=== PATIENT | male | born 1950 ===

== ENCOUNTER 2020-07-23 11:15 | Inpatient (IN) | payer OTHER ==
--- NOTE | 2020-07-23 12:11 | R.PREADM ---
PRE-ADMISSION SCREENING FORM SCREENING DATE AND TIME 07/22/2020 14:25 (CDT) ANTICIPATED REHAB ADMISSION DATE 07/24/2020 REFERRING FACILITY [facility] REFERRAL DATE AND TIME 07/22/2020 14:25 (CDT) ACUTE ADMIT DATE 07/02/2020 Previous Rehabilitation(s): No. REFERRING PHYSICIAN Akhil Collier REHAB FACILITY [facility] CLINICAL LIAISON Hui Mota PHYSICIAN REVIEWER Dr. Chaitanya Roldan M.D. MR# [id number] NAME NIKOLAY SOTELO ADDRESS [address] [facility] PHONE ( [place]IP [phone] DATE OF 1950 AGE 69 SSN# [id number] GENDER male MARITAL STATUS ADMIT FROM 02 - [facility] PRE-HOSPITAL LIVING SETTING 01 - Home (private home/apt. board/care, assisted living, half-way, transitional living) HOME TYPE AND DETAILS Type of home: apartment # of steps within the residence: 0 # of steps to enter the residence: 0 PRE-HOSPITAL LIVING WITH Alone FAMILY SUPPORT Yes PRIMARY FAMILY CONTACT NAME Ashia Vieira PRIMARY FAMILY CONTACT PHONE [phone] PHONE PRIMARY FAMILY CONTACT ON ADM.? no IS PRIMARY FAMILY CONTACT AUTH. REP.? no 1ST EMERGENCY CONTACT Ashia Vieira 1ST CONTACT PHONE [phone] PHONE 1ST CONTACT ON ADM. no IS 1ST CONTACT AUTH. REP.? no PHONE 2ND CONTACT ON ADM.? no PATIENT EMPLOYMENT STATUS Retired (for age) PATIENT EMPLOYER No Employer PAYOR INFORMATION: 1ST PAYOR NAME MEDICARE 1ST PAYOR PHONE [phone] 1ST PAYOR INJURY/ILLNESS DUE TO ACCIDENT? No ANOTHER [employer] RESPONSIBLE? No PRIMARY REHAB/ACUTE DIAGNOSIS: CAD/NSTEMI ONSET DATE 07/02/2020 REHAB IMPAIRMENT CATEGORY ([place]): 14 Cardiac does NOT meet 60% rule PRIMARY DIAGNOSIS-RELATED SURGERIES: CABG Cardiac Disorders (09) - performed by Akhil Collier on 07/15/2020 COMORBID REHAB/ACUTE DIAGNOSES: - Tier 1 Dependence on renal dialysis (Z99.2) - Non-Tiered Type 2 diabetes mellitus with diabetic neuropathy, unspecified (E11.40) - N/A NSTEMI Proteus UTI Acute on chronic encephalopathy HTN Anemia Secondary hyperPTH CAD BPH Dementia INTERVENTIONS: - CAD 02 sats Activity management Medications VS RISK FOR COMPLICATIONS: - CAD CHF Cardiac Arrest CO Pain SUMMARY OF ACUTE HOSPITALIZATION: Pt. is a 69 yo Right-handed male. On 07/02/2020 he was admitted to [facility] with diagnosis CAD. His impairment category is Cardiac 09 - Cardiac Disorders (09). Pre-morbidly, Pt. was independent/mod-I in Locomotion, Safety Awareness, Balance, Social Cognition, T ransfers Control, Sphincter Control, Self-Care, Communication, and Endurance; and he had good Locomot ion, Safety Awareness, Balance, Social Cognition, Transfers Control, Sphincter Control, Self-Care, an d Communication. Currently, he has deficits of Locomotion, Safety Awareness, Balance, Social Cognition, Transfers Cont rol, Self-Care, Communication, Endurance, and Sphincter Control. Pt. is now referred to [facility] for acute in-patient rehabilitation in order to maximize patient's functional independence in activities of daily living, strength, ROM, and mobi lity. Patient has realistic goal of being discharged at assistance level 7-Ind to reside at Home with Fami ly/Relatives. PAST MEDICAL HISTORY Acute on chronic encephalopathy Anemia BPH CAD Dementia Dependence on renal dialysis (Z99.2) HTN NSTEMI Proteus UTI Secondary hyperPTH Type 2 diabetes mellitus with diabetic neuropathy, unspecified (E11.40) MEDICATION ALLERGIES: No Known Drug Allergies (NKDA) ENVIRONMENTAL ALLERGIES: - Substance Allergies None Known - Other Allergies None Known CODE STATUS: Full code WEIGHT/HEIGHT/BMI: WEIGHT 154 lbs HEIGHT 5' 6" BMI 24.9 DIET: - Diet Type Regular - Diet - Solid Texture Regular - Diet - Liquid Texture Regular - Tube Feed N/A SKIN DIAGRAM: Incision on Chest; extent - small; stage - NS(Not Stageable). Treatment - Per Physician's Orders. REVIEW OF SYSTEMS: - Gen Alert and awake Lying in bed No apparent distress Oriented to: person, time, and place - Vital Signs Temperature: 36.7 F SBP/DBP: 122/66 Pulse: 74 Resp: 17 Vital signs stable, afebrile - CVS RRR VITAL SIGNS Temperature: 36.7. F SBP/DBP: 122/66 Pulse: 74 Resp: 17 Vital signs stable, afebrile CURRENT SPHINCTER CONTROL: Pre-hospital bladder status: continent # of bladder accidents in the last 7 days prior to screenin Pre-hospital bowel status: continent # of bowel accidents in the last 7 days prior to screenin Last Bowel Movement Date: 07/22/2020 CURRENT LOCOMOTION STATUS: distance walked 220 feet DETAILED CURRENT FUNCTIONAL STATUS: - Bladder accident frequency: 7-Ind - No accidents in the past 7 days - Bowel accident frequency: 7-Ind - No accidents in the past 7 days - Walking score based on distance walked: 0(N/A) score based on distance walked: 3(>=150ft) - Wheelchair score based on distance traveled: 0(N/A) QI SCORES: - Self-Care A. Eating 04-Supervision or touching assistance B. Oral hygiene 04-Supervision or touching assistance C. Toileting hygiene 02-Substantial/maximal assistance E. Shower/bathe self 02-Substantial/maximal assistance F. Upper body dressing 04-Supervision or touching assistance G. Lower body dressing 02-Substantial/maximal assistance H. Putting on/taking off footwear 88-Not attempted due to medical condition or safety concerns - Mobility A. Roll left and right 03-Partial/moderate assistance B. Sit to lying 03-Partial/moderate assistance C. Lying to sitting on side of bed 03-Partial/moderate assistance D. Sit to stand 03-Partial/moderate assistance E. Chair/dvf-yr-wikut transfer 03-Partial/moderate assistance F. Toilet transfer 03-Partial/moderate assistance G. Car transfer 88-Not attempted due to medical condition or safety concerns I. Walk 10 feet 03-Partial/moderate assistance J. Walk 50 feet with two turns 88-Not attempted due to medical condition or safety concerns K. Walk 150 feet 04-Supervision or touching assistance L. Walking 10 feet on uneven surfaces 88-Not attempted due to medical condition or safety concerns M. 1 step (curb) 88-Not attempted due to medical condition or safety concerns N. 4 steps 88-Not attempted due to medical condition or safety concerns O. 12 steps 88-Not attempted due to medical condition or safety concerns P. Picking up object 88-Not attempted due to medical condition or safety concerns R. Wheel 50 feet with two turns 88-Not attempted due to medical condition or safety concerns S. Wheel 150 feet 88-Not attempted due to medical condition or safety concerns - Bladder and Bowel Bladder continence 0-Always continent Bowel continence 0-Always continent - Endurance Fair - Balance Fair - Safety Awareness Fair CURRENT FUNC. DEFICITS: Self-Care, Mobility, Endurance, Balance, and Safety Awareness CURRENT / PREVIOUS ASSISTIVE DEVICES: BSC HISTORY OF FALLS. HAS THE PATIENT HAD TWO OR MORE FALLS IN THE PAST YEAR OR ANY FALL WITH INJURY IN T HE PAST YEAR?: No PRIOR SURGERY. DID THE PATIENT HAVE MAJOR SURGERY DURING THE 100 DAYS PRIOR TO ADMISSION?: Yes THERAPY NOTES FROM ACUTE CARE: Attached. SPECIAL NEEDS: - Safety Concerns Skin breakdown precautions needed due to skin breakdown risk PATIENT NEEDS ACTIVE AND ONGOING THERAPEUTIC INTERVENTION OF MULTIPLE THERAPY DISCIPLINES, INCLUDING: - Dietary and Nutrition Adequate Nutrition. Nutritional Education. Nutritional Supplements. PATIENT NEEDS CLOSE MEDICAL SUPERVISION BY A REHABILITATION PHYSICIAN FOR: Coordination of Treatment Team Diabetes Management Medical and Co-Morbidity Management Wound Care Pain Management Post-Op Complications PATIENT REQUIRES 24X7 REHAB NURSING FOR MEDICAL AND FUNCTIONAL MGT. OF THE FOLLOWING DEFICITS: Disease Management Medication Management Patient/Family Education Providing Safe Environment Skin Integrity Ambulation Transfers Pain Management Bowel and Bladder Management ADL's PATIENT REQUIRES INTENSIVE, COORDINATED INTERDISCIPLINARY APPROACH TO REHAB: Arranging Home Equipment/Services Discharge Planning Family Intervention/Training Casserole Preparer/Case Management PATIENT REHAB POTENTIAL: Kassi SOTELO is able and expected to receive 3 hours of individualized therapy daily on at least 5 of e very 7 days Kassi SOTELO's prognosis for significant practical improvement within a reasonable period of time appea rs Good Expected level of measurable improvement will be of a practical value to Kassi SOTELO's functional capa city or adaptations to impairments Has a viable Discharge Plan Medically appropriate; condition is sufficiently stable to participate in intensive rehab program DISCHARGE PLAN: - Estimated Length of Stay (days) 10. - Consensus on plan Discharge plan has been discussed with primary caregiver. Patient/Family is in agreement with the elsi n. Primary caregiver is in agreement with the plan. - Patient/Family Goals Return home independently. - Planned Living Setting Upon Discharge Home, to live with Family/Relatives. Transitional Living. Primary caregiver: Pt self. RECOMMENDED CARE LEVEL: IRF RECOMMENDATION DETAILS: Recommended Admission to Comprehensive Rehabilitation Program to Increase Functional [place] SCREENER'S COMPLETENESS CONFIRMATION: - Screening Confirmation The patient data collection on this preadmission screening form is finished PHYSICIANS REVIEW AND ADMISSION DETERMINATION Admit - Based on my review of the Pre-Admission Screening results, in my medical judgment and experie nce, I concur with the findings and recommend admission to [facility], as this patient requires an IRF level of care. SIGNATURE PANEL: Odd Bundle Worker - [electronically] signed by Hui Mota on 07/23/2020 at 10:54 (CDT) Odd Bundle Worker - [electronically] signed by Karin Belcher RN on 07/23/2020 at 11:00 (CDT) Physician Reviewer - [electronically] signed by Dr. Chaitanya Roldan M.D. on 07/23/2020 at 12:09 (CDT )
--- OUTSIDE RECORDS SUMMARY | 2020-07-23 23:24 | XMS REPORT | Continuity of Care Document ---
:1950 Author Organization [facility] t Address [address] [place] [address] Care Team Providers Name Role Phone Leilani Webber MD Primary Care Physician Rajni Collier Attending Clinician Unavailable DR RON Attending Clinician Unavailable DR MARCOS Attending Clinician Unavailable Rajni Collier Admitting Clinician Unavailable DR RON Admitting Clinician Unavailable DR MARCOS Admitting Clinician Unavailable Payers Payer Name Policy Type Policy Number Effective Date Expiration Date S ource Problems Condition Condition Condition Status Onset Resolution Last Treating Co mments Source Name Details Category Date Date Treatment Clinician Date Osteomyeli Osteomyeli Disease Active [place] [facility] 07-15 [facility] 00:[facility]: st 00 Allergies, Adverse Reactions, Alerts Allergy Allergy Status Severity Reaction(s) Onset Inactive Treating Comm ents Source Name Type Date Date Clinician No Known DA Active [facility] 07-18 s 00:00: [address] No Known DA Active [facility] 07-17 [place] s 00:00: [address] No Known DA Active U [facility] 07-03 [facility] 00:00: [address] Social History Social Habit Start Date Stop Date Quantity Comments Source Tobacco use and 2018-07-18 2018-07-18 Never used [place] [facility] exposure 00:00:00 00:00:00 Alcohol intake 2018-07-18 2018-07-18 Current drinker [place] [facility] 00:00:00 00:00:00 of alcohol (finding) Sex Assigned At [birth year] [facility]ist 00:00:00 00:00:00 Smoking Status Start Date Stop Date Source Never smoker [place] [facility] Medications Ordered Filled Start Stop Current Ordering Indication Dosage Frequency Signature Comments Components Source Medication Medication Date Date Medication? Clinician (SIG) Name Name pantoprazol Yes 40mg QD Take 1 [place] tablet (40 [facility] (PROTONIX) 00:00: mg total) st 40 MG EC 00 by mouth tablet daily. Procedures This patient has no known procedures. Plan of Care Planned Activity Planned Date Details Comments Source Future Scheduled 2020-09-08 INFLUENZA VACCINE [facility] 00:00:00 [code = INFLUENZA VACCINE] Future Scheduled 1998 COLONOSCOPY SCREENING [facility] Test 00:00:00 [code = COLONOSCOPY SCREENING] Future Scheduled 1998 SHINGLES VACCINES (#1) [facility] Test 00:00:00 [code = SHINGLES VACCINES (#1)] Future Scheduled 1966 Hepatitis C screening [facility] Test 00:00:00 (procedure) [code = 565463845] Future Scheduled 1960 COVID-19 VACCINE (1) Benjamin [facility] 00:00:00 [code = COVID-19 VACCINE (1)] Future Scheduled 1954 65+ PNEUMOCOCCAL [place] [facility] Test 00:00:00 VACCINE (1 of 2 - PPSV23) [code = 65+ PNEUMOCOCCAL VACCINE (1 of 2 - PPSV23)] Encounters Start End Encounter Admission Attending Care Care Encounter Source Date/Time Date/Time Type Type Clinicians Facility Department ID 2020-07-02 2020-07-23 Inpatient UR GALLITO Collier INTE [id number] [facility] 13:10:00 21:01:00 Akhil [id number] [facility] 2020-06-28 2020-07-03 Inpatient [place] [facility]AS [facility] [place] [id number] [place] 10:16:00 18:26:00 [facility] 2018-08-22 2018-08-25 Inpatient Claudia RODRÍGUEZ [facility] [id number] [place] 18:08:00 19:47:00 [facility] Results Test Description Test Time Test Comments Results Result Comments Source GLUCOSE BEDSIDE TESTING 2020-07-23 20:43:00 Test Item Value Reference Range Interpretation Comme nts GLUCOSE BEDSIDE TESTING (test code = GLUBED) 263 MG/DL 60-99 H GLUCOSE BEDSIDE [id number] 16:53:00 Test Item Value Reference Range Interpretation Comments GLUCOSE BEDSIDE TESTING (test code 229 MG/DL 60-99 H = GLUBED) GLUCOSE BEDSIDE [id number] 11:27:00 Test Item Value Reference Range Interpretation Comments GLUCOSE BEDSIDE TESTING (test code 294 MG/DL 60-99 H = GLUBED) GLUCOSE BEDSIDE [id number] 07:43:00 Test Item Value Reference Range Interpretation Comments GLUCOSE BEDSIDE TESTING (test code 228 MG/DL 60-99 H = GLUBED) GLUCOSE BEDSIDE [id number] 04:01:00 Test Item Value Reference Range Interpretation Comments GLUCOSE BEDSIDE TESTING (test code 218 MG/DL 60-99 H = GLUBED) COMPREHENSIVE METABOLIC [id number] 03:56:00 Test Item Value Reference Range Interpretation Comments SODIUM (test code 136 MMOL/L 137-145 L = NA) POTASSIUM (test 4.8 MMOL/L 3.5-5.1 N code = K) CHLORIDE (test 103 MMOL/L 98-107 N code = CL) CARBON DIOXIDE 23 MMOL/L 22-30 N (test code = CO2) ANION GAP (test 15 MMOL/L 14-24 N code = GAP) GLUCOSE (test 220 MG/DL 74-106 H code = GLU) BLOOD UREA 43 MG/DL 9-20 H NITROGEN (test code = BUN) GLOMERULAR 15 Reporting units : FILTRATION RATE ml/min/1.73 m2 (Modified (test code = GFR) MDRD Formu la)Reference Range: > or = 6 0 ml/min/1.73 m2 CREATININE (test 3.90 MG/DL 0.66-1.25 H code = CREAT) TOTAL PROTEIN 6.7 G/DL 6.2-7.6 N [facility] Clinical Diagnostic (test code = has made us zayra re of PROT) newinformation regarding the potential i nterference ofEltrombopag (a bone marrow stimulan t used to treatthrombocyt onmenia and aplastic anemia ) with specific assays on the Vitros 5600 of which Total Protein is one of thoseassays per formed in our lab.Interfe rence testing perform ed at Ortho determined that Eltrombopag does interfere with Vitros Total Protein asfollowsEltrom bopag Interference fo r Vitros Product Total Protein:======= Eltrombopag Max Observed A vg. BiasConcentrati on Concentration Concentration== ==== 2.5 mg/dl 6.0 g/dl +0.41 +0.34 3.5 mg/dl 6.0 g/dl +0.50 +0.45 5 mg/dl 6.0 g/dl +0.73 +0.65 2.5 mg/dl 8.0 g/dl +0.44 +0.41 3.5 mg/dl 8.0 g/dl +0.55 +0.52 5 mg/dl 8.0 g/dl +0.86 +0.77 ALBUMIN (test 3.5 G/DL 3.5-5.0 N code = ALB) CALCIUM (test 9.0 MG/DL 8.4-10.2 N code = CA) BILIRUBIN TOTAL 0.5 MG/DL 0.2-1.3 N Eltrombopag Interference (test code = for Vitros Prod uct TBil, BILT) BuBc: Assa y Eltrombopag Analyte/ Max Observed Avg. Bias Concentrati on Concentration Concentration== ====TBil 7mg/dl T Raj/ 1.2mg/dl +0.23 mg.dl +0.20mg/dlBuBc 3.5mg/dl Bu/0.8mg/dl +0.25mg/dl +0 .24mg/dlBuBc 7 mg/dl Bu/14.2mg/dl +0.38mg/dl +0.25mg/dlBuBc 5mg/dl Bc/0mg/dl +0.25mg/dl +0 .15mg/dlBuBc 3.5mg/dl Bc/2.8mg/dl +0.25mg/dl +0.23mg/dl SGOT/AST (test 27 UNITS/L 17-59 N code = AST) SGPT/ALT (test 21 UNITS/L <50 code = ALT) ALKALINE 102 UNITS/L 38-126 N PHOSPHATASE (test code = ALKP) [id number] 03:56:00 Test Item Value Reference Range Interpretation Comments PHOSPHOROUS (test code = PHOS) 4.1 MG/DL 2.5-4.5 N [id number] 03:56:00 Test Item Value Reference Range Interpretation Comments MAGNESIUM (test code = MAG) 1.8 MG/DL 1.6-2.3 N CBC W/AUTO [id number] 03:45:00 Test Item Value Reference Range Interpretation Comments WHITE BLOOD CELL (test code = 5.0 K/MM3 3.8-9.8 N WBC) RED BLOOD CELL (test code = 3.02 M/MM3 3.95-5.67 L RBC) HEMOGLOBIN (test code = HGB) 8.9 G/DL 12.4-16.7 L HEMATOCRIT (test code = HCT) 28.6 % 35.9-49.5 L MEAN CELL VOLUME (test code = 95 fL 81.7-96.1 N MCV) MEAN CELL HGB (test code = MCH) 29.5 pg 27.6-33.2 N MEAN CELL HGB CONCETRATION 31.1 % 32.9-35.5 L (test code = MCHC) RED CELL DISTRIBUTION WIDTH 15.1 % 12.1-15.2 N (test code = RDW) PLATELET COUNT (test code = 213 K/MM3 129-368 N PLT) MEAN PLATELET VOLUME (test code 10.2 fl 7.4-10.4 N = MPV) NEUTROPHIL % (test code = NT%) 67.1 % 43-75 N IMMATURE GRANULOCYTE % (test 1.4 % 0.0-2.0 N code = IG%) LYMPHOCYTE % (test code = LY%) 16.9 % 14-44 N MONOCYTE % (test code = MO%) 10.8 % 4-13 N EOSINOPHIL % (test code = EO%) 3.0 % 0-6 N BASOPHIL % (test code = BA%) 0.8 % 0-2 N NUCLEATED RBC % (test code = 0.0 % 0-1.0 N NRBC%) NEUTROPHIL # (test code = NT#) 3.34 K/mm3 2.0-7.6 N IMMATURE GRANULOCYTE # (test 0.07 x10 3/uL 0-0.03 H code = IG#) LYMPHOCYTE # (test code = LY#) 0.84 K/mm3 1.0-3.8 L MONOCYTE # (test code = MO#) 0.54 K/mm3 0.1-0.8 N EOSINOPHIL # (test code = EO#) 0.15 K/mm3 0.0-0.2 N BASOPHIL # (test code = BA#) 0.04 K/mm3 0.0-0.2 N NUCLEATED RBC # (test code = 0.00 K/mm3 0.0-0.1 N NRBC#) GLUCOSE BEDSIDE [id number] 19:28:00 Test Item Value Reference Range Interpretation Comments GLUCOSE BEDSIDE TESTING (test code 238 MG/DL 60-99 H = GLUBED) GLUCOSE BEDSIDE [id number] 16:17:00 Test Item Value Reference Range Interpretation Comments GLUCOSE BEDSIDE TESTING (test code 175 MG/DL 60-99 H = GLUBED) GLUCOSE BEDSIDE [id number] 11:56:00 Test Item Value Reference Range Interpretation Comments GLUCOSE BEDSIDE TESTING (test code 191 MG/DL 60-99 H = GLUBED) GLUCOSE BEDSIDE [id number] 05:47:00 Test Item Value Reference Range Interpretation Comments GLUCOSE BEDSIDE TESTING (test code 280 MG/DL 60-99 H = GLUBED) GLUCOSE BEDSIDE [id number] 17:35:00 Test Item Value Reference Range Interpretation Comments GLUCOSE BEDSIDE TESTING 222 MG/DL 60-99 H Noti fied Nurse~ (test code = GLUBED) GLUCOSE BEDSIDE [id number] 12:02:00 Test Item Value Reference Range Interpretation Comments GLUCOSE BEDSIDE TESTING 212 MG/DL 60-99 H Noti fied Nurse~ (test code = GLUBED) GLUCOSE BEDSIDE [id number] 07:17:00 Test Item Value Reference Range Interpretation Comments GLUCOSE BEDSIDE TESTING 196 MG/DL 60-99 H Noti fied Nurse~ (test code = GLUBED) GLUCOSE BEDSIDE [id number] 19:55:00 Test Item Value Reference Range Interpretation Comments GLUCOSE BEDSIDE TESTING (test code 261 MG/DL 60-99 H = GLUBED) GLUCOSE BEDSIDE [id number] 16:48:00 Test Item Value Reference Range Interpretation Comments GLUCOSE BEDSIDE TESTING 215 MG/DL 60-99 H Noti fied Nurse~ (test code = GLUBED) GLUCOSE BEDSIDE [id number] 12:59:00 Test Item Value Reference Range Interpretation Comments GLUCOSE BEDSIDE TESTING 184 MG/DL 60-99 H Noti fied Nurse~ (test code = GLUBED) GLUCOSE BEDSIDE [id number] 09:10:00 Test Item Value Reference Range Interpretation Comments GLUCOSE BEDSIDE TESTING (test code 173 MG/DL 60-99 H = GLUBED) GLUCOSE BEDSIDE [id number] 20:53:00 Test Item Value Reference Range Interpretation Comments GLUCOSE BEDSIDE TESTING (test code 157 MG/DL 60-99 H = GLUBED) GLUCOSE BEDSIDE [id number] 16:09:00 Test Item Value Reference Range Interpretation Comments GLUCOSE BEDSIDE TESTING (test code 159 MG/DL 60-99 H = GLUBED) GLUCOSE BEDSIDE [id number] 11:56:00 Test Item Value Reference Range Interpretation Comments GLUCOSE BEDSIDE TESTING (test code 211 MG/DL 60-99 H = GLUBED) - XR CHEST [id number] 08:08:00 [facility] 1950 Sex: M Patient Name: NIKOLAY SOTELO Unit No: [id number] EXAMS: CPT CODE: [id number] XR CHEST [id number] EXAM: - XR CHEST 1V HISTORY: S/P CABG COMPARISON: 07/18/2020 FINDINGS: Right internal jugular dialysis catheterand left subclavian central line in unchanged position. Median sternotomy wires again noted. Patchy retrocardiac airspace opacities are similar to the prior exam. No pleural effusionor pneumothorax. Mild enlargement of the cardiac silhouette. No acute osseous abnormalities. IMPRESSION: Mild retrocardiac atelectasis and/or pulmonary edema. at 0808 Reported and signed by: Ambrocio Kline MD CC: Jalyn Najera MD; Magaly MARTINEZ Technologist: Rylie Colin Transcrpt Date/Tm/Trnsp: 07/19/2020 (0808) t.[email or web address] Orig Print D/T: S: 07/19/2020 (0847) [facility] NAME: NIKOLAY SOTELO [id number] PHYS: [place] [address] : 1950 AGE : 69 SEX: M LOC: Z.SI07 A PHONE#: [phone] EXAM DATE: 07/19/2020 STATUS: ADM IN FAX #: [phone] RADIOLOGY NO: PAGE 1 Signed ReportCOMPREHENSIVE METABOLIC [id number] 06:56:00 Test Item Value Reference Range Interpretation Comments SODIUM (test code 135 MMOL/L 137-145 L = NA) POTASSIUM (test 3.7 MMOL/L 3.5-5.1 N code = K) CHLORIDE (test 100 MMOL/L 98-107 N code = CL) CARBON DIOXIDE 28 MMOL/L 22-30 N (test code = CO2) ANION GAP (test 11 MMOL/L 14-24 L code = GAP) GLUCOSE (test 228 MG/DL 74-106 H code = GLU) BLOOD UREA 24 MG/DL 9-20 H NITROGEN (test code = BUN) GLOMERULAR 24 Reporting units : FILTRATION RATE ml/min/1.73 m2 (Modified (test code = GFR) MDRD Formu la)Reference Range: > or = 6 0 ml/min/1.73 m2 CREATININE (test 2.60 MG/DL 0.66-1.25 H code = CREAT) TOTAL PROTEIN 6.2 G/DL 6.2-7.6 N [facility] Clinical Diagnostic (test code = has made us zayra re of PROT) newinformation regarding the potential i nterference ofEltrombopag (a bone marrow stimulan t used to treatthrombocyt onmenia and aplastic anemia ) with specific assays on the Vitros 5600 of which Total Protein is one of thoseassays per formed in our lab.Interfe rence testing perform ed at Ortho determined that Eltrombopag does interfere with Vitros Total Protein asfollowsEltrom bopag Interference fo r Vitros Product Total Protein:======= Eltrombopag Max Observed A vg. BiasConcentrati on Concentration Concentration== ==== 2.5 mg/dl 6.0 g/dl +0.41 +0.34 3.5 mg/dl 6.0 g/dl +0.50 +0.45 5 mg/dl 6.0 g/dl +0.73 +0.65 2.5 mg/dl 8.0 g/dl +0.44 +0.41 3.5 mg/dl 8.0 g/dl +0.55 +0.52 5 mg/dl 8.0 g/dl +0.86 +0.77 ALBUMIN (test 3.2 G/DL 3.5-5.0 L code = ALB) CALCIUM (test 8.0 MG/DL 8.4-10.2 L code = CA) BILIRUBIN TOTAL 0.4 MG/DL 0.2-1.3 N Eltrombopag Interference (test code = for Vitros Prod uct TBil, BILT) BuBc: Assa y Eltrombopag Analyte/ Max Observed Avg. Bias Concentrati on Concentration Concentration== ====TBil 7mg/dl T Raj/ 1.2mg/dl +0.23 mg.dl +0.20mg/dlBuBc 3.5mg/dl Bu/0.8mg/dl +0.25mg/dl +0 .24mg/dlBuBc 7 mg/dl Bu/14.2mg/dl +0.38mg/dl +0.25mg/dlBuBc 5mg/dl Bc/0mg/dl +0.25mg/dl +0 .15mg/dlBuBc 3.5mg/dl Bc/2.8mg/dl +0.25mg/dl +0.23mg/dl SGOT/AST (test 33 UNITS/L 17-59 N code = AST) SGPT/ALT (test 17 UNITS/L <50 code = ALT) ALKALINE 83 UNITS/L 38-126 N PHOSPHATASE (test code = ALKP) [id number] 06:56:00 Test Item Value Reference Range Interpretation Comments MAGNESIUM (test code = MAG) 1.9 MG/DL 1.6-2.3 N CBC W/AUTO [id number] 06:38:00 Test Item Value Reference Range Interpretation Comments WHITE BLOOD CELL (test code = 4.7 K/MM3 3.8-9.8 N WBC) RED BLOOD CELL (test code = 2.74 M/MM3 3.95-5.67 L RBC) HEMOGLOBIN (test code = HGB) 8.1 G/DL 12.4-16.7 L HEMATOCRIT (test code = HCT) 25.7 % 35.9-49.5 L MEAN CELL VOLUME (test code = 94 fL 81.7-96.1 N MCV) MEAN CELL HGB (test code = MCH) 29.6 pg 27.6-33.2 N MEAN CELL HGB CONCETRATION 31.5 % 32.9-35.5 L (test code = MCHC) RED CELL DISTRIBUTION WIDTH 15.0 % 12.1-15.2 N (test code = RDW) PLATELET COUNT (test code = 121 K/MM3 129-368 L PLT) MEAN PLATELET VOLUME (test code 11.3 fl 7.4-10.4 H = MPV) NEUTROPHIL % (test code = NT%) 73.5 % 43-75 N IMMATURE GRANULOCYTE % (test 0.4 % 0.0-2.0 N code = IG%) LYMPHOCYTE % (test code = LY%) 12.6 % 14-44 L MONOCYTE % (test code = MO%) 10.0 % 4-13 N EOSINOPHIL % (test code = EO%) 2.6 % 0-6 N BASOPHIL % (test code = BA%) 0.9 % 0-2 N NUCLEATED RBC % (test code = 0.0 % 0-1.0 N NRBC%) NEUTROPHIL # (test code = NT#) 3.46 K/mm3 2.0-7.6 N IMMATURE GRANULOCYTE # (test 0.02 x10 3/uL 0-0.03 N code = IG#) LYMPHOCYTE # (test code = LY#) 0.59 K/mm3 1.0-3.8 L MONOCYTE # (test code = MO#) 0.47 K/mm3 0.1-0.8 N EOSINOPHIL # (test code = EO#) 0.12 K/mm3 0.0-0.2 N BASOPHIL # (test code = BA#) 0.04 K/mm3 0.0-0.2 N NUCLEATED RBC # (test code = 0.00 K/mm3 0.0-0.1 N NRBC#) GLUCOSE BEDSIDE [id number] 19:40:00 Test Item Value Reference Range Interpretation Comments GLUCOSE BEDSIDE TESTING (test code 203 MG/DL 60-99 H = GLUBED) - XR CHEST [id number] 17:25:00 [facility] : 1950 Sex: M Patient Name: NIKOLAY SOTELO Unit No: [id number] EXAMS: CPT CODE: [id number] XR CHEST [id number] HISTORY: Chest tube Comparison to July 18, 2020 at 516 Location code: B2 FINDINGS: Frontal view of the chest demonstrates a moderatelyenlarged cardiomediastinal silhouette. The trachea is midline. Central venous congestion. There is a trace left effusion. No pneumothorax. The bones are intact. RightIJ dual-lumen catheter and left subclavian catheter are intact. Mediastinal wires. IMPRESSION: 1. Moderate cardiomegaly and central venous congestion with a trace left effusion at 1725 Reported and signed by: Angus Mathias M.D. CC: Jalyn Najera MD Technologist: Yesenia Morse, BSRS, RT(R) Transcrpt Date/Tm/Trnsp: 07/18/2020 (8665) [email or web address] Orig Print D/T: S: 07/18/2020 (4547) [facility] NAME: NIKOLAY SOTELO [id number] PHYS: [place] [address] : 1950 AGE: 69 SEX: M ACCT NO: [id number] LOC: Z.SI05 A PHONE #: [phone] EXAM DATE: 07/18/2020 STATUS: ADM IN FAX #: [phone] RADIOLOGY NO: PAGE 1 SignedReportGLUCOSE BEDSIDE TESTING 2020-07-18 16:33:00 Test Item Value Reference Range Interpretation Comments GLUCOSE BEDSIDE TESTING (test code 206 MG/DL 60-99 H = GLUBED) GLUCOSE BEDSIDE [id number] 11:44:00 Test Item Value Reference Range Interpretation Comments GLUCOSE BEDSIDE TESTING (test code 169 MG/DL 60-99 H = GLUBED) GLUCOSE BEDSIDE [id number] 10:16:00 Test Item Value Reference Range Interpretation Comments GLUCOSE BEDSIDE TESTING (test code 216 MG/DL 60-99 H = GLUBED) - XR CHEST [id number] 08:11:00 [facility] : 1950 Sex: M Patient Name: NIKOLAY SOTELO Unit No: [id number] EXAMS: CPT CODE: [id number] XR CHEST [id number] EXAM: - XR CHEST 1V HISTORY: S/P CABG COMPARISON: 07/17/2020 FINDINGS: Right internal jugular dialysis catheter and left subclavian central line in unchanged position. Median sternotomy wires again noted. Patchy bilateral airspace opacities are similar to the prior exam. No pleural effusion or pneumothorax. Mild enlargement of the cardiac silhouette. No acute osseous abnormalities. IMPRESSION: Congestive heart failure with mild pulmonary edema. at 0811 Reported and signed by: Ambrocio Kline MD CC: Jalyn Najera MD; Magaly MARTINEZ Technologist: Rylie Colin Transcrpt Date/Tm/Trnsp: 07/18/2020 (0811)t.[id number].VB7 Orig Print D/T: S: 07/18/2020 (0814) [facility] NAME: NIKOLAY SOTELO [id number] PHYS: [place] [address] : 1950 AGE: 69 SEX: M LOC: Z.SI05 A PHONE #: [phone] EXAM DATE: 07/18/2020 STATUS: ADM IN FAX #: [phone] RADIOLOGY NO: PAGE 1 Signed ReportGLUCOSE BEDSIDE [id number] 07:24:00 Test Item Value Reference Range Interpretation Comments GLUCOSE BEDSIDE TESTING (test code 183 MG/DL 60-99 H = GLUBED) BASIC METABOLIC [id number] 07:06:00 Test Item Value Reference Range Interpretation Comments SODIUM (test code = 134 MMOL/L 137-145 L NA) POTASSIUM (test code = 4.4 MMOL/L 3.5-5.1 N K) CHLORIDE (test code = 99 MMOL/L 98-107 N CL) CARBON DIOXIDE (test 24 MMOL/L 22-30 N code = CO2) ANION GAP (test code = 15 MMOL/L 14-24 N GAP) GLUCOSE (test code = 182 MG/DL 74-106 H GLU) BLOOD UREA NITROGEN 42 MG/DL 9-20 H (test code = BUN) GLOMERULAR FILTRATION 15 Report ing units: RATE (test code = GFR) ml/mi n/1.73 m2 (Modified MDRD Formula)Referen ce Range: > or = 6 0 ml/min/1.73 m2 CREATININE (test code 4.00 MG/DL 0.66-1.25 H = CREAT) CALCIUM (test code = 8.0 MG/DL 8.4-10.2 L CA) [id number] 07:06:00 Test Item Value Reference Range Interpretation Comments ALBUMIN (test code = ALB) 3.2 G/DL 3.5-5.0 L [id number] 07:06:00 Test Item Value Reference Range Interpretation Comments PHOSPHOROUS (test code = PHOS) 4.6 MG/DL 2.5-4.5 H [id number] 07:06:00 Test Item Value Reference Range Interpretation Comments MAGNESIUM (test code = MAG) 2.2 MG/DL 1.6-2.3 N CBC W/AUTO [id number] 06:54:00 Test Item Value Reference Range Interpretation Comments WHITE BLOOD CELL (test code = 7.0 K/MM3 3.8-9.8 N WBC) RED BLOOD CELL (test code = 2.82 M/MM3 3.95-5.67 L RBC) HEMOGLOBIN (test code = HGB) 8.4 G/DL 12.4-16.7 L HEMATOCRIT (test code = HCT) 26.3 % 35.9-49.5 L MEAN CELL VOLUME (test code = 93 fL 81.7-96.1 N MCV) MEAN CELL HGB (test code = MCH) 29.8 pg 27.6-33.2 N MEAN CELL HGB CONCETRATION 31.9 % 32.9-35.5 L (test code = MCHC) RED CELL DISTRIBUTION WIDTH 15.2 % 12.1-15.2 N (test code = RDW) PLATELET COUNT (test code = 111 K/MM3 129-368 L PLT) MEAN PLATELET VOLUME (test code 11.4 fl 7.4-10.4 H = MPV) NEUTROPHIL % (test code = NT%) 73.4 % 43-75 N IMMATURE GRANULOCYTE % (test 0.4 % 0.0-2.0 N code = IG%) LYMPHOCYTE % (test code = LY%) 14.7 % 14-44 N MONOCYTE % (test code = MO%) 9.8 % 4-13 N EOSINOPHIL % (test code = EO%) 1.0 % 0-6 N BASOPHIL % (test code = BA%) 0.7 % 0-2 N NUCLEATED RBC % (test code = 0.0 % 0-1.0 N NRBC%) NEUTROPHIL # (test code = NT#) 5.11 K/mm3 2.0-7.6 N IMMATURE GRANULOCYTE # (test 0.03 x10 3/uL 0-0.03 N code = IG#) LYMPHOCYTE # (test code = LY#) 1.02 K/mm3 1.0-3.8 N MONOCYTE # (test code = MO#) 0.68 K/mm3 0.1-0.8 N EOSINOPHIL # (test code = EO#) 0.07 K/mm3 0.0-0.2 N BASOPHIL # (test code = BA#) 0.05 K/mm3 0.0-0.2 N NUCLEATED RBC # (test code = 0.00 K/mm3 0.0-0.1 N NRBC#) GLUCOSE BEDSIDE [id number] 20:28:00 Test Item Value Reference Range Interpretation Comments GLUCOSE BEDSIDE TESTING (test code 209 MG/DL 60-99 H = GLUBED) GLUCOSE BEDSIDE [id number] 17:08:00 Test Item Value Reference Range Interpretation Comments GLUCOSE BEDSIDE TESTING (test code 235 MG/DL 60-99 H = GLUBED) ARTERY,[id number] 14:56:00 Test Item Value Reference Range Interpretation Comments ARTERY,PLAQUE (test code = ART) --------RUN DATE: 07/17/20 [place] - LAB PAGE 1 RUN TIME: 1456 Specimen Inquiry RUN USER: INTERFACE --------PATIENT: NIKOLAY SOTELO LOC: AMA U #: [id number] AGE/SX: 69/M ROOM: [facility] RE07/02/20[facility] DR: Akhil Collier MD : 46 BED: A DIS: STATUS: ADM IN TLOC: -------- SPEC #: [id number] RECD: 07/16/20 STATUS: CEZAR REQ #: [id number] KAL: 07/15/[address]: Akhil Collier MD ENTERED: 07/16/20 SP TYPE: ARTERY, PL OTHR DR: Self Referred Margarita Espinal MD, Salman Siraj MD Amante, Brigani G MD Garcia, Alfredo T MDORDERED: DECAL, SURG PATH LVL 3 CODES: [id number] - ARTERY, NOS [id number] - ARTERY, NOS PLAQUE, NOS [id number] - ARTERY, NOS NO EVIDENCE OF [id number] - ARTERY, NOS ATHEROSCLEROSIS [id number] - CORONARY ARTERY COPIES TO: [place] [id number] [place] [address] Jalyn Najera MD [address] [facility] [place] [address] Christoph Becerra MD [address] [place], [place] [id number] [place] [address] [place] [address] [place] [address] [facility] [address] [place] [address] ICD CODES: 440 - PROCEDURES: DECAL (07/16/20-1656) CONTINUED ON NEXT PAGE --------RUN DATE: 07/17/20 [facility] - LAB PAGE 2 RUN TIME: 1455 Specimen Inquiry RUN USER: INTERFACE --------SPEC #: [id number] PATIENT: NIKOLAY SOTELO #[id number] (Continued) SURG PATH LVL 3 (07/16/20-1026) TISSUES: A. ARTERY, NOS - PLAQUE FROM DIAGNAL CORONARY ARTERY CPT CODES CPT CODE(S): 82835 , 89537 , , , , , FINAL DIAGNOSIS Diagonal coronary artery, endarterectomy: ATHEROSCLEROTIC PLAQUE NEGATIVE FOR MALIGNANCY GROSS DESCRIPTION Plaque from diagonal coronary artery. Received is yellow-kohler calcified plaque, 2.3 x 0.3 x 0.2 cm, sectioned and submitted for brief decalcification as A1. /tc/nick MICROSCOPIC DESCRIPTION Plaque from diagonal coronary artery. Sections show fragments of atherosclerotic plaque. No malignancy is seen. /nick Signed SIGNATURE ON FILE Pamela Brown 07/17/20 1456 -------- END OF REPORT GLUCOSE BEDSIDE [id number] 11:41:00 Test Item Value Reference Range Interpretation Comments GLUCOSE BEDSIDE TESTING (test code 208 MG/DL 60-99 H = GLUBED) - XR CHEST [id number] 08:00:00 [facility] : 1950 Sex: M Patient Name: NIKOLAY SOTELO Unit No: [id number] EXAMS: CPT CODE: [id number] XR CHEST [id number] EXAMINATION: Frontal chest radiograph INDICATION: Status postCABG COMPARISON: Previous day LOCATION: C1 FINDINGS:Tunneled right chest dialysis catheter terminates over right atrium. Left central catheter terminates over SVC. Interval removal of PA catheter. Enlarged cardiac silhouette poststernotomy. Tiny pleural effusions. No pneumothorax. Patchy bilateral atelectasis and bilateral interstitial opacities likely representing interstitial edema similar to prior. IMPRESSION: No significant change. at 0800 Reported and signed by: Niall Mann MD CC: Jalyn Najera MD; Magaly MARTINEZ Technologist: RT Hien(R) Transcrpt Date/Tm/Trnsp: 07/17/2020 (0800) [email or web address] Orig Print D/T: S: 07/17/2020 (0803) [facility] NAME: NIKOLAY SOTELO [id number] PHYS: [place] [address] : 1950 AGE: 69 SEX: M LOC: Z.SI05 A PHONE #: [phone] EXAM DATE: 07/17/2020 STATUS: ADM IN FAX #: [phone] RADIOLOGY NO: PAGE 1 Signed ReportGLUCOSE BEDSIDE [id number] 20:49:00 Test Item Value Reference Range Interpretation Comments GLUCOSE BEDSIDE TESTING (test code 245 MG/DL 60-99 H = GLUBED) GLUCOSE BEDSIDE [id number] 15:18:00 Test Item Value Reference Range Interpretation Comments GLUCOSE BEDSIDE TESTING (test code 102 MG/DL 60-99 H = GLUBED) GLUCOSE BEDSIDE [id number] 14:36:00 Test Item Value Reference Range Interpretation Comments GLUCOSE BEDSIDE TESTING (test code 133 MG/DL 60-99 H = GLUBED) GLUCOSE BEDSIDE [id number] 13:35:00 Test Item Value Reference Range Interpretation Comments GLUCOSE BEDSIDE TESTING (test code 158 MG/DL 60-99 H = GLUBED) GLUCOSE BEDSIDE [id number] 12:31:00 Test Item Value Reference Range Interpretation Comments GLUCOSE BEDSIDE TESTING (test code 198 MG/DL 60-99 H = GLUBED) GLUCOSE BEDSIDE [id number] 11:19:00 Test Item Value Reference Range Interpretation Comments GLUCOSE BEDSIDE TESTING (test code 196 MG/DL 60-99 H = GLUBED) GLUCOSE BEDSIDE [id number] 10:37:00 Test Item Value Reference Range Interpretation Comments GLUCOSE BEDSIDE TESTING (test code 196 MG/DL 60-99 H = GLUBED) GLUCOSE BEDSIDE [id number] 09:10:00 Test Item Value Reference Range Interpretation Comments GLUCOSE BEDSIDE TESTING (test code 148 MG/DL 60-99 H = GLUBED) - XR CHEST [id number] 08:08:00 [facility] 1950 Sex: M Patient Name: NIKOLAY SOTELO Unit No: [id number] EXAMS: CPT CODE: [id number] XR CHEST [id number] EXAMINATION: Frontal chest radiograph INDICATION: Status postCABG COMPARISON: Previous day LOCATION: C1 FINDINGS:Tunneled dialysis catheter terminates over high right atrium. Left central catheter terminates over SVC. PA catheter terminates over right pulmonary artery. Interval extubation. Enlarged cardiac silhouette poststernotomy. Possible tiny left pleural effusion.No pneumothorax. Patchy atelectasis and basilar interstitial opacities which mayrepresent edema, slightly increased from prior. IMPRESSION: Slight worsening following extubation. at 0808 Reported and signed by: Niall Monroy MD CC: Jalyn Najera MD; aMgaly MARTINEZ Technologist: Delmi Benitez, RT(R) Transcrpt Date/Tm/Trnsp: 07/16/2020 (08) [email or web address].[email or web address] Orig Print D/T: S: 07/16/2020 (810) [facility] NAME: NIKOLAY SOTELO [id number] PHYS: [place] [address] : 1950 AGE: 69 SEX: M LOC: Z.SI05 A PHONE #: [phone] EXAM DATE: 07/16/2020 STATUS: ADM IN FAX #: [phone] RADIOLOGY NO: PAGE 1 Signed ReportGLUCOSE BEDSIDE [id number] 07:14:00 Test Item Value Reference Range Interpretation Comments GLUCOSE BEDSIDE TESTING (test code 158 MG/DL 60-99 H = GLUBED) GLUCOSE BEDSIDE [id number] 06:47:00 Test Item Value Reference Range Interpretation Comments GLUCOSE BEDSIDE TESTING (test code 173 MG/DL 60-99 H = GLUBED) GLUCOSE BEDSIDE [id number] 05:29:00 Test Item Value Reference Range Interpretation Comments GLUCOSE BEDSIDE TESTING (test code 114 MG/DL 60-99 H = GLUBED) GLUCOSE BEDSIDE [id number] 05:18:00 Test Item Value Reference Range Interpretation Comments GLUCOSE BEDSIDE TESTING (test code 141 MG/DL 60-99 H = GLUBED) GLUCOSE BEDSIDE [id number] 05:18:00 Test Item Value Reference Range Interpretation Comments GLUCOSE BEDSIDE TESTING (test code 139 MG/DL 60-99 H = GLUBED) GLUCOSE BEDSIDE [id number] 05:18:00 Test Item Value Reference Range Interpretation Comments GLUCOSE BEDSIDE TESTING (test code 160 MG/DL 60-99 H = GLUBED) BASIC METABOLIC [id number] 04:32:00 Test Item Value Reference Range Interpretation Comments SODIUM (test code = 140 MMOL/L 137-145 N NA) POTASSIUM (test code = 5.4 MMOL/L 3.5-5.1 H K) CHLORIDE (test code = 107 MMOL/L 98-107 N CL) CARBON DIOXIDE (test 23 MMOL/L 22-30 N code = CO2) ANION GAP (test code = 15 MMOL/L 14-24 N GAP) GLUCOSE (test code = 133 MG/DL 74-106 H GLU) BLOOD UREA NITROGEN 31 MG/DL 9-20 H (test code = BUN) GLOMERULAR FILTRATION 20 Report ing units: RATE (test code = GFR) ml/mi n/1.73 m2 (Modified MDRD Formula)Referen ce Range: > or = 6 0 ml/min/1.73 m2 CREATININE (test code 3.10 MG/DL 0.66-1.25 H = CREAT) CALCIUM (test code = 8.2 MG/DL 8.4-10.2 L CA) [id number] 04:32:00 Test Item Value Reference Range Interpretation Comments MAGNESIUM (test code = MAG) 3.0 MG/DL 1.6-2.3 H CBC W/AUTO [id number] 04:13:00 Test Item Value Reference Range Interpretation Comments WHITE BLOOD CELL (test code = 11.3 K/MM3 3.8-9.8 H WBC) RED BLOOD CELL (test code = 2.85 M/MM3 3.95-5.67 L RBC) HEMOGLOBIN (test code = HGB) 8.4 G/DL 12.4-16.7 L HEMATOCRIT (test code = HCT) 26.1 % 35.9-49.5 L MEAN CELL VOLUME (test code = 92 fL 81.7-96.1 N MCV) MEAN CELL HGB (test code = MCH) 29.5 pg 27.6-33.2 N MEAN CELL HGB CONCETRATION 32.2 % 32.9-35.5 L (test code = MCHC) RED CELL DISTRIBUTION WIDTH 15.8 % 12.1-15.2 H (test code = RDW) PLATELET COUNT (test code = 195 K/MM3 129-368 N PLT) MEAN PLATELET VOLUME (test code 10.5 fl 7.4-10.4 H = MPV) NEUTROPHIL % (test code = NT%) 88.9 % 43-75 H IMMATURE GRANULOCYTE % (test 0.5 % 0.0-2.0 N code = IG%) LYMPHOCYTE % (test code = LY%) 2.4 % 14-44 L MONOCYTE % (test code = MO%) 8.1 % 4-13 N EOSINOPHIL % (test code = EO%) 0.0 % 0-6 N BASOPHIL % (test code = BA%) 0.1 % 0-2 N NUCLEATED RBC % (test code = 0.0 % 0-1.0 N NRBC%) NEUTROPHIL # (test code = NT#) 10.05 K/mm3 2.0-7.6 H IMMATURE GRANULOCYTE # (test 0.06 x10 3/uL 0-0.03 H code = IG#) LYMPHOCYTE # (test code = LY#) 0.27 K/mm3 1.0-3.8 L MONOCYTE # (test code = MO#) 0.91 K/mm3 0.1-0.8 H EOSINOPHIL # (test code = EO#) 0.00 K/mm3 0.0-0.2 N BASOPHIL # (test code = BA#) 0.01 K/mm3 0.0-0.2 N NUCLEATED RBC # (test code = 0.00 K/mm3 0.0-0.1 N NRBC#) GLUCOSE BEDSIDE [id number] 03:57:00 Test Item Value Reference Range Interpretation Comments GLUCOSE BEDSIDE TESTING (test code 143 MG/DL 60-99 H = GLUBED) GLUCOSE BEDSIDE [id number] 01:02:00 Test Item Value Reference Range Interpretation Comments GLUCOSE BEDSIDE TESTING (test code 130 MG/DL 60-99 H = GLUBED) GLUCOSE BEDSIDE [id number] 23:53:00 Test Item Value Reference Range Interpretation Comments GLUCOSE BEDSIDE TESTING (test code 151 MG/DL 60-99 H = GLUBED) GLUCOSE BEDSIDE [id number] 23:06:00 Test Item Value Reference Range Interpretation Comments GLUCOSE BEDSIDE TESTING (test code 143 MG/DL 60-99 H = GLUBED) GLUCOSE BEDSIDE [id number] 22:08:00 Test Item Value Reference Range Interpretation Comments GLUCOSE BEDSIDE TESTING (test code 145 MG/DL 60-99 H = GLUBED) GLUCOSE BEDSIDE [id number] 21:05:00 Test Item Value Reference Range Interpretation Comments GLUCOSE BEDSIDE TESTING (test code 137 MG/DL 60-99 H = GLUBED) GLUCOSE BEDSIDE [id number] 20:10:00 Test Item Value Reference Range Interpretation Comments GLUCOSE BEDSIDE TESTING (test code 146 MG/DL 60-99 H = GLUBED) BASIC METABOLIC [id number] 19:22:00 Test Item Value Reference Range Interpretation Comments SODIUM (test code = 142 MMOL/L 137-145 N NA) POTASSIUM (test code = 4.8 MMOL/L 3.5-5.1 N K) CHLORIDE (test code = 110 MMOL/L 98-107 H CL) CARBON DIOXIDE (test 20 MMOL/L 22-30 L code = CO2) ANION GAP (test code = 17 MMOL/L 14-24 N GAP) GLUCOSE (test code = 144 MG/DL 74-106 H GLU) BLOOD UREA NITROGEN 26 MG/DL 9-20 H (test code = BUN) GLOMERULAR FILTRATION 23 Report ing units: RATE (test code = GFR) ml/mi n/1.73 m2 (Modified MDRD Formula)Referen ce Range: > or = 6 0 ml/min/1.73 m2 CREATININE (test code 2.70 MG/DL 0.66-1.25 H = CREAT) CALCIUM (test code = 8.7 MG/DL 8.4-10.2 N CA) UNABLE TO DRAW BLOOD, REASON: CBNNOTIFIED PATIENT CARE STAFF: [facility] 07/15/20 AT 1712 BY Seema Vieira [id number] 19:22:00 Test Item Value Reference Range Interpretation Comments MAGNESIUM (test code = MAG) 3.2 MG/DL 1.6-2.3 H UNABLE TO DRAW BLOOD, REASON: CBNNOTIFIED PATIENT CARE STAFF: [facility] 07/15/20 AT 1712 BY Seema Vieira AnPROTHROMBIN [id number] 19:17:00 Test Item Value Reference Range Interpretation Comments PROTHROMBIN TIME PATIENT 13.4 9.5-12.7 H (test code = PTP) INTERNATIONAL NORMAL RATIO 1.2 0.86-1.14 H T he INR is to be used (test code = INR) only for m onitoring oral anticoagulantth erapy. INDICATION INR VALUE ------- ------- -----1. Prophylaxis, d eep venous thrombos is, including high risk surgery. 2.0 - 3.0 2. Prophylaxis, de ep venous thrombos is, hip surgery, tr eatment for deep venous thrombosis or pulmonary preve ntion of systemic embolism in pat ients with valvula r heart disease, atrial fibrillation, tissue heart va lve, or acute myocardia l infarction. 2.0 - 3.0 3. Mechanical pros thesis heart valves, recurrent syste bonny embolism. 3.0 - 4.5 UNABLE TO DRAW BLOOD, REASON: CBNNOTIFIED PATIENT CARE STAFF: [facility] 07/15/20 AT 1712 BY Seema Vieira AnPTT [id number] 19:17:00 Test Item Value Reference Range Interpretation Comments PTT ACTIVATED (test code = APTT) 33.0 SECONDS 25.1-36.5 N UNABLE TO DRAW BLOOD, REASON: CBNNOTIFIED PATIENT CARE STAFF: [facility] 07/15/20 AT 1712 BY Seema Vieira AnGLUCOSE BEDSIDE [id number] 19:12:00 Test Item Value Reference Range Interpretation Comments GLUCOSE BEDSIDE TESTING (test code 164 MG/DL 60-99 H = GLUBED) CBC W/AUTO [id number] 19:11:00 Test Item Value Reference Range Interpretation Comments WHITE BLOOD CELL (test code = 8.8 K/MM3 3.8-9.8 N WBC) RED BLOOD CELL (test code = 3.15 M/MM3 3.95-5.67 L RBC) HEMOGLOBIN (test code = HGB) 9.3 G/DL 12.4-16.7 L HEMATOCRIT (test code = HCT) 27.4 % 35.9-49.5 L MEAN CELL VOLUME (test code = 87 fL 81.7-96.1 N MCV) MEAN CELL HGB (test code = MCH) 29.5 pg 27.6-33.2 N MEAN CELL HGB CONCETRATION 33.9 % 32.9-35.5 N (test code = MCHC) RED CELL DISTRIBUTION WIDTH 14.9 % 12.1-15.2 N (test code = RDW) PLATELET COUNT (test code = 171 K/MM3 129-368 PLT) MEAN PLATELET VOLUME (test code 10.7 fl 7.4-10.4 H = MPV) NEUTROPHIL % (test code = NT%) 88.5 % 43-75 H IMMATURE GRANULOCYTE % (test 0.7 % 0.0-2.0 N code = IG%) LYMPHOCYTE % (test code = LY%) 4.8 % 14-44 L MONOCYTE % (test code = MO%) 5.7 % 4-13 N EOSINOPHIL % (test code = EO%) 0.1 % 0-6 N BASOPHIL % (test code = BA%) 0.2 % 0-2 N NUCLEATED RBC % (test code = 0.0 % 0-1.0 N NRBC%) NEUTROPHIL # (test code = NT#) 7.81 K/mm3 2.0-7.6 H IMMATURE GRANULOCYTE # (test 0.06 x10 3/uL 0-0.03 H code = IG#) LYMPHOCYTE # (test code = LY#) 0.42 K/mm3 1.0-3.8 L MONOCYTE # (test code = MO#) 0.50 K/mm3 0.1-0.8 N EOSINOPHIL # (test code = EO#) 0.01 K/mm3 0.0-0.2 N BASOPHIL # (test code = BA#) 0.02 K/mm3 0.0-0.2 N NUCLEATED RBC # (test code = 0.00 K/mm3 0.0-0.1 N NRBC#) UNABLE TO DRAW BLOOD, REASON: CBNNOTIFIED PATIENT CARE STAFF: [facility] 07/15/20 AT 1712 BY Seema Vieira AnGLUCOSE BEDSIDE [id number] 18:15:00 Test Item Value Reference Range Interpretation Comments GLUCOSE BEDSIDE TESTING (test code 172 MG/DL 60-99 H = GLUBED) GLUCOSE BEDSIDE [id number] 17:31:00 Test Item Value Reference Range Interpretation Comments GLUCOSE BEDSIDE TESTING (test code 168 MG/DL 60-99 H = GLUBED) [id number] 16:23:00 Test Item Value Reference Range Interpretation Comments PHOSPHOROUS (test code = PHOS) 3.2 MG/DL 2.5-4.5 N Comments to [employer]: ADD TO BLOOD DRAW DONE AT 1505.Is this a LINE draw? NComments to Marine Insulator: ADD TO BLOOD DRAW DONE AT [id number] 16:23:00 Test Item Value Reference Range Interpretation Comments MAGNESIUM (test code = MAG) 3.7 MG/DL 1.6-2.3 H Comments to [employer] Insulator: ADD TO BLOOD DRAW DONE AT 1505.Is this a LINE draw? NComments to Marine Insulator: ADD TO BLOOD DRAW DONE AT 1505- XR CHEST [id number] 16:16:00[facility] : 1950 Sex: M Patient Name: NIKOLAY SOTELO Unit No: [id number] EXAMS: CPT CODE: [id number] XR CHEST [id number] HISTORY: Status post CABG Location code: B2 FIND INGS: Frontal view of the chest demonstrates normal cardiomediastinal silhouette. The trachea is midline. Central venous congestion with mild interstitial coarsening/edema. There is no effusion or pneumothorax. The bones are intact. Median sternotomy wires noted. ET tube, NG tube to and several right IJ and left catheters are stable. IMPRES DANIELLE: 1. Central venous congestion with mild perihilar interstitial edema. 2. Support lines and tubes are in position at 1616 Reported and signed by: Angus Mathias M.D. CC: Jalyn Najera MD; Magaly MARTINEZ Technologist: Elio Vásquez (RT) (R) Transcrpt Date/Tm/Trnsp: 07/15/2020 (1616) [id number].[email or web address] Orig Print D/T: S: 07/15/2020 (1619) [facility] NAME: NIKOLAY SOTELO [id number] [address] PHYS: [place] [address] : 1950 AGE: 69 SEX: M LOC: Z.SI05 A PHONE #: [phone] EXAM DATE: 07/15/2020 STATUS: ADM IN FAX #: [phone] RADIOLOGY NO: PAGE 1 Signed ReportARTERIAL BLOOD [id number] 16:01:00 Test Item Value Reference Range Interpretation Comments ARTERIAL BLOOD GAS PH 7.41 mmHg 7.35-7.45 N (test code = PHA) ARTERIAL BLOOD GAS 36.0 mmHg 35.0-45.0 N PCO2 (test code = PCO2A) ARTERIAL BLOOD GAS 378.8 mmol/L 80.0-100.0 H PO2 (test code = PO2A) BICARBONATE TOTAL 22.2 mmol/L 20.0-26.0 N HCO3 (test code = HCO3) BASE EXCESS (test -1.9 mmol/L -3.0-3.0 N code = DAMEON) ABG O2 SATURATION 99.8 % 95.0-100.0 N (test code = SATA) ABG DELIVERY (test VENT code = NAYAN) ABG VENT MODE (test A/C code = MODEA) ABG VENT RESP RATE 12.0 /MIN (test code = RRA) ABG TIDAL VOLUME 500.0 ml (test code = TVA) ABG PEEP (test code = 5.0 cmH2O PEEPA) ABG TEMPERATURE (test 37.0 C See_Comment [Auto mated message] code = TEMPA) The system [employer] generated this result transmit pal reference range : 37. The reference r radha was not used to interpret this result as normal/abnormal . ABG SITE (test code = AL SITEA) ALLENS TEST (test NA CHECK code = ALLENS) FIO2 (test code = 100 % COHBGFFIO2) PaO2/[id number] 16:01:00 Test Item Value Reference Range Interpretation Comments PaO2/FiO2 (test code = [id number]) mm/Hg ARTERIAL BLOOD [id number] 16:01:00 Test Item Value Reference Range Interpretation Comments ARTERIAL BLOOD GAS PH 7.41 mmHg 7.35-7.45 N (test code = PHA) ARTERIAL BLOOD GAS 36.0 mmHg 35.0-45.0 N PCO2 (test code = PCO2A) ARTERIAL BLOOD GAS 378.8 mmol/L 80.0-100.0 H PO2 (test code = PO2A) BICARBONATE TOTAL 22.2 mmol/L 20.0-26.0 N HCO3 (test code = HCO3) BASE EXCESS (test -1.9 mmol/L -3.0-3.0 N code = DAMEON) ABG O2 SATURATION 99.8 % 95.0-100.0 N (test code = SATA) ABG DELIVERY (test VENT code = NAYAN) ABG VENT MODE (test A/C code = MODEA) ABG VENT RESP RATE 12.0 /MIN (test code = RRA) ABG TIDAL VOLUME 500.0 ml (test code = TVA) ABG PEEP (test code = 5.0 cmH2O PEEPA) ABG TEMPERATURE (test 37.0 C See_Comment [Auto mated message] code = TEMPA) The system [employer] generated this result transmit pal reference range : 37. The reference r radha was not used to interpret this result as normal/abnormal . ABG SITE (test code = AL SITEA) ALLENS TEST (test NA CHECK code = ALLENS) FIO2 (test code = 100 % COHBGFFIO2) PaO2/[id number] 16:01:00 Test Item Value Reference Range Interpretation Comments PaO2/FiO2 (test code = [id number]) 378.80 mm/Hg GLUCOSE BEDSIDE [id number] 15:53:00 Test Item Value Reference Range Interpretation Comments GLUCOSE BEDSIDE TESTING (test code 180 MG/DL 60-99 H = GLUBED) POC ARTERIAL BLOOD [id number] 15:35:00 Test Item Value Reference Range Interpretation Comments POC ARTERIAL BLOOD GAS PH 7.430 7.35-7.45 N (test code = POCPHA) POC ARTERIAL BLOOD GAS PCO2 36.5 mmHg 35.0-45.0 N (test code = [id number]) POC ARTERIAL BLOOD GAS PO2 342.6 75.0-100.0 HH (test code = TLSMP0B) POC HCO3 ARTERIAL (test 24.2 MMOL/L 20.0-26.0 N code = [id number]) POC BASE EXCESS (test code 0.1 MMOL/L -3.0-3.0 N = POCBEA) POC O2 SATURATION (test 99.9 % 92.0-98.5 H code = POCO2S) FIO2 (test code = FIO2A) 80 % 21-100 N PaO2/FiO2 (test code = 428.25 mm/Hg [id number]) SODIUM (test code = NA/ABG) 145 MMOL/L 135-141 H POTASSIUM (test code = 5.0 MMOL/L 3.7-4.7 H K/ABG) CHLORIDE (test code = 111 MEQ/L CL/ABG) POC IONIZED CALCIUM (test 1.12 MMOL/L 1.13-1.32 L code = POCCA) POC GLUCOSE (test code = 180 MG/DL 60-99 H POCGLU) POC SAMPLE SOURCE (test Arterial Descript Specimen code = POCSAMPLE) LACTIC ACID POC (test code 3.30 mmol/L 0.7-2.0 HH = LACTP) PROTHROMBIN [id number] 15:33:00 Test Item Value Reference Range Interpretation Comments PROTHROMBIN TIME PATIENT 18.5 9.5-12.7 H (test code = PTP) INTERNATIONAL NORMAL RATIO 1.7 0.86-1.14 H T he INR is to be used (test code = INR) only for m onitoring oral anticoagulantth erapy. INDICATION INR VALUE ------- ------- -----1. Prophylaxis, d eep venous thrombos is, including high risk surgery. 2.0 - 3.0 2. Prophylaxis, de ep venous thrombos is, hip surgery, tr eatment for deep venous thrombosis or pulmonary preve ntion of systemic embolism in pat ients with valvula r heart disease, atrial fibrillation, tissue heart va lve, or acute myocardia l infarction. 2.0 - 3.0 3. Mechanical pros thesis heart valves, recurrent syste bonny embolism. 3.0 - 4.5 PTT [id number] 15:33:00 Test Item Value Reference Range Interpretation Comments PTT ACTIVATED (test code = APTT) 33.4 SECONDS 25.1-36.5 N BASIC METABOLIC [id number] 15:32:00 Test Item Value Reference Range Interpretation Comments SODIUM (test code = 139 MMOL/L 137-145 N NA) POTASSIUM (test code = 5.1 MMOL/L 3.5-5.1 N K) CHLORIDE (test code = 112 MMOL/L 98-107 H CL) CARBON DIOXIDE (test 20 MMOL/L 22-30 L code = CO2) ANION GAP (test code = 12 MMOL/L 14-24 L GAP) GLUCOSE (test code = 187 MG/DL 74-106 H GLU) BLOOD UREA NITROGEN 25 MG/DL 9-20 H (test code = BUN) GLOMERULAR FILTRATION 26 Report ing units: RATE (test code = GFR) ml/mi n/1.73 m2 (Modified MDRD Formula)Referen ce Range: > or = 6 0 ml/min/1.73 m2 CREATININE (test code 2.50 MG/DL 0.66-1.25 H = CREAT) CALCIUM (test code = 7.6 MG/DL 8.4-10.2 L CA) CBC W/AUTO [id number] 15:22:00 Test Item Value Reference Range Interpretation Comments WHITE BLOOD CELL (test code = 9.1 K/MM3 3.8-9.8 N WBC) RED BLOOD CELL (test code = 3.56 M/MM3 3.95-5.67 L RBC) HEMOGLOBIN (test code = HGB) 10.5 G/DL 12.4-16.7 L HEMATOCRIT (test code = HCT) 32.2 % 35.9-49.5 L MEAN CELL VOLUME (test code = 90 fL 81.7-96.1 N MCV) MEAN CELL HGB (test code = MCH) 29.5 pg 27.6-33.2 N MEAN CELL HGB CONCETRATION 32.6 % 32.9-35.5 L (test code = MCHC) RED CELL DISTRIBUTION WIDTH 14.7 % 12.1-15.2 N (test code = RDW) PLATELET COUNT (test code = 124 K/MM3 129-368 L PLT) MEAN PLATELET VOLUME (test code 10.6 fl 7.4-10.4 H = MPV) NEUTROPHIL % (test code = NT%) 72.0 % 43-75 N IMMATURE GRANULOCYTE % (test 0.5 % 0.0-2.0 N code = IG%) LYMPHOCYTE % (test code = LY%) 21.6 % 14-44 N MONOCYTE % (test code = MO%) 4.7 % 4-13 N EOSINOPHIL % (test code = EO%) 0.5 % 0-6 N BASOPHIL % (test code = BA%) 0.7 % 0-2 N NUCLEATED RBC % (test code = 0.0 % 0-1.0 N NRBC%) NEUTROPHIL # (test code = NT#) 6.56 K/mm3 2.0-7.6 N IMMATURE GRANULOCYTE # (test 0.05 x10 3/uL 0-0.03 H code = IG#) LYMPHOCYTE # (test code = LY#) 1.97 K/mm3 1.0-3.8 N MONOCYTE # (test code = MO#) 0.43 K/mm3 0.1-0.8 N EOSINOPHIL # (test code = EO#) 0.05 K/mm3 0.0-0.2 N BASOPHIL # (test code = BA#) 0.06 K/mm3 0.0-0.2 N NUCLEATED RBC # (test code = 0.00 K/mm3 0.0-0.1 N NRBC#) POC ARTERIAL BLOOD [id number] 15:06:00 Test Item Value Reference Range Interpretation Comments POC ARTERIAL BLOOD GAS PH 7.353 7.35-7.45 N (test code = POCPHA) POC ARTERIAL BLOOD GAS PCO2 40.6 mmHg 35.0-45.0 N (test code = [id number]) POC ARTERIAL BLOOD GAS PO2 265.2 75.0-100.0 HH (test code = BJDDC2J) POC HCO3 ARTERIAL (test 22.6 MMOL/L 20.0-26.0 N code = JUXUSR2S) POC BASE EXCESS (test code -2.8 MMOL/L -3.0-3.0 N = POCBEA) POC O2 SATURATION (test 99.9 % 92.0-98.5 H code = POCO2S) FIO2 (test code = FIO2A) 80 % 21-100 PaO2/FiO2 (test code = 331.50 mm/Hg [id number]) SODIUM (test code = NA/ABG) 141 MMOL/L 135-141 N POTASSIUM (test code = 5.3 MMOL/L 3.7-4.7 H K/ABG) CHLORIDE (test code = 111 MEQ/L CL/ABG) POC IONIZED CALCIUM (test 1.21 MMOL/L 1.13-1.32 N code = POCCA) POC GLUCOSE (test code = 198 MG/DL 60-99 H POCGLU) POC SAMPLE SOURCE (test Arterial Descript Specimen code = POCSAMPLE) LACTIC ACID POC (test code 2.14 mmol/L 0.7-2.0 HH = LACTP) POC ARTERIAL BLOOD [id number] 14:28:00 Test Item Value Reference Range Interpretation Comments POC ARTERIAL BLOOD GAS PH 7.353 7.35-7.45 N (test code = POCPHA) POC ARTERIAL BLOOD GAS PCO2 45.3 mmHg 35.0-45.0 H (test code = [id number]) POC ARTERIAL BLOOD GAS PO2 375.8 75.0-100.0 HH (test code = TORLN7P) POC HCO3 ARTERIAL (test 25.2 MMOL/L 20.0-26.0 N code = [id number]) POC BASE EXCESS (test code -0.5 MMOL/L -3.0-3.0 N = POCBEA) POC O2 SATURATION (test 99.9 % 92.0-98.5 H code = POCO2S) FIO2 (test code = FIO2A) 85 % 21-100 N PaO2/FiO2 (test code = 442.11 mm/Hg [id number]) SODIUM (test code = NA/ABG) 140 MMOL/L 135-141 N POTASSIUM (test code = 5.7 MMOL/L 3.7-4.7 H K/ABG) CHLORIDE (test code = 109 MEQ/L CL/ABG) POC IONIZED CALCIUM (test 0.89 MMOL/L 1.13-1.32 L code = POCCA) POC GLUCOSE (test code = 258 MG/DL 60-99 H POCGLU) POC SAMPLE SOURCE (test Arterial Descript Specimen code = POCSAMPLE) LACTIC ACID POC (test code 1.60 mmol/L 0.7-2.0 N = LACTP) [id number] 14:17:00 Test Item Value Reference Range Interpretation Comments POTASSIUM (test code = 6.5 MMOL/L 3.5-5.1 HH DURON D TO WANDER.D& K) READBACK ON 08/28 AT 1417 BY Diamante Coles PLEASE CALL RESULTS TO PHONE #: [id number] 14:17:00 Test Item Value Reference Range Interpretation Comments GLUCOSE (test code = GLU) 142 MG/DL 74-106 H PLEASE CALL RESULTS TO PHONE #: [id number] [facility] ARTERIAL BLOOD [id number] 14:01:00 Test Item Value Reference Range Interpretation Comments POC ARTERIAL BLOOD GAS PH 7.362 7.35-7.45 N (test code = POCPHA) POC ARTERIAL BLOOD GAS PCO2 41.7 mmHg 35.0-45.0 N (test code = [id number]) POC ARTERIAL BLOOD GAS PO2 428.8 75.0-100.0 HH (test code = FEMPT8V) POC HCO3 ARTERIAL (test 23.7 MMOL/L 20.0-26.0 N code = [id number]) POC BASE EXCESS (test code -1.6 MMOL/L -3.0-3.0 N = POCBEA) POC O2 SATURATION (test 100.0 % 92.0-98.5 H code = POCO2S) FIO2 (test code = FIO2A) 85 % 21-100 PaO2/FiO2 (test code = 504.47 mm/Hg [id number]) SODIUM (test code = NA/ABG) 138 MMOL/L 135-141 N POTASSIUM (test code = 6.8 MMOL/L 3.7-4.7 HH K/ABG) CHLORIDE (test code = 108 MEQ/L CL/ABG) POC IONIZED CALCIUM (test 0.95 MMOL/L 1.13-1.32 L code = POCCA) POC GLUCOSE (test code = 147 MG/DL 60-99 H POCGLU) POC SAMPLE SOURCE (test Arterial Descript Specimen code = POCSAMPLE) LACTIC ACID POC (test code 1.62 mmol/L 0.7-2.0 N = LACTP) HGB [id number] 14:00:00 Test Item Value Reference Range Interpretation Comments HEMOGLOBIN (test code = HGB) 7.4 G/DL 12.4-16.7 L HEMATOCRIT (test code = HCT) 23.0 % 35.9-49.5 L PLEASE CALL RESULTS TO PHONE #: [id number] 13:42:00 Test Item Value Reference Range Interpretation Comments POTASSIUM (test code = K) 5.6 MMOL/L 3.5-5.1 H PLEASE CALL RESULTS TO PHONE #: [id number] 13:42:00 Test Item Value Reference Range Interpretation Comments GLUCOSE (test code = GLU) 147 MG/DL 74-106 H PLEASE CALL RESULTS TO PHONE #: [id number] STATHGB [id number] 13:08:00 Test Item Value Reference Range Interpretation Comments HEMOGLOBIN (test code = HGB) 7.5 G/DL 12.4-16.7 L HEMATOCRIT (test code = HCT) 23.7 % 35.9-49.5 L PLEASE CALL RESULTS TO PHONE #: [id number] [facility] ART[facility]LO[facility] [id number] 12:51:00 Test Item Value Reference Range Interpretation Comments POC ARTERIAL BLOOD GAS PH 7.431 7.35-7.45 N (test code = POCPHA) POC ARTERIAL BLOOD GAS PCO2 32.0 mmHg 35.0-45.0 L (test code = XLQUKX0U) POC ARTERIAL BLOOD GAS PO2 534.8 75.0-100.0 HH (test code = LRFGS5Z) POC HCO3 ARTERIAL (test 21.3 MMOL/L 20.0-26.0 N code = [id number]) POC BASE EXCESS (test code -2.7 MMOL/L -3.0-3.0 N = POCBEA) POC O2 SATURATION (test 100.0 % 92.0-98.5 H code = POCO2S) FIO2 (test code = FIO2A) 80 % 21-100 N PaO2/FiO2 (test code = 668.50 mm/Hg [id number]) SODIUM (test code = NA/ABG) 134 MMOL/L 135-141 L POTASSIUM (test code = 6.0 MMOL/L 3.7-4.7 HH K/ABG) CHLORIDE (test code = 101 MEQ/L CL/ABG) POC IONIZED CALCIUM (test 0.93 MMOL/L 1.13-1.32 L code = POCCA) POC GLUCOSE (test code = 143 MG/DL 60-99 H POCGLU) POC SAMPLE SOURCE (test Arterial Descript Specimen code = POCSAMPLE) LACTIC ACID POC (test code 2.04 mmol/L 0.7-2.0 HH = LACTP) POC ARTERIAL BLOOD [id number] 11:54:00 Test Item Value Reference Range Interpretation Comments POC ARTERIAL BLOOD GAS PH 7.399 7.35-7.45 N (test code = POCPHA) POC ARTERIAL BLOOD GAS PCO2 38.6 mmHg 35.0-45.0 N (test code = QUAUAF0U) POC ARTERIAL BLOOD GAS PO2 380.3 75.0-100.0 HH (test code = [id number]) POC HCO3 ARTERIAL (test 23.9 MMOL/L 20.0-26.0 N code = [id number]) POC BASE EXCESS (test code -0.8 MMOL/L -3.0-3.0 N = POCBEA) POC O2 SATURATION (test 100.0 % 92.0-98.5 H code = POCO2S) FIO2 (test code = FIO2A) 80 % 21-100 PaO2/FiO2 (test code = 475.37 mm/Hg [id number]) SODIUM (test code = NA/ABG) 139 MMOL/L 135-141 N POTASSIUM (test code = 5.6 MMOL/L 3.7-4.7 H K/ABG) CHLORIDE (test code = 104 MEQ/L CL/ABG) POC IONIZED CALCIUM (test 1.05 MMOL/L 1.13-1.32 L code = POCCA) POC GLUCOSE (test code = 177 MG/DL 60-99 H POCGLU) POC SAMPLE SOURCE (test Arterial Descript Specimen code = POCSAMPLE) LACTIC ACID POC (test code 2.40 mmol/L 0.7-2.0 HH = LACTP) BASIC METABOLIC [id number] 10:44:00 Test Item Value Reference Range Interpretation Comments SODIUM (test code = 137 MMOL/L 137-145 N NA) POTASSIUM (test code = 5.0 MMOL/L 3.5-5.1 N K) CHLORIDE (test code = 102 MMOL/L 98-107 N CL) CARBON DIOXIDE (test 23 MMOL/L 22-30 N code = CO2) ANION GAP (test code = 17 MMOL/L 14-24 N GAP) GLUCOSE (test code = 156 MG/DL 74-106 H GLU) BLOOD UREA NITROGEN 31 MG/DL 9-20 H (test code = BUN) GLOMERULAR FILTRATION 20 Report ing units: RATE (test code = GFR) ml/mi n/1.73 m2 (Modified MDRD Formula)Referen ce Range: > or = 6 0 ml/min/1.73 m2 CREATININE (test code 3.10 MG/DL 0.66-1.25 H = CREAT) CALCIUM (test code = 8.2 MG/DL 8.4-10.2 L CA) PLEASE CALL RESULTS TO PHONE #: [phone] [id number] 10:25:00 Test Item Value Reference Range Interpretation Comments WHITE BLOOD CELL (test code = 4.5 K/MM3 3.8-9.8 N WBC) RED BLOOD CELL (test code = 3.42 M/MM3 3.95-5.67 L RBC) HEMOGLOBIN (test code = HGB) 9.9 G/DL 12.4-16.7 L HEMATOCRIT (test code = HCT) 30.9 % 35.9-49.5 L MEAN CELL VOLUME (test code = 90 fL 81.7-96.1 N MCV) MEAN CELL HGB (test code = MCH) 28.9 pg 27.6-33.2 N MEAN CELL HGB CONCETRATION 32.0 % 32.9-35.5 L (test code = MCHC) RED CELL DISTRIBUTION WIDTH 14.9 % 12.1-15.2 N (test code = RDW) PLATELET COUNT (test code = 202 K/MM3 129-368 N PLT) MEAN PLATELET VOLUME (test code 10.5 fl 7.4-10.4 H = MPV) NEUTROPHIL % (test code = NT%) 61.3 % 43-75 N IMMATURE GRANULOCYTE % (test 0.7 % 0.0-2.0 N code = IG%) LYMPHOCYTE % (test code = LY%) 25.3 % 14-44 N MONOCYTE % (test code = MO%) 10.0 % 4-13 N EOSINOPHIL % (test code = EO%) 1.6 % 0-6 N BASOPHIL % (test code = BA%) 1.1 % 0-2 N NUCLEATED RBC % (test code = 0.0 % 0-1.0 N NRBC%) NEUTROPHIL # (test code = NT#) 2.76 K/mm3 2.0-7.6 N IMMATURE GRANULOCYTE # (test 0.03 x10 3/uL 0-0.03 N code = IG#) LYMPHOCYTE # (test code = LY#) 1.14 K/mm3 1.0-3.8 N MONOCYTE # (test code = MO#) 0.45 K/mm3 0.1-0.8 N EOSINOPHIL # (test code = EO#) 0.07 K/mm3 0.0-0.2 N BASOPHIL # (test code = BA#) 0.05 K/mm3 0.0-0.2 N NUCLEATED RBC # (test code = 0.00 K/mm3 0.0-0.1 N NRBC#) PLEASE CALL RESULTS TO PHONE #: [phone] [facility] ARTERIAL BLOOD [id number] 10:15:00 Test Item Value Reference Range Interpretation Comments POC ARTERIAL BLOOD GAS PH 7.396 7.35-7.45 N (test code = POCPHA) POC ARTERIAL BLOOD GAS PCO2 40.8 mmHg 35.0-45.0 N (test code = [id number]) POC ARTERIAL BLOOD GAS PO2 534.8 75.0-100.0 HH (test code = QEYHL5S) POC HCO3 ARTERIAL (test 25.0 MMOL/L 20.0-26.0 N code = EMDGOK8M) POC BASE EXCESS (test code 0.1 MMOL/L -3.0-3.0 N = POCBEA) POC O2 SATURATION (test 100.0 % 92.0-98.5 H code = POCO2S) FIO2 (test code = FIO2A) 100 % 21-100 N PaO2/FiO2 (test code = 534.80 mm/Hg [id number]) SODIUM (test code = NA/ABG) 139 MMOL/L 135-141 N POTASSIUM (test code = 5.0 MMOL/L 3.7-4.7 H K/ABG) CHLORIDE (test code = 102 MEQ/L CL/ABG) POC IONIZED CALCIUM (test 1.10 MMOL/L 1.13-1.32 L code = POCCA) POC GLUCOSE (test code = 158 MG/DL 60-99 H POCGLU) POC SAMPLE SOURCE (test Arterial Descript Specimen code = POCSAMPLE) LACTIC ACID POC (test code 2.75 mmol/L 0.7-2.0 HH = LACTP) GLUCOSE BEDSIDE [id number] 08:36:00 Test Item Value Reference Range Interpretation Comments GLUCOSE BEDSIDE TESTING (test code 156 MG/DL 60-99 H = GLUBED) POC ARTERIAL BLOOD [id number] 08:35:00 Test Item Value Reference Range Interpretation Comments POC ARTERIAL BLOOD GAS PH 7.400 7.35-7.45 N (test code = POCPHA) POC ARTERIAL BLOOD GAS PCO2 38.3 mmHg 35.0-45.0 N (test code = YSRADA0U) POC ARTERIAL BLOOD GAS PO2 66.1 75.0-100.0 L (test code = WOBMS9A) POC HCO3 ARTERIAL (test 23.7 MMOL/L 20.0-26.0 N code = [id number]) POC BASE EXCESS (test code -0.9 MMOL/L -3.0-3.0 N = POCBEA) POC O2 SATURATION (test 92.8 % 92.0-98.5 N code = POCO2S) PaO2/FiO2 (test code = mm/Hg [id number]) POC SAMPLE SOURCE (test Arterial Descript Specimen code = POCSAMPLE) BASIC METABOLIC [id number] 06:20:00 Test Item Value Reference Range Interpretation Comments SODIUM (test code = 135 MMOL/L 137-145 L NA) POTASSIUM (test code = 4.7 MMOL/L 3.5-5.1 N K) CHLORIDE (test code = 100 MMOL/L 98-107 N CL) CARBON DIOXIDE (test 24 MMOL/L 22-30 N code = CO2) ANION GAP (test code = 16 MMOL/L 14-24 N GAP) GLUCOSE (test code = 172 MG/DL 74-106 H GLU) BLOOD UREA NITROGEN 30 MG/DL 9-20 H (test code = BUN) GLOMERULAR FILTRATION 19 Report ing units: RATE (test code = GFR) ml/mi n/1.73 m2 (Modified MDRD Formula)Referen ce Range: > or = 6 0 ml/min/1.73 m2 CREATININE (test code 3.30 MG/DL 0.66-1.25 H = CREAT) CALCIUM (test code = 8.5 MG/DL 8.4-10.2 N CA) [id number] 06:20:00 Test Item Value Reference Range Interpretation Comments MAGNESIUM (test code = MAG) 1.9 MG/DL 1.6-2.3 N CBC W/AUTO [id number] 06:19:00 Test Item Value Reference Range Interpretation Comments WHITE BLOOD CELL (test code = 5.2 K/MM3 3.8-9.8 N WBC) RED BLOOD CELL (test code = 3.78 M/MM3 3.95-5.67 L RBC) HEMOGLOBIN (test code = HGB) 11.0 G/DL 12.4-16.7 L HEMATOCRIT (test code = HCT) 34.7 % 35.9-49.5 L MEAN CELL VOLUME (test code = 92 fL 81.7-96.1 N MCV) MEAN CELL HGB (test code = MCH) 29.1 pg 27.6-33.2 N MEAN CELL HGB CONCETRATION 31.7 % 32.9-35.5 L (test code = MCHC) RED CELL DISTRIBUTION WIDTH 14.9 % 12.1-15.2 N (test code = RDW) PLATELET COUNT (test code = 203 K/MM3 129-368 N PLT) MEAN PLATELET VOLUME (test code 10.5 fl 7.4-10.4 H = MPV) NEUTROPHIL % (test code = NT%) 60.0 % 43-75 N IMMATURE GRANULOCYTE % (test 0.8 % 0.0-2.0 N code = IG%) LYMPHOCYTE % (test code = LY%) 22.8 % 14-44 N MONOCYTE % (test code = MO%) 12.9 % 4-13 N EOSINOPHIL % (test code = EO%) 2.1 % 0-6 N BASOPHIL % (test code = BA%) 1.4 % 0-2 N NUCLEATED RBC % (test code = 0.0 % 0-1.0 N NRBC%) NEUTROPHIL # (test code = NT#) 3.11 K/mm3 2.0-7.6 N IMMATURE GRANULOCYTE # (test 0.04 x10 3/uL 0-0.03 H code = IG#) LYMPHOCYTE # (test code = LY#) 1.18 K/mm3 1.0-3.8 N MONOCYTE # (test code = MO#) 0.67 K/mm3 0.1-0.8 N EOSINOPHIL # (test code = EO#) 0.11 K/mm3 0.0-0.2 N BASOPHIL # (test code = BA#) 0.07 K/mm3 0.0-0.2 N NUCLEATED RBC # (test code = 0.00 K/mm3 0.0-0.1 N NRBC#) GLUCOSE BEDSIDE [id number] 05:42:00 Test Item Value Reference Range Interpretation Comments GLUCOSE BEDSIDE TESTING (test code 153 MG/DL 60-99 H = GLUBED) HIV 12 AB [id number] 20:57:00 Test Item Value Reference Range Interpretation Comments HIV 1 2 COMBO AG/AB SCREEN AB/AG NON REACTIVE NONREACTIVE (test code = [id number]) GLUCOSE BEDSIDE [id number] 20:26:00 Test Item Value Reference Range Interpretation Comments GLUCOSE BEDSIDE TESTING (test code 223 MG/DL 60-99 H = GLUBED) PROTHROMBIN [id number] 19:05:00 Test Item Value Reference Range Interpretation Comments PROTHROMBIN TIME PATIENT 13.9 9.5-12.7 H (test code = PTP) INTERNATIONAL NORMAL RATIO 1.3 0.86-1.14 H T he INR is to be used (test code = INR) only for m onitoring oral anticoagulantth erapy. INDICATION INR VALUE ------- ------- -----1. Prophylaxis, d eep venous thrombos is, including high risk surgery. 2.0 - 3.0 2. Prophylaxis, de ep venous thrombos is, hip surgery, tr eatment for deep venous thrombosis or pulmonary preve ntion of systemic embolism in pat ients with valvula r heart disease, atrial fibrillation, tissue heart va lve, or acute myocardia l infarction. 2.0 - 3.0 3. Mechanical pros thesis heart valves, recurrent syste bonny embolism. 3.0 - 4.5 PTT [id number] 19:05:00 Test Item Value Reference Range Interpretation Comments PTT ACTIVATED (test code = APTT) 40.1 SECONDS 25.1-36.5 H PLT RESPONSE TO [id number] 19:05:00 Test Item Value Reference Range Interpretation Comments PLT RESPONSE TO 363 PRU 194-418 N P2Y12 Result s PLAVIX (test code = Interpre tation: Test PLAVRES) results are in P2Y12 Reaction Units (PRU). Pre-Drug Refe rence Range is 194-41 8. Pre-drug platel et function estima yuri the total possible platelet aggregation independent of P2Y12 inhibitor drugs . Values <194 cou ld be due to low HCT, low platelet count, or p resence of IIb/IIIa inhibi tors. Post-Drug Resu lts: Lower PRU levels are associated with expec pal antiplatelet ef fect. Values may be b elow the stated refe rence range. Studies show that patients wi th <230 PRU had fewer a dverse events. COMPREHENSIVE METABOLIC [id number] 18:01:00 Test Item Value Reference Range Interpretation Comments SODIUM (test code 136 MMOL/L 137-145 L = NA) POTASSIUM (test 4.5 MMOL/L 3.5-5.1 N code = K) CHLORIDE (test 100 MMOL/L 98-107 N code = CL) CARBON DIOXIDE 25 MMOL/L 22-30 N (test code = CO2) ANION GAP (test 16 MMOL/L 14-24 N code = GAP) GLUCOSE (test 152 MG/DL 74-106 H code = GLU) BLOOD UREA 21 MG/DL 9-20 H NITROGEN (test code = BUN) GLOMERULAR 24 Reporting units : FILTRATION RATE ml/min/1.73 m2 (Modified (test code = GFR) MDRD Formu la)Reference Range: > or = 6 0 ml/min/1.73 m2 CREATININE (test 2.60 MG/DL 0.66-1.25 H code = CREAT) TOTAL PROTEIN 7.8 G/DL 6.2-7.6 H [facility] Clinical Diagnostic (test code = has made us zayra re of PROT) newinformation regarding the potential i nterference ofEltrombopag (a bone marrow stimulan t used to treatthrombocyt onmenia and aplastic anemia ) with specific assays on the Vitros 5600 of which Total Protein is one of thoseassays per formed in our lab.Interfe rence testing perform ed at [facility] determined that Eltrombopag does interfere with Vitros Total Protein asfollowsEltrom bopag Interference fo r Vitros Product Total Protein:======= Eltrombopag Max Observed A vg. BiasConcentrati on Concentration Concentration== ==== 2.5 mg/dl 6.0 g/dl +0.41 +0.34 3.5 mg/dl 6.0 g/dl +0.50 +0.45 5 mg/dl 6.0 g/dl +0.73 +0.65 2.5 mg/dl 8.0 g/dl +0.44 +0.41 3.5 mg/dl 8.0 g/dl +0.55 +0.52 5 mg/dl 8.0 g/dl +0.86 +0.77 ALBUMIN (test 4.1 G/DL 3.5-5.0 N code = ALB) CALCIUM (test 8.8 MG/DL 8.4-10.2 N code = CA) BILIRUBIN TOTAL 0.4 MG/DL 0.2-1.3 N Eltrombopag Interference (test code = for Vitros Prod uct TBil, BILT) BuBc: Assa y Eltrombopag Analyte/ Max Observed Avg. Bias Concentrati on Concentration Concentration== ====TBil 7mg/dl T Raj/ 1.2mg/dl +0.23 mg.dl +0.20mg/dlBuBc 3.5mg/dl Bu/0.8mg/dl +0.25mg/dl +0 .24mg/dlBuBc 7 mg/dl Bu/14.2mg/dl +0.38mg/dl +0.25mg/dlBuBc 5mg/dl Bc/0mg/dl +0.25mg/dl +0 .15mg/dlBuBc 3.5mg/dl Bc/2.8mg/dl +0.25mg/dl +0.23mg/dl SGOT/AST (test 32 UNITS/L 17-59 N code = AST) SGPT/ALT (test 23 UNITS/L <50 code = ALT) ALKALINE 110 UNITS/L 38-126 N PHOSPHATASE (test code = ALKP) Specimen comments: if not done in the last 72 hoursGLYCOSYLATED HEMOGLOBIN [id number] 17:59:00 Test Item Value Reference Range Interpretation Comments GLYCOSYLATED 7.6 % 4.8-5.9 H Any condition t hat HEMOGLOBIN (HA1C) shortens e rythocyte (test code = survival or dec reasesmean GLYHGB) erythrocyte age (e.g., recovery from a cute blood loss,hemolytic anemia) will falsely lo wer HGBA1c resultsregardle ss of the method used. H GBA1c results from pa tientswith HbSS, HbCC, and HbSc must be interpreted with cautiongiven th e pathological pr ocesses, including anemia,increase d red cell turnover, trans fusion requirements, thatadversely i mpact HGBA1c as a mar ker of long-term glycemiccontrol . Alternative for ms of testing such as fructosaminesho uld be considered for these patients. MEAN BLOOD GLUCOSE 171 MG/DL 70-110 H (test code = MBG) PROTHROMBIN [id number] 17:58:00 Test Item Value Reference Range Interpretation Comments PROTHROMBIN TIME PATIENT 13.9 9.5-12.7 H (test code = PTP) INTERNATIONAL NORMAL RATIO 1.3 0.86-1.14 H T he INR is to be used (test code = INR) only for m onitoring oral anticoagulantth erapy. INDICATION INR VALUE ------- ------- -----1. Prophylaxis, d eep venous thrombos is, including high risk surgery. 2.0 - 3.0 2. Prophylaxis, de ep venous thrombos is, hip surgery, tr eatment for deep venous thrombosis or pulmonary preve ntion of systemic embolism in pat ients with valvula r heart disease, atrial fibrillation, tissue heart va lve, or acute myocardia l infarction. 2.0 - 3.0 3. Mechanical pros thesis heart valves, recurrent syste bonny embolism. 3.0 - 4.5 PTT [id number] 17:58:00 Test Item Value Reference Range Interpretation Comments PTT ACTIVATED (test code = APTT) 40.1 SECONDS 25.1-36.5 H PLT RESPONSE TO [id number] 17:58:00 Test Item Value Reference Range Interpretation Comments PLT RESPONSE TO PLAVIX (test code = PRU 194-418 PLAVRES) COVID 19 Asymptomatic IH [id number] 17:11:00 Test Item Value Reference Range Interpretation Comments COVID 19 NEGATIVE Negative "Negative resul ts from Asymptomatic IH AG patients with symptom (test code = onset beyondfiv e days, COVNONPUIAG) should be robbie pal as presumptive, andconfirmation with a molecular assay , if necessary forpa tient management may be performed. Nega tive results do notr ule out COVID-19 and sh ould not be used as the sole basisfor treatm ent or patient managem ent decisions, includinginfect ion control decisio ns. Negative result s should beconsidered in the context of a pa tients recent exposure s,history, and the presenc e of clinical signs and symptomsconsist ent with COVID-19.This t est detects both vi able andnon-viable S ARS-CoV and SARS CoV-2. Test performance dep endson the amount of virus (antigen) in the sample." Spec Comments: PRE-OP; PRIOR WILL OVER WEEKEND.GLUCOSE BEDSIDE TESTING 2020-07-14 16:53:00 Test Item Value Reference Range Interpretation Comments GLUCOSE BEDSIDE TESTING (test code 142 MG/DL 60-99 H = GLUBED) - XR CHEST [id number] 15:53:00 [facility] 1950 Sex: M Patient Name: NIKOLAY SOTELO Unit No: [id number] EXAMS: CPT CODE: [id number] XR CHEST [id number] LOCATION: T18 EXAM: CHEST 1 VIEW INDICATION: , C ardiac/Heart Surgery COMPARISON: Chest x-ray July 04, 2020 TECHNIQUE: AP chest radiograph. FINDINGS: Right IJ dialysis catheter is unchanged. Lungs are clear bilaterally without effusion. Heart is normal in size. Bones and peripheral soft tissues are unremarkable. IMPRESSION: Lungs are clear. No acute abnormality. Electro nically Signed by Polly Baer MD on 07/14/2020 at 1553 Reported and signed by: Polly Baer MD CC: Jalyn Najera MD; Magaly MARTINEZ Technologist: Fer Hollis (RT) Transcrpt Date/Tm/Trnsp: 07/14/2020 ([id number]) t.[id number] Orig Print D/T: S: 07/14/2020 ([id number]) [facility] NAME: NIKOLAY SOTELO [address] PHYS: [place] [address] : 1950 AGE: 69 SEX: M LOC: [id number] A PHONE #:[phone] EXAM DATE: 07/14/2020 STATUS: ADM IN FAX #: [phone] RADIOLOGY NO: PAGE 1 Signed ReportGLUCOSE BEDSIDE [id number] 14:09:00 Test Item Value Reference Range Interpretation Comments GLUCOSE BEDSIDE TESTING (test code 231 MG/DL 60-99 H = GLUBED) BASIC METABOLIC [id number] 07:51:00 Test Item Value Reference Range Interpretation Comments SODIUM (test code = 139 MMOL/L 137-145 N NA) POTASSIUM (test code = 5.1 MMOL/L 3.5-5.1 N K) CHLORIDE (test code = 103 MMOL/L 98-107 N CL) CARBON DIOXIDE (test 24 MMOL/L 22-30 N code = CO2) ANION GAP (test code = 17 MMOL/L 14-24 N GAP) GLUCOSE (test code = 131 MG/DL 74-106 H GLU) BLOOD UREA NITROGEN 51 MG/DL 9-20 H (test code = BUN) GLOMERULAR FILTRATION 14 Report ing units: RATE (test code = GFR) ml/mi n/1.73 m2 (Modified MDRD Formula)Referen ce Range: > or = 6 0 ml/min/1.73 m2 CREATININE (test code 4.30 MG/DL 0.66-1.25 H = CREAT) CALCIUM (test code = 9.0 MG/DL 8.4-10.2 N CA) [id number] 07:51:00 Test Item Value Reference Range Interpretation Comments MAGNESIUM (test code = MAG) 2.2 MG/DL 1.6-2.3 N CBC W/AUTO [id number] 07:21:00 Test Item Value Reference Range Interpretation Comments WHITE BLOOD CELL (test code = 4.9 K/MM3 3.8-9.8 N WBC) RED BLOOD CELL (test code = 3.65 M/MM3 3.95-5.67 L RBC) HEMOGLOBIN (test code = HGB) 10.5 G/DL 12.4-16.7 L HEMATOCRIT (test code = HCT) 33.8 % 35.9-49.5 L MEAN CELL VOLUME (test code = 93 fL 81.7-96.1 N MCV) MEAN CELL HGB (test code = MCH) 28.8 pg 27.6-33.2 N MEAN CELL HGB CONCETRATION 31.1 % 32.9-35.5 L (test code = MCHC) RED CELL DISTRIBUTION WIDTH 14.8 % 12.1-15.2 N (test code = RDW) PLATELET COUNT (test code = 196 K/MM3 129-368 N PLT) MEAN PLATELET VOLUME (test code 10.7 fl 7.4-10.4 H = MPV) NEUTROPHIL % (test code = NT%) 63.2 % 43-75 N IMMATURE GRANULOCYTE % (test 1.0 % 0.0-2.0 N code = IG%) LYMPHOCYTE % (test code = LY%) 21.0 % 14-44 N MONOCYTE % (test code = MO%) 11.1 % 4-13 N EOSINOPHIL % (test code = EO%) 2.3 % 0-6 N BASOPHIL % (test code = BA%) 1.4 % 0-2 N NUCLEATED RBC % (test code = 0.0 % 0-1.0 N NRBC%) NEUTROPHIL # (test code = NT#) 3.07 K/mm3 2.0-7.6 N IMMATURE GRANULOCYTE # (test 0.05 x10 3/uL 0-0.03 H code = IG#) LYMPHOCYTE # (test code = LY#) 1.02 K/mm3 1.0-3.8 N MONOCYTE # (test code = MO#) 0.54 K/mm3 0.1-0.8 N EOSINOPHIL # (test code = EO#) 0.11 K/mm3 0.0-0.2 N BASOPHIL # (test code = BA#) 0.07 K/mm3 0.0-0.2 N NUCLEATED RBC # (test code = 0.00 K/mm3 0.0-0.1 N NRBC#) GLUCOSE BEDSIDE [id number] 20:07:00 Test Item Value Reference Range Interpretation Comments GLUCOSE BEDSIDE TESTING (test code 188 MG/DL 60-99 H = GLUBED) GLUCOSE BEDSIDE [id number] 17:51:00 Test Item Value Reference Range Interpretation Comments GLUCOSE BEDSIDE TESTING (test code 232 MG/DL 60-99 H = GLUBED) GLUCOSE BEDSIDE [id number] 12:34:00 Test Item Value Reference Range Interpretation Comments GLUCOSE BEDSIDE TESTING (test code 195 MG/DL 60-99 H = GLUBED) GLUCOSE BEDSIDE [id number] 08:09:00 Test Item Value Reference Range Interpretation Comments GLUCOSE BEDSIDE TESTING (test code 163 MG/DL 60-99 H = GLUBED) GLYCOSYLATED HEMOGLOBIN [id number] 07:54:00 Test Item Value Reference Range Interpretation Comments GLYCOSYLATED 7.7 % 4.8-5.9 H Any condition t hat HEMOGLOBIN (HA1C) shortens e rythocyte (test code = survival or dec reasesmean GLYHGB) erythrocyte age (e.g., recovery from a cute blood loss,hemolytic anemia) will falsely lo wer HGBA1c resultsregardle ss of the method used. H GBA1c results from emilee flores HbSS, HbCC, and HbSc must be interpreted with cautiongiven th e pathological pr ocesses, including anemia,increase d red cell turnover, trans fusion requirements, thatadversely i mpact HGBA1c as a mar ker of long-term glycemiccontrol . Alternative for ms of testing such as fructosaminesho uld be considered for these patients. MEAN BLOOD GLUCOSE 174 MG/DL 70-110 H (test code = MBG) BASIC METABOLIC [id number] 07:34:00 Test Item Value Reference Range Interpretation Comments SODIUM (test code = 137 MMOL/L 137-145 N NA) POTASSIUM (test code = 4.8 MMOL/L 3.5-5.1 N K) CHLORIDE (test code = 101 MMOL/L 98-107 N CL) CARBON DIOXIDE (test 22 MMOL/L 22-30 N code = CO2) ANION GAP (test code = 19 MMOL/L 14-24 N GAP) GLUCOSE (test code = 174 MG/DL 74-106 H GLU) BLOOD UREA NITROGEN 44 MG/DL 9-20 H (test code = BUN) GLOMERULAR FILTRATION 16 Report ing units: RATE (test code = GFR) ml/mi n/1.73 m2 (Modified MDRD Formula)Referen ce Range: > or = 6 0 ml/min/1.73 m2 CREATININE (test code 3.80 MG/DL 0.66-1.25 H = CREAT) CALCIUM (test code = 8.7 MG/DL 8.4-10.2 N CA) [id number] 07:34:00 Test Item Value Reference Range Interpretation Comments MAGNESIUM (test code = MAG) 1.9 MG/DL 1.6-2.3 N CBC W/AUTO [id number] 07:16:00 Test Item Value Reference Range Interpretation Comments WHITE BLOOD CELL (test code = 5.3 K/MM3 3.8-9.8 N WBC) RED BLOOD CELL (test code = 3.32 M/MM3 3.95-5.67 L RBC) HEMOGLOBIN (test code = HGB) 9.9 G/DL 12.4-16.7 L HEMATOCRIT (test code = HCT) 31.3 % 35.9-49.5 L MEAN CELL VOLUME (test code = 94 fL 81.7-96.1 N MCV) MEAN CELL HGB (test code = MCH) 29.8 pg 27.6-33.2 N MEAN CELL HGB CONCETRATION 31.6 % 32.9-35.5 L (test code = MCHC) RED CELL DISTRIBUTION WIDTH 15.1 % 12.1-15.2 N (test code = RDW) PLATELET COUNT (test code = 165 K/MM3 129-368 N PLT) MEAN PLATELET VOLUME (test code 10.3 fl 7.4-10.4 N = MPV) NEUTROPHIL % (test code = NT%) 62.8 % 43-75 N IMMATURE GRANULOCYTE % (test 0.9 % 0.0-2.0 N code = IG%) LYMPHOCYTE % (test code = LY%) 21.9 % 14-44 N MONOCYTE % (test code = MO%) 10.8 % 4-13 N EOSINOPHIL % (test code = EO%) 2.5 % 0-6 N BASOPHIL % (test code = BA%) 1.1 % 0-2 N NUCLEATED RBC % (test code = 0.0 % 0-1.0 N NRBC%) NEUTROPHIL # (test code = NT#) 3.32 K/mm3 2.0-7.6 N IMMATURE GRANULOCYTE # (test 0.05 x10 3/uL 0-0.03 H code = IG#) LYMPHOCYTE # (test code = LY#) 1.16 K/mm3 1.0-3.8 N MONOCYTE # (test code = MO#) 0.57 K/mm3 0.1-0.8 N EOSINOPHIL # (test code = EO#) 0.13 K/mm3 0.0-0.2 N BASOPHIL # (test code = BA#) 0.06 K/mm3 0.0-0.2 N NUCLEATED RBC # (test code = 0.00 K/mm3 0.0-0.1 N NRBC#) GLUCOSE BEDSIDE [id number] 21:08:00 Test Item Value Reference Range Interpretation Comments GLUCOSE BEDSIDE TESTING (test code 226 MG/DL 60-99 H = GLUBED) GLUCOSE BEDSIDE [id number] 15:59:00 Test Item Value Reference Range Interpretation Comments GLUCOSE BEDSIDE TESTING (test code 252 MG/DL 60-99 H = GLUBED) BASIC METABOLIC [id number] 13:07:00 Test Item Value Reference Range Interpretation Comments SODIUM (test code = 135 MMOL/L 137-145 L NA) POTASSIUM (test code = 4.9 MMOL/L 3.5-5.1 N K) CHLORIDE (test code = 97 MMOL/L 98-107 L CL) CARBON DIOXIDE (test 26 MMOL/L 22-30 N code = CO2) ANION GAP (test code = 17 MMOL/L 14-24 N GAP) GLUCOSE (test code = 278 MG/DL 74-106 H GLU) BLOOD UREA NITROGEN 39 MG/DL 9-20 H (test code = BUN) GLOMERULAR FILTRATION 18 Report ing units: RATE (test code = GFR) ml/mi n/1.73 m2 (Modified MDRD Formula)Referen ce Range: > or = 6 0 ml/min/1.73 m2 CREATININE (test code 3.40 MG/DL 0.66-1.25 H = CREAT) CALCIUM (test code = 8.5 MG/DL 8.4-10.2 N CA) [id number] 13:07:00 Test Item Value Reference Range Interpretation Comments MAGNESIUM (test code = MAG) 1.8 MG/DL 1.6-2.3 N GLUCOSE BEDSIDE [id number] 10:43:00 Test Item Value Reference Range Interpretation Comments GLUCOSE BEDSIDE TESTING (test code 274 MG/DL 60-99 H = GLUBED) GLUCOSE BEDSIDE [id number] 07:20:00 Test Item Value Reference Range Interpretation Comments GLUCOSE BEDSIDE TESTING (test code 181 MG/DL 60-99 H = GLUBED) CBC W/AUTO [id number] 06:53:00 Test Item Value Reference Range Interpretation Comments WHITE BLOOD CELL (test code = 6.6 K/MM3 3.8-9.8 N WBC) RED BLOOD CELL (test code = 3.54 M/MM3 3.95-5.67 L RBC) HEMOGLOBIN (test code = HGB) 10.3 G/DL 12.4-16.7 L HEMATOCRIT (test code = HCT) 33.2 % 35.9-49.5 L MEAN CELL VOLUME (test code = 94 fL 81.7-96.1 N MCV) MEAN CELL HGB (test code = MCH) 29.1 pg 27.6-33.2 N MEAN CELL HGB CONCETRATION 31.0 % 32.9-35.5 L (test code = MCHC) RED CELL DISTRIBUTION WIDTH 14.8 % 12.1-15.2 N (test code = RDW) PLATELET COUNT (test code = 198 K/MM3 129-368 N PLT) MEAN PLATELET VOLUME (test code 10.6 fl 7.4-10.4 H = MPV) NEUTROPHIL % (test code = NT%) 64.2 % 43-75 N IMMATURE GRANULOCYTE % (test 1.5 % 0.0-2.0 N code = IG%) LYMPHOCYTE % (test code = LY%) 19.1 % 14-44 N MONOCYTE % (test code = MO%) 11.6 % 4-13 N EOSINOPHIL % (test code = EO%) 2.4 % 0-6 N BASOPHIL % (test code = BA%) 1.2 % 0-2 N NUCLEATED RBC % (test code = 0.0 % 0-1.0 N NRBC%) NEUTROPHIL # (test code = NT#) 4.20 K/mm3 2.0-7.6 N IMMATURE GRANULOCYTE # (test 0.10 x10 3/uL 0-0.03 H code = IG#) LYMPHOCYTE # (test code = LY#) 1.25 K/mm3 1.0-3.8 N MONOCYTE # (test code = MO#) 0.76 K/mm3 0.1-0.8 N EOSINOPHIL # (test code = EO#) 0.16 K/mm3 0.0-0.2 N BASOPHIL # (test code = BA#) 0.08 K/mm3 0.0-0.2 N NUCLEATED RBC # (test code = 0.00 K/mm3 0.0-0.1 N NRBC#) GLUCOSE BEDSIDE [id number] 18:54:00 Test Item Value Reference Range Interpretation Comments GLUCOSE BEDSIDE TESTING (test code 325 MG/DL 60-99 HH = GLUBED) GLUCOSE BEDSIDE [id number] 16:41:00 Test Item Value Reference Range Interpretation Comments GLUCOSE BEDSIDE TESTING (test code 297 MG/DL 60-99 H = GLUBED) BASIC METABOLIC [id number] 07:14:00 Test Item Value Reference Range Interpretation Comments SODIUM (test code = 139 MMOL/L 137-145 N NA) POTASSIUM (test code = 4.6 MMOL/L 3.5-5.1 N K) CHLORIDE (test code = 103 MMOL/L 98-107 N CL) CARBON DIOXIDE (test 23 MMOL/L 22-30 N code = CO2) ANION GAP (test code = 18 MMOL/L 14-24 N GAP) GLUCOSE (test code = 154 MG/DL 74-106 H GLU) BLOOD UREA NITROGEN 36 MG/DL 9-20 H (test code = BUN) GLOMERULAR FILTRATION 17 Report ing units: RATE (test code = GFR) ml/mi n/1.73 m2 (Modified MDRD Formula)Referen ce Range: > or = 6 0 ml/min/1.73 m2 CREATININE (test code 3.60 MG/DL 0.66-1.25 H = CREAT) CALCIUM (test code = 8.8 MG/DL 8.4-10.2 N CA) [id number] 07:14:00 Test Item Value Reference Range Interpretation Comments MAGNESIUM (test code = MAG) 2.0 MG/DL 1.6-2.3 N CBC W/AUTO [id number] 06:52:00 Test Item Value Reference Range Interpretation Comments WHITE BLOOD CELL (test code = 6.3 K/MM3 3.8-9.8 N WBC) RED BLOOD CELL (test code = 3.60 M/MM3 3.95-5.67 L RBC) HEMOGLOBIN (test code = HGB) 10.4 G/DL 12.4-16.7 L HEMATOCRIT (test code = HCT) 33.4 % 35.9-49.5 L MEAN CELL VOLUME (test code = 93 fL 81.7-96.1 N MCV) MEAN CELL HGB (test code = MCH) 28.9 pg 27.6-33.2 N MEAN CELL HGB CONCETRATION 31.1 % 32.9-35.5 L (test code = MCHC) RED CELL DISTRIBUTION WIDTH 14.9 % 12.1-15.2 N (test code = RDW) PLATELET COUNT (test code = 211 K/MM3 129-368 N PLT) MEAN PLATELET VOLUME (test code 10.3 fl 7.4-10.4 N = MPV) NEUTROPHIL % (test code = NT%) 66.4 % 43-75 N IMMATURE GRANULOCYTE % (test 1.9 % 0.0-2.0 N code = IG%) LYMPHOCYTE % (test code = LY%) 17.4 % 14-44 N MONOCYTE % (test code = MO%) 10.6 % 4-13 N EOSINOPHIL % (test code = EO%) 2.4 % 0-6 N BASOPHIL % (test code = BA%) 1.3 % 0-2 N NUCLEATED RBC % (test code = 0.0 % 0-1.0 N NRBC%) NEUTROPHIL # (test code = NT#) 4.20 K/mm3 2.0-7.6 N IMMATURE GRANULOCYTE # (test 0.12 x10 3/uL 0-0.03 H code = IG#) LYMPHOCYTE # (test code = LY#) 1.10 K/mm3 1.0-3.8 N MONOCYTE # (test code = MO#) 0.67 K/mm3 0.1-0.8 N EOSINOPHIL # (test code = EO#) 0.15 K/mm3 0.0-0.2 N BASOPHIL # (test code = BA#) 0.08 K/mm3 0.0-0.2 N NUCLEATED RBC # (test code = 0.00 K/mm3 0.0-0.1 N NRBC#) GLUCOSE BEDSIDE [id number] 06:27:00 Test Item Value Reference Range Interpretation Comments GLUCOSE BEDSIDE TESTING (test code 138 MG/DL 60-99 H = GLUBED) GLUCOSE BEDSIDE [id number] 19:44:00 Test Item Value Reference Range Interpretation Comments GLUCOSE BEDSIDE TESTING (test code 313 MG/DL 60-99 HH = GLUBED) GLUCOSE BEDSIDE [id number] 16:54:00 Test Item Value Reference Range Interpretation Comments GLUCOSE BEDSIDE TESTING (test code 145 MG/DL 60-99 H = GLUBED) GLUCOSE BEDSIDE [id number] 12:08:00 Test Item Value Reference Range Interpretation Comments GLUCOSE BEDSIDE TESTING (test code 174 MG/DL 60-99 H = GLUBED) GLUCOSE BEDSIDE [id number] 08:09:00 Test Item Value Reference Range Interpretation Comments GLUCOSE BEDSIDE TESTING (test code 213 MG/DL 60-99 H = GLUBED) BASIC METABOLIC [id number] 06:07:00 Test Item Value Reference Range Interpretation Comments SODIUM (test code = 137 MMOL/L 137-145 N NA) POTASSIUM (test code = 4.1 MMOL/L 3.5-5.1 N K) CHLORIDE (test code = 101 MMOL/L 98-107 N CL) CARBON DIOXIDE (test 25 MMOL/L 22-30 N code = CO2) ANION GAP (test code = 15 MMOL/L 14-24 N GAP) GLUCOSE (test code = 197 MG/DL 74-106 H GLU) BLOOD UREA NITROGEN 22 MG/DL 9-20 H (test code = BUN) GLOMERULAR FILTRATION 26 Report ing units: RATE (test code = GFR) ml/mi n/1.73 m2 (Modified MDRD Formula)Referen ce Range: > or = 6 0 ml/min/1.73 m2 CREATININE (test code 2.50 MG/DL 0.66-1.25 H = CREAT) CALCIUM (test code = 8.6 MG/DL 8.4-10.2 N CA) [id number] 06:07:00 Test Item Value Reference Range Interpretation Comments PHOSPHOROUS (test code = PHOS) 3.8 MG/DL 2.5-4.5 N [id number] 06:07:00 Test Item Value Reference Range Interpretation Comments MAGNESIUM (test code = MAG) 1.7 MG/DL 1.6-2.3 N CBC W/AUTO [id number] 05:56:00 Test Item Value Reference Range Interpretation Comments WHITE BLOOD CELL (test code = 6.3 K/MM3 3.8-9.8 N WBC) RED BLOOD CELL (test code = 3.27 M/MM3 3.95-5.67 L RBC) HEMOGLOBIN (test code = HGB) 9.7 G/DL 12.4-16.7 L HEMATOCRIT (test code = HCT) 30.9 % 35.9-49.5 L MEAN CELL VOLUME (test code = 95 fL 81.7-96.1 N MCV) MEAN CELL HGB (test code = MCH) 29.7 pg 27.6-33.2 N MEAN CELL HGB CONCETRATION 31.4 % 32.9-35.5 L (test code = MCHC) RED CELL DISTRIBUTION WIDTH 15.1 % 12.1-15.2 N (test code = RDW) PLATELET COUNT (test code = 180 K/MM3 129-368 N PLT) MEAN PLATELET VOLUME (test code 10.5 fl 7.4-10.4 H = MPV) NEUTROPHIL % (test code = NT%) 69.4 % 43-75 N IMMATURE GRANULOCYTE % (test 1.8 % 0.0-2.0 N code = IG%) LYMPHOCYTE % (test code = LY%) 16.8 % 14-44 N MONOCYTE % (test code = MO%) 8.8 % 4-13 N EOSINOPHIL % (test code = EO%) 2.4 % 0-6 N BASOPHIL % (test code = BA%) 0.8 % 0-2 N NUCLEATED RBC % (test code = 0.0 % 0-1.0 N NRBC%) NEUTROPHIL # (test code = NT#) 4.35 K/mm3 2.0-7.6 N IMMATURE GRANULOCYTE # (test 0.11 x10 3/uL 0-0.03 H code = IG#) LYMPHOCYTE # (test code = LY#) 1.05 K/mm3 1.0-3.8 N MONOCYTE # (test code = MO#) 0.55 K/mm3 0.1-0.8 N EOSINOPHIL # (test code = EO#) 0.15 K/mm3 0.0-0.2 N BASOPHIL # (test code = BA#) 0.05 K/mm3 0.0-0.2 N NUCLEATED RBC # (test code = 0.00 K/mm3 0.0-0.1 N NRBC#) GLUCOSE BEDSIDE [id number] 05:18:00 Test Item Value Reference Range Interpretation Comments GLUCOSE BEDSIDE TESTING (test code 199 MG/DL 60-99 H = GLUBED) GLUCOSE BEDSIDE [id number] 00:51:00 Test Item Value Reference Range Interpretation Comments GLUCOSE BEDSIDE TESTING (test code 272 MG/DL 60-99 H = GLUBED) GLUCOSE BEDSIDE [id number] 19:16:00 Test Item Value Reference Range Interpretation Comments GLUCOSE BEDSIDE TESTING (test code 277 MG/DL 60-99 H = GLUBED) GLUCOSE BEDSIDE [id number] 16:07:00 Test Item Value Reference Range Interpretation Comments GLUCOSE BEDSIDE TESTING (test code 309 MG/DL 60-99 HH = GLUBED) GLUCOSE BEDSIDE [id number] 12:12:00 Test Item Value Reference Range Interpretation Comments GLUCOSE BEDSIDE TESTING (test code 169 MG/DL 60-99 H = GLUBED) GLUCOSE BEDSIDE [id number] 08:02:00 Test Item Value Reference Range Interpretation Comments GLUCOSE BEDSIDE TESTING (test code 166 MG/DL 60-99 H = GLUBED) CBC W/AUTO [id number] 06:26:00 Test Item Value Reference Range Interpretation Comments WHITE BLOOD CELL (test code = 6.9 K/MM3 3.8-9.8 N WBC) RED BLOOD CELL (test code = 3.34 M/MM3 3.95-5.67 L RBC) HEMOGLOBIN (test code = HGB) 9.4 G/DL 12.4-16.7 L HEMATOCRIT (test code = HCT) 30.8 % 35.9-49.5 L MEAN CELL VOLUME (test code = 92 fL 81.7-96.1 N MCV) MEAN CELL HGB (test code = MCH) 28.1 pg 27.6-33.2 N MEAN CELL HGB CONCETRATION 30.5 % 32.9-35.5 L (test code = MCHC) RED CELL DISTRIBUTION WIDTH 14.5 % 12.1-15.2 N (test code = RDW) PLATELET COUNT (test code = 195 K/MM3 129-368 N PLT) MEAN PLATELET VOLUME (test code 10.7 fl 7.4-10.4 H = MPV) NEUTROPHIL % (test code = NT%) 66.7 % 43-75 N IMMATURE GRANULOCYTE % (test 2.0 % 0.0-2.0 N code = IG%) LYMPHOCYTE % (test code = LY%) 18.0 % 14-44 N MONOCYTE % (test code = MO%) 9.0 % 4-13 N EOSINOPHIL % (test code = EO%) 3.3 % 0-6 N BASOPHIL % (test code = BA%) 1.0 % 0-2 N NUCLEATED RBC % (test code = 0.0 % 0-1.0 N NRBC%) NEUTROPHIL # (test code = NT#) 4.59 K/mm3 2.0-7.6 N IMMATURE GRANULOCYTE # (test 0.14 x10 3/uL 0-0.03 H code = IG#) LYMPHOCYTE # (test code = LY#) 1.24 K/mm3 1.0-3.8 N MONOCYTE # (test code = MO#) 0.62 K/mm3 0.1-0.8 N EOSINOPHIL # (test code = EO#) 0.23 K/mm3 0.0-0.2 H BASOPHIL # (test code = BA#) 0.07 K/mm3 0.0-0.2 N NUCLEATED RBC # (test code = 0.00 K/mm3 0.0-0.1 N NRBC#) GLUCOSE BEDSIDE [id number] 05:50:00 Test Item Value Reference Range Interpretation Comments GLUCOSE BEDSIDE TESTING (test code 178 MG/DL 60-99 H = GLUBED) GLUCOSE BEDSIDE [id number] 20:23:00 Test Item Value Reference Range Interpretation Comments GLUCOSE BEDSIDE TESTING (test code 295 MG/DL 60-99 H = GLUBED) GLUCOSE BEDSIDE [id number] 15:56:00 Test Item Value Reference Range Interpretation Comments GLUCOSE BEDSIDE TESTING (test code 246 MG/DL 60-99 H = GLUBED) GLUCOSE BEDSIDE [id number] 11:14:00 Test Item Value Reference Range Interpretation Comments GLUCOSE BEDSIDE TESTING (test code 256 MG/DL 60-99 H = GLUBED) BASIC METABOLIC [id number] 08:15:00 Test Item Value Reference Range Interpretation Comments SODIUM (test code = 138 MMOL/L 137-145 N NA) POTASSIUM (test code = 4.4 MMOL/L 3.5-5.1 N K) CHLORIDE (test code = 101 MMOL/L 98-107 N CL) CARBON DIOXIDE (test 25 MMOL/L 22-30 N code = CO2) ANION GAP (test code = 16 MMOL/L 14-24 N GAP) GLUCOSE (test code = 152 MG/DL 74-106 H GLU) BLOOD UREA NITROGEN 40 MG/DL 9-20 H (test code = BUN) GLOMERULAR FILTRATION 15 Report ing units: RATE (test code = GFR) ml/mi n/1.73 m2 (Modified MDRD Formula)Referen ce Range: > or = 6 0 ml/min/1.73 m2 CREATININE (test code 3.90 MG/DL 0.66-1.25 H = CREAT) CALCIUM (test code = 8.6 MG/DL 8.4-10.2 N CA) [id number] 08:15:00 Test Item Value Reference Range Interpretation Comments ALBUMIN (test code = ALB) 3.6 G/DL 3.5-5.0 N [id number] 08:15:00 Test Item Value Reference Range Interpretation Comments PHOSPHOROUS (test code = PHOS) 5.3 MG/DL 2.5-4.5 H [id number] 08:15:00 Test Item Value Reference Range Interpretation Comments MAGNESIUM (test code = MAG) 1.8 MG/DL 1.6-2.3 N CBC W/AUTO [id number] 07:40:00 Test Item Value Reference Range Interpretation Comments WHITE BLOOD CELL (test code = 7.7 K/MM3 3.8-9.8 N WBC) RED BLOOD CELL (test code = 3.41 M/MM3 3.95-5.67 L RBC) HEMOGLOBIN (test code = HGB) 10.1 G/DL 12.4-16.7 L HEMATOCRIT (test code = HCT) 30.9 % 35.9-49.5 L MEAN CELL VOLUME (test code = 91 fL 81.7-96.1 N MCV) MEAN CELL HGB (test code = MCH) 29.6 pg 27.6-33.2 N MEAN CELL HGB CONCETRATION 32.7 % 32.9-35.5 L (test code = MCHC) RED CELL DISTRIBUTION WIDTH 14.6 % 12.1-15.2 N (test code = RDW) PLATELET COUNT (test code = 205 K/MM3 129-368 PLT) MEAN PLATELET VOLUME (test code 10.7 fl 7.4-10.4 H = MPV) NEUTROPHIL % (test code = NT%) 66.0 % 43-75 N IMMATURE GRANULOCYTE % (test 1.9 % 0.0-2.0 N code = IG%) LYMPHOCYTE % (test code = LY%) 17.7 % 14-44 N MONOCYTE % (test code = MO%) 10.0 % 4-13 N EOSINOPHIL % (test code = EO%) 3.4 % 0-6 N BASOPHIL % (test code = BA%) 1.0 % 0-2 N NUCLEATED RBC % (test code = 0.3 % 0-1.0 N NRBC%) NEUTROPHIL # (test code = NT#) 5.09 K/mm3 2.0-7.6 N IMMATURE GRANULOCYTE # (test 0.15 x10 3/uL 0-0.03 H code = IG#) LYMPHOCYTE # (test code = LY#) 1.37 K/mm3 1.0-3.8 N MONOCYTE # (test code = MO#) 0.77 K/mm3 0.1-0.8 N EOSINOPHIL # (test code = EO#) 0.26 K/mm3 0.0-0.2 H BASOPHIL # (test code = BA#) 0.08 K/mm3 0.0-0.2 N NUCLEATED RBC # (test code = 0.02 K/mm3 0.0-0.1 N NRBC#) GLUCOSE BEDSIDE [id number] 06:28:00 Test Item Value Reference Range Interpretation Comments GLUCOSE BEDSIDE TESTING (test code 162 MG/DL 60-99 H = GLUBED) GLUCOSE BEDSIDE [id number] 06:27:00 Test Item Value Reference Range Interpretation Comments GLUCOSE BEDSIDE TESTING (test code 186 MG/DL 60-99 H = GLUBED) GLUCOSE BEDSIDE [id number] 20:42:00 Test Item Value Reference Range Interpretation Comments GLUCOSE BEDSIDE TESTING (test code 293 MG/DL 60-99 H = GLUBED) GLUCOSE BEDSIDE [id number] 16:22:00 Test Item Value Reference Range Interpretation Comments GLUCOSE BEDSIDE TESTING (test code 252 MG/DL 60-99 H = GLUBED) GLUCOSE BEDSIDE [id number] 10:56:00 Test Item Value Reference Range Interpretation Comments GLUCOSE BEDSIDE TESTING (test code 347 MG/DL 60-99 HH = GLUBED) VITAMIN [id number] 08:36:00 Test Item Value Reference Range Interpretation Comments Vitamin B1 47 nmol/L 8-30 H Vitamin supplem entation within (test code = 24 hours prior toblood draw june [id number]) affect the accu racy of results.This te st was developed and its analyti miguel ángel performancechar acteristics have been determined by [employer]. It has not been cleared or approved by theA. This as say has been validated pursu ant to the CLIAregulations and is used for clinical purpos es.TEST PERFORMED AT:[email or web address] [facility] SOLIS [id number] [facility] [id number] Tea BURNETT MD GLUCOSE BEDSIDE [id number] 07:05:00 Test Item Value Reference Range Interpretation Comments GLUCOSE BEDSIDE TESTING (test code 165 MG/DL 60-99 H = GLUBED) GLUCOSE BEDSIDE [id number] 20:16:00 Test Item Value Reference Range Interpretation Comments GLUCOSE BEDSIDE TESTING (test code 219 MG/DL 60-99 H = GLUBED) GLUCOSE BEDSIDE [id number] 18:08:00 Test Item Value Reference Range Interpretation Comments GLUCOSE BEDSIDE TESTING (test code 323 MG/DL 60-99 HH = GLUBED) GLUCOSE BEDSIDE [id number] 10:42:00 Test Item Value Reference Range Interpretation Comments GLUCOSE BEDSIDE TESTING (test code 262 MG/DL 60-99 H = GLUBED) GLUCOSE BEDSIDE [id number] 07:21:00 Test Item Value Reference Range Interpretation Comments GLUCOSE BEDSIDE TESTING (test code 194 MG/DL 60-99 H = GLUBED) CBC W/AUTO [id number] 06:55:00 Test Item Value Reference Range Interpretation Comments WHITE BLOOD CELL (test code = 6.7 K/MM3 3.8-9.8 N WBC) RED BLOOD CELL (test code = 3.06 M/MM3 3.95-5.67 L RBC) HEMOGLOBIN (test code = HGB) 8.7 G/DL 12.4-16.7 L HEMATOCRIT (test code = HCT) 27.9 % 35.9-49.5 L MEAN CELL VOLUME (test code = 91 fL 81.7-96.1 N MCV) MEAN CELL HGB (test code = MCH) 28.4 pg 27.6-33.2 N MEAN CELL HGB CONCETRATION 31.2 % 32.9-35.5 L (test code = MCHC) RED CELL DISTRIBUTION WIDTH 14.5 % 12.1-15.2 N (test code = RDW) PLATELET COUNT (test code = 148 K/MM3 129-368 N PLT) MEAN PLATELET VOLUME (test code 11.7 fl 7.4-10.4 H = MPV) NEUTROPHIL % (test code = NT%) 68.8 % 43-75 N IMMATURE GRANULOCYTE % (test 0.9 % 0.0-2.0 N code = IG%) LYMPHOCYTE % (test code = LY%) 14.1 % 14-44 N MONOCYTE % (test code = MO%) 11.9 % 4-13 N EOSINOPHIL % (test code = EO%) 3.6 % 0-6 N BASOPHIL % (test code = BA%) 0.7 % 0-2 N NUCLEATED RBC % (test code = 0.0 % 0-1.0 N NRBC%) NEUTROPHIL # (test code = NT#) 4.62 K/mm3 2.0-7.6 N IMMATURE GRANULOCYTE # (test 0.06 x10 3/uL 0-0.03 H code = IG#) LYMPHOCYTE # (test code = LY#) 0.95 K/mm3 1.0-3.8 L MONOCYTE # (test code = MO#) 0.80 K/mm3 0.1-0.8 N EOSINOPHIL # (test code = EO#) 0.24 K/mm3 0.0-0.2 H BASOPHIL # (test code = BA#) 0.05 K/mm3 0.0-0.2 N NUCLEATED RBC # (test code = 0.00 K/mm3 0.0-0.1 N NRBC#) BASIC METABOLIC [id number] 06:48:00 Test Item Value Reference Range Interpretation Comments SODIUM (test code = 137 MMOL/L 137-145 N NA) POTASSIUM (test code = 4.0 MMOL/L 3.5-5.1 N K) CHLORIDE (test code = 102 MMOL/L 98-107 N CL) CARBON DIOXIDE (test 24 MMOL/L 22-30 N code = CO2) ANION GAP (test code = 15 MMOL/L 14-24 N GAP) GLUCOSE (test code = 193 MG/DL 74-106 H GLU) BLOOD UREA NITROGEN 48 MG/DL 9-20 H (test code = BUN) GLOMERULAR FILTRATION 17 Report ing units: RATE (test code = GFR) ml/mi n/1.73 m2 (Modified MDRD Formula)Referen ce Range: > or = 6 0 ml/min/1.73 m2 CREATININE (test code 3.60 MG/DL 0.66-1.25 H = CREAT) CALCIUM (test code = 8.1 MG/DL 8.4-10.2 L CA) [id number] 06:48:00 Test Item Value Reference Range Interpretation Comments ALBUMIN (test code = ALB) 3.3 G/DL 3.5-5.0 L [id number] 06:48:00 Test Item Value Reference Range Interpretation Comments PHOSPHOROUS (test code = PHOS) 5.2 MG/DL 2.5-4.5 H [id number] 06:48:00 Test Item Value Reference Range Interpretation Comments MAGNESIUM (test code = MAG) 1.9 MG/DL 1.6-2.3 N GLUCOSE BEDSIDE [id number] 19:24:00 Test Item Value Reference Range Interpretation Comments GLUCOSE BEDSIDE TESTING (test code 195 MG/DL 60-99 H = GLUBED) COVID 19 Asymptomatic IH [id number] 17:10:00 Test Item Value Reference Range Interpretation Comments COVID 19 NEGATIVE Negative "Negative resul ts from Asymptomatic IH AG patients with symptom (test code = onset beyondfiv e days, COVNONPUIAG) should be robbie pal as presumptive, andconfirmation with a molecular assay , if necessary forpa tient management may be performed. Nega tive results do notr ule out COVID-19 and sh ould not be used as the sole basisfor treatm ent or patient managem ent decisions, includinginfect ion control decisio ns. Negative result s should beconsidered in the context of a pa tients recent exposure s,history, and the presenc e of clinical signs and symptomsconsist ent with COVID-19.This t est detects both vi able andnon-viable S ARS-CoV and SARS CoV-2. Test performance dep endson the amount of virus (antigen) in the sample." GLUCOSE BEDSIDE [id number] 16:23:00 Test Item Value Reference Range Interpretation Comments GLUCOSE BEDSIDE TESTING (test code 279 MG/DL 60-99 H = GLUBED) [id number] 15:28:00 Test Item Value Reference Range Interpretation Comments TROPONIN-I (test 2.440 NG/ML 0.012-0.033 HH CALLED TO Fredrick Howell& code = TROPI) READBACK ON AT 1528 BY Miko Kaufman GLUCOSE BEDSIDE [id number] 12:06:00 Test Item Value Reference Range Interpretation Comments GLUCOSE BEDSIDE TESTING (test code 237 MG/DL 60-99 H = GLUBED) GLUCOSE BEDSIDE [id number] 07:22:00 Test Item Value Reference Range Interpretation Comments GLUCOSE BEDSIDE TESTING (test code 196 MG/DL 60-99 H = GLUBED) BASIC METABOLIC [id number] 07:07:00 Test Item Value Reference Range Interpretation Comments SODIUM (test code = 139 MMOL/L 137-145 N NA) POTASSIUM (test code = 4.0 MMOL/L 3.5-5.1 N K) CHLORIDE (test code = 104 MMOL/L 98-107 N CL) CARBON DIOXIDE (test 22 MMOL/L 22-30 N code = CO2) ANION GAP (test code = 17 MMOL/L 14-24 N GAP) GLUCOSE (test code = 187 MG/DL 74-106 H GLU) BLOOD UREA NITROGEN 70 MG/DL 9-20 H (test code = BUN) GLOMERULAR FILTRATION 13 Report ing units: RATE (test code = GFR) ml/mi n/1.73 m2 (Modified MDRD Formula)Referen ce Range: > or = 6 0 ml/min/1.73 m2 CREATININE (test code 4.40 MG/DL 0.66-1.25 H = CREAT) CALCIUM (test code = 8.2 MG/DL 8.4-10.2 L CA) [id number] 07:07:00 Test Item Value Reference Range Interpretation Comments ALBUMIN (test code = ALB) 3.4 G/DL 3.5-5.0 L [id number] 07:07:00 Test Item Value Reference Range Interpretation Comments PHOSPHOROUS (test code = PHOS) 4.7 MG/DL 2.5-4.5 H [id number] 07:07:00 Test Item Value Reference Range Interpretation Comments MAGNESIUM (test code = MAG) 2.2 MG/DL 1.6-2.3 N CBC W/AUTO [id number] 06:16:00 Test Item Value Reference Range Interpretation Comments WHITE BLOOD CELL (test code = 5.8 K/MM3 3.8-9.8 N WBC) RED BLOOD CELL (test code = 3.16 M/MM3 3.95-5.67 L RBC) HEMOGLOBIN (test code = HGB) 9.1 G/DL 12.4-16.7 L HEMATOCRIT (test code = HCT) 28.8 % 35.9-49.5 L MEAN CELL VOLUME (test code = 91 fL 81.7-96.1 N MCV) MEAN CELL HGB (test code = MCH) 28.8 pg 27.6-33.2 N MEAN CELL HGB CONCETRATION 31.6 % 32.9-35.5 L (test code = MCHC) RED CELL DISTRIBUTION WIDTH 14.5 % 12.1-15.2 N (test code = RDW) PLATELET COUNT (test code = 164 K/MM3 129-368 N PLT) MEAN PLATELET VOLUME (test code 11.5 fl 7.4-10.4 H = MPV) NEUTROPHIL % (test code = NT%) 71.0 % 43-75 N IMMATURE GRANULOCYTE % (test 0.5 % 0.0-2.0 N code = IG%) LYMPHOCYTE % (test code = LY%) 12.2 % 14-44 L MONOCYTE % (test code = MO%) 12.5 % 4-13 N EOSINOPHIL % (test code = EO%) 3.1 % 0-6 N BASOPHIL % (test code = BA%) 0.7 % 0-2 N NUCLEATED RBC % (test code = 0.0 % 0-1.0 N NRBC%) NEUTROPHIL # (test code = NT#) 4.15 K/mm3 2.0-7.6 N IMMATURE GRANULOCYTE # (test 0.03 x10 3/uL 0-0.03 N code = IG#) LYMPHOCYTE # (test code = LY#) 0.71 K/mm3 1.0-3.8 L MONOCYTE # (test code = MO#) 0.73 K/mm3 0.1-0.8 N EOSINOPHIL # (test code = EO#) 0.18 K/mm3 0.0-0.2 N BASOPHIL # (test code = BA#) 0.04 K/mm3 0.0-0.2 N NUCLEATED RBC # (test code = 0.00 K/mm3 0.0-0.1 N NRBC#) GLUCOSE BEDSIDE [id number] 03:45:00 Test Item Value Reference Range Interpretation Comments GLUCOSE BEDSIDE TESTING (test code 267 MG/DL 60-99 H = GLUBED) [id number] 00:33:00 Test Item Value Reference Range Interpretation Comments TROPONIN-I (test 2.760 NG/ML 0.012-0.033 HH CALLED TO Bert Quiles& code = TROPI) READBACK ON AT 0033 BY Cody Galeana BLOOD [id number] 22:46:00 Test Item Value Reference Range Interpretation Comments Culture Observations (test NO GROWTH AFTER 5 code = COB1) DAYS BLOOD [id number] 22:46:00 Test Item Value Reference Range Interpretation Comments Culture Observations (test NO GROWTH AFTER 5 code = COB1) DAYS LIPOPROTEIN LDL [id number] 20:40:00 Test Item Value Reference Range Interpretation Comments LIPOPROTEIN LDL DIRECT 55 mg/dL 100-129 L ===== (test code = LDLDIR) ======= ==Refe rence Interval: mg/dL mmol/L--------- ------ ------ ------ --Optimal <100 <2.6Near/abov e optimal 100-129 2.6-3.3Borderli ne High 130-159 3.4-4.1High 16 0-189 4.1-4.9Ve ry High >=190 >=4.9========= This LDL result is a direct measurement.=== ====== [id number] 20:40:00 Test Item Value Reference Range Interpretation Comments TROPONIN-I (test 2.720 NG/ML 0.012-0.033 HH CALLED TO Lazaro lFores& code = TROPI) READBACK ON AT 2021 BY Miko Kaufman LIPOPROTEIN LDL [id number] 20:22:00 Test Item Value Reference Range Interpretation Comments LIPOPROTEIN LDL DIRECT (test code = mg/dL 100-129 LDLDIR) [id number] 20:22:00 Test Item Value Reference Range Interpretation Comments TROPONIN-I (test 2.720 NG/ML 0.012-0.033 HH CALLED TO Lazaro Flores& code = TROPI) READBACK ON AT 2021 BY Miko Kaufman GLUCOSE BEDSIDE [id number] 20:00:00 Test Item Value Reference Range Interpretation Comments GLUCOSE BEDSIDE TESTING (test code 164 MG/DL 60-99 H = GLUBED) GLUCOSE BEDSIDE [id number] 17:30:00 Test Item Value Reference Range Interpretation Comments GLUCOSE BEDSIDE TESTING 218 MG/DL 60-99 H Noti fied Nurse~ (test code = GLUBED) HEPATITIS B CORE ANTIBODY,[id number] 12:54:00 Test Item Value Reference Range Interpretation Comments HEPATITIS B CORE AB NON-REACTIVE NON-REACTIVE TEST PER FORMED TOTAL (test code = AT:[employer] [id number]) [id number] [place] [id number] Michelet ROBERTS MD - XR CHEST 2 [id number] 08:31:00 [facility] 1950 Sex: M Patient Name: NIKOLAY SOTELO Unit No: [id number] EXAMS: CPT CODE: [id number] XR CHEST 2 [id number] EXAMINATION: Frontal and lateral chest radiographs INDICATION: Follow-up pulmonary opacities COMPARISON: Previous day LOCATION: S17 FINDINGS: Tunneled right dialysis catheter terminates over superior cavoatrial junction. Enlarged cardiac silhouette. Left greater than right interstitial and airspace opacities exhibit improvement in the right lung base and are otherwise unchanged. No definite pleural effusion or pneumothorax. IMPRESSION:Extensive bilateral airspace opacities, slightly improved in the right lung base. at 0831 Reported andsigned by: Niall Monroy MD CC: Jalyn Najera MD; Christoph Becerra MD Technologist: Jonathan Coello, RT(R) Transcrpt Date/Tm/Trnsp: 07/04/2020 (0831) [email or web address] Orig Print D/T: S: 07/04/2020 (0835) [facility] NAME: NIKOLAY SOTELO [id number] PHYS: [email or web address] - [place] [address] : 1950 AGE: 69 SEX: M LOC: ZBenjamin A PHONE #:[phone] EXAM DATE: 07/04/2020 STATUS: ADM IN FAX #: [phone] RADIOLOGY NO: PAGE 1 Signed ReportHEPATITIS B SURF AB, [id number] 07:15:00 Test Item Value Reference Range Interpretation Comments HEPATITIS B SURF AB, 0.0 mIU/mL ~~~~~~~ ~~~~~~~~~~~~~~~~ QUANT (test code = ~~~~~~~~~ ~~~~~~~~~~~~~~ HBSABQ) ~~~~~~~~~~~~~~I NTERPRET SANDRA DATA: <5.00 mIU/mL : Negative - P atient is considered t o be notimmune to in fection with HBV. >= 5. 00 mIU/mL and <12. 0 mIU/mL: Indeter minate - Unable todeterm ine if anti-HBs is pre sent at levels consiste nt withimmunity. P atient's immune status s hould be further assesse dby considering oth er clinical inform ation or retestinganothe r specimen drawn at a later time. >=1 2.0 mIU/mL: Positiv e - Anti-HBs detect ed at >10 mIU/mL.Cheryl ent is considered to b e immune to infection wi th HBV. Ithas not been determined what the clinical signif icance isfor values gr eater than >=12 mIU/m L, other than theindivid ual is considered to b e immune to HBV infection.~~~~~ ~~~~~~~~ ~~~~~~~~~~~~~~~ ~~~~~~~~ ~~~~~~~~~~~~~~~ ~~~~~~~~ ~ AB HEPATITIS B [id number] 07:15:00 Test Item Value Reference Range Interpretation Comments AB HEPATITIS B CORE (test code = NEGATIVE NONREACTIVE HBCAB) AG HEPATITIS B [id number] 06:56:00 Test Item Value Reference Range Interpretation Comments AG HEPATITIS B SURFACE (test code = NEGATIVE NONREACTIVE HBSAG) GLUCOSE BEDSIDE [id number] 06:22:00 Test Item Value Reference Range Interpretation Comments GLUCOSE BEDSIDE TESTING (test code 189 MG/DL 60-99 H = GLUBED) BASIC METABOLIC [id number] 06:22:00 Test Item Value Reference Range Interpretation Comments SODIUM (test code = 141 MMOL/L 137-145 N NA) POTASSIUM (test code = 4.1 MMOL/L 3.5-5.1 N K) CHLORIDE (test code = 107 MMOL/L 98-107 N CL) CARBON DIOXIDE (test 18 MMOL/L 22-30 L code = CO2) ANION GAP (test code = 20 MMOL/L 14-24 N GAP) GLUCOSE (test code = 202 MG/DL 74-106 H GLU) BLOOD UREA NITROGEN 93 MG/DL 9-20 H (test code = BUN) GLOMERULAR FILTRATION 10 Report ing units: RATE (test code = GFR) ml/mi n/1.73 m2 (Modified MDRD Formula)Referen ce Range: > or = 6 0 ml/min/1.73 m2 CREATININE (test code 5.60 MG/DL 0.66-1.25 H = CREAT) CALCIUM (test code = 8.1 MG/DL 8.4-10.2 L CA) HEPATIC FUNCTION [id number] 06:22:00 Test Item Value Reference Range Interpretation Comments TOTAL PROTEIN 6.9 G/DL 6.2-7.6 N [facility] Clinical Diagnostic (test code = has made us zayra re of PROT) newinformation regarding the potential i nterference ofEltrombopag (a bone marrow stimulan t used to treatthrombocyt onmenia and aplastic anemia ) with specific assays on the Vitros 5600 of which Total Protein is one of thoseassays per formed in our lab.Interfe rence testing perform ed at Orth[facility] determined that Eltrombopag does interfere with Vitros Total Protein asfollowsEltrom bopag Interference fo r Vitros Product Total Protein:======= Eltrombopag Max Observed A vg. BiasConcentrati on Concentration Concentration== ==== 2.5 mg/dl 6.0 g/dl +0.41 +0.34 3.5 mg/dl 6.0 g/dl +0.50 +0.45 5 mg/dl 6.0 g/dl +0.73 +0.65 2.5 mg/dl 8.0 g/dl +0.44 +0.41 3.5 mg/dl 8.0 g/dl +0.55 +0.52 5 mg/dl 8.0 g/dl +0.86 +0.77 ALBUMIN (test 3.5 G/DL 3.5-5.0 N code = ALB) BILIRUBIN TOTAL 0.4 MG/DL 0.2-1.3 N Eltrombopag Interference (test code = for Vitros Prod uct TBil, BILT) BuBc: Assa y Eltrombopag Analyte/ Max Observed Avg. Bias Concentrati on Concentration Concentration== ====TBil 7mg/dl T Raj/ 1.2mg/dl +0.23 mg.dl +0.20mg/dlBuBc 3.5mg/dl Bu/0.8mg/dl +0.25mg/dl +0 .24mg/dlBuBc 7 mg/dl Bu/14.2mg/dl +0.38mg/dl +0.25mg/dlBuBc 5mg/dl Bc/0mg/dl +0.25mg/dl +0 .15mg/dlBuBc 3.5mg/dl Bc/2.8mg/dl +0.25mg/dl +0.23mg/dl BILIRUBIN DIRECT 0.0 MG/DL 0.0-0.3 N Eltrombopag Interference (test code = for Vitros Prod uct TBil, BILD) BuBc: Assa y Eltrombopag Analyte/ Max Observed Avg. Bias Concentrati on Concentration Concentration== ====TBil 7mg/dl T Raj/ 1.2mg/dl +0.23 mg.dl +0.20mg/dlBuBc 3.5mg/dl Bu/0.8mg/dl +0.25mg/dl +0 .24mg/dlBuBc 7 mg/dl Bu/14.2mg/dl +0.38mg/dl +0.25mg/dlBuBc 5mg/dl Bc/0mg/dl +0.25mg/dl +0 .15mg/dlBuBc 3.5mg/dl Bc/2.8mg/dl +0.25mg/dl +0.23mg/dl SGOT/AST (test 29 UNITS/L 17-59 code = AST) SGPT/ALT (test 31 UNITS/L <50 code = ALT) ALKALINE 96 UNITS/L 38-126 PHOSPHATASE (test code = ALKP) [id number] 06:22:00 Test Item Value Reference Range Interpretation Comments PHOSPHOROUS (test code = PHOS) 5.5 MG/DL 2.5-4.5 H [id number] 06:22:00 Test Item Value Reference Range Interpretation Comments MAGNESIUM (test code = MAG) 2.4 MG/DL 1.6-2.3 H CBC W/AUTO [id number] 06:00:00 Test Item Value Reference Range Interpretation Comments WHITE BLOOD CELL (test code = 6.1 K/MM3 3.8-9.8 N WBC) RED BLOOD CELL (test code = 3.03 M/MM3 3.95-5.67 L RBC) HEMOGLOBIN (test code = HGB) 8.9 G/DL 12.4-16.7 L HEMATOCRIT (test code = HCT) 27.2 % 35.9-49.5 L MEAN CELL VOLUME (test code = 90 fL 81.7-96.1 N MCV) MEAN CELL HGB (test code = MCH) 29.4 pg 27.6-33.2 N MEAN CELL HGB CONCETRATION 32.7 % 32.9-35.5 L (test code = MCHC) RED CELL DISTRIBUTION WIDTH 14.8 % 12.1-15.2 N (test code = RDW) PLATELET COUNT (test code = 164 K/MM3 129-368 N PLT) MEAN PLATELET VOLUME (test code 11.7 fl 7.4-10.4 H = MPV) NEUTROPHIL % (test code = NT%) 82.4 % 43-75 H IMMATURE GRANULOCYTE % (test 0.5 % 0.0-2.0 N code = IG%) LYMPHOCYTE % (test code = LY%) 5.4 % 14-44 L MONOCYTE % (test code = MO%) 10.7 % 4-13 N EOSINOPHIL % (test code = EO%) 0.5 % 0-6 N BASOPHIL % (test code = BA%) 0.5 % 0-2 N NUCLEATED RBC % (test code = 0.0 % 0-1.0 N NRBC%) NEUTROPHIL # (test code = NT#) 5.02 K/mm3 2.0-7.6 N IMMATURE GRANULOCYTE # (test 0.03 x10 3/uL 0-0.03 N code = IG#) LYMPHOCYTE # (test code = LY#) 0.33 K/mm3 1.0-3.8 L MONOCYTE # (test code = MO#) 0.65 K/mm3 0.1-0.8 N EOSINOPHIL # (test code = EO#) 0.03 K/mm3 0.0-0.2 N BASOPHIL # (test code = BA#) 0.03 K/mm3 0.0-0.2 N NUCLEATED RBC # (test code = 0.00 K/mm3 0.0-0.1 N NRBC#) COMPREHENSIVE METABOLIC [id number] 20:45:00 Test Item Value Reference Range Interpretation Comments SODIUM (test code 141 MMOL/L 137-145 N = NA) POTASSIUM (test 3.9 MMOL/L 3.5-5.1 N code = K) CHLORIDE (test 105 MMOL/L 98-107 N code = CL) CARBON DIOXIDE 18 MMOL/L 22-30 L (test code = CO2) ANION GAP (test 22 MMOL/L 14-24 N code = GAP) GLUCOSE (test 216 MG/DL 74-106 H code = GLU) BLOOD UREA 93 MG/DL 9-20 H NITROGEN (test code = BUN) GLOMERULAR 9 Reporting units : FILTRATION RATE ml/min/1.73 m2 (Modified (test code = GFR) MDRD Formu la)Reference Range: > or = 6 0 ml/min/1.73 m2 CREATININE (test 5.90 MG/DL 0.66-1.25 H code = CREAT) TOTAL PROTEIN 7.6 G/DL 6.2-7.6 N [facility] Clinical Diagnostic (test code = has made us zayra re of PROT) newinformation regarding the potential i nterference ofEltrombopag (a bone marrow stimulan t used to treatthrombocyt onmenia and aplastic anemia ) with specific assays on the Vitros 5600 of which Total Protein is one of thoseassays per formed in our lab.Interfe rence testing perform ed at [facility] determined that Eltrombopag does interfere with Vitros Total Protein asfollowsEltrom bopag Interference fo r Vitros Product Total Protein:======= Eltrombopag Max Observed A vg. BiasConcentrati on Concentration Concentration== ==== 2.5 mg/dl 6.0 g/dl +0.41 +0.34 3.5 mg/dl 6.0 g/dl +0.50 +0.45 5 mg/dl 6.0 g/dl +0.73 +0.65 2.5 mg/dl 8.0 g/dl +0.44 +0.41 3.5 mg/dl 8.0 g/dl +0.55 +0.52 5 mg/dl 8.0 g/dl +0.86 +0.77 ALBUMIN (test 4.0 G/DL 3.5-5.0 N code = ALB) CALCIUM (test 8.6 MG/DL 8.4-10.2 N code = CA) BILIRUBIN TOTAL 0.4 MG/DL 0.2-1.3 N Eltrombopag Interference (test code = for Vitros Prod uct TBil, BILT) BuBc: Assa y Eltrombopag Analyte/ Max Observed Avg. Bias Concentrati on Concentration Concentration== ====TBil 7mg/dl T Raj/ 1.2mg/dl +0.23 mg.dl +0.20mg/dlBuBc 3.5mg/dl Bu/0.8mg/dl +0.25mg/dl +0 .24mg/dlBuBc 7 mg/dl Bu/14.2mg/dl +0.38mg/dl +0.25mg/dlBuBc 5mg/dl Bc/0mg/dl +0.25mg/dl +0 .15mg/dlBuBc 3.5mg/dl Bc/2.8mg/dl +0.25mg/dl +0.23mg/dl SGOT/AST (test 35 UNITS/L 17-59 N code = AST) SGPT/ALT (test 35 UNITS/L <50 code = ALT) ALKALINE 114 UNITS/L 38-126 N PHOSPHATASE (test code = ALKP) LIPID PROFILE (CORONARY RISK)2020-07-03 20:45:00 Test Item Value Reference Range Interpretation Comments TRIGLYCERIDES (test 141 MG/DL TRIGLYCE RIDES code = TRIG) REFERENCE RANGE:Normal: < 150 mg/dLBorderline High: 150-199 mg/dLHi gh: 200-499 mg/dLVe ry High: >=500 mg/ dL CHOLESTEROL (test code 107 MG/DL <200 = CHOL) HDL CHOLESTEROL (test 13 MG/DL 40-59 L code = HDL) LIPOPROTEIN LDL (test 58 MG/DL 0-99 N code = LDL) OPTIMAL........ .<100 mg/dLNEAR OPTIMAL/ABOVE OPTIMAL........ .100-12 9 mg/dL BORDERLINE HIGH.........13 0-159 mg/dL HIGH.........16 0-189 mg/dL VERY HIGH...... ...>/= 190 mg/dL [id number] 20:45:00 Test Item Value Reference Range Interpretation Comments MAGNESIUM (test code = MAG) 2.4 MG/DL 1.6-2.3 H COMPREHENSIVE METABOLIC [id number] 20:37:00 Test Item Value Reference Range Interpretation Comments SODIUM (test code 141 MMOL/L 137-145 N = NA) POTASSIUM (test 3.9 MMOL/L 3.5-5.1 N code = K) CHLORIDE (test 105 MMOL/L 98-107 N code = CL) CARBON DIOXIDE 18 MMOL/L 22-30 L (test code = CO2) ANION GAP (test 22 MMOL/L 14-24 N code = GAP) GLUCOSE (test 216 MG/DL 74-106 H code = GLU) BLOOD UREA 93 MG/DL 9-20 H NITROGEN (test code = BUN) GLOMERULAR 9 Reporting units : FILTRATION RATE ml/min/1.73 m2 (Modified (test code = GFR) MDRD Formu la)Reference Range: > or = 6 0 ml/min/1.73 m2 CREATININE (test 5.90 MG/DL 0.66-1.25 H code = CREAT) TOTAL PROTEIN 7.6 G/DL 6.2-7.6 N [facility] Clinical Diagnostic (test code = has made us zayra re of PROT) newinformation regarding the potential i nterference ofEltrombopag (a bone marrow stimulan t used to treatthrombocyt onmenia and aplastic anemia ) with specific assays on the Vitros 5600 of which Total Protein is one of thoseassays per formed in our lab.Interfe maddie testing perform ed at [facility] determined that Eltrombopag does interfere with Vitros Total Protein asfollowsEltrom bopag Interference fo r Vitros Product Total Protein:======= Eltrombopag Max Observed A vg. BiasConcentrati on Concentration Concentration== ==== 2.5 mg/dl 6.0 g/dl +0.41 +0.34 3.5 mg/dl 6.0 g/dl +0.50 +0.45 5 mg/dl 6.0 g/dl +0.73 +0.65 2.5 mg/dl 8.0 g/dl +0.44 +0.41 3.5 mg/dl 8.0 g/dl +0.55 +0.52 5 mg/dl 8.0 g/dl +0.86 +0.77 ALBUMIN (test 4.0 G/DL 3.5-5.0 N code = ALB) CALCIUM (test 8.6 MG/DL 8.4-10.2 N code = CA) BILIRUBIN TOTAL 0.4 MG/DL 0.2-1.3 N Eltrombopag Interference (test code = for Vitros Prod uct TBil, BILT) BuBc: Assa y Eltrombopag Analyte/ Max Observed Avg. Bias Concentrati on Concentration Concentration== ====TBil 7mg/dl T Raj/ 1.2mg/dl +0.23 mg.dl +0.20mg/dlBuBc 3.5mg/dl Bu/0.8mg/dl +0.25mg/dl +0 .24mg/dlBuBc 7 mg/dl Bu/14.2mg/dl +0.38mg/dl +0.25mg/dlBuBc 5mg/dl Bc/0mg/dl +0.25mg/dl +0 .15mg/dlBuBc 3.5mg/dl Bc/2.8mg/dl +0.25mg/dl +0.23mg/dl SGOT/AST (test 35 UNITS/L 17-59 N code = AST) SGPT/ALT (test 35 UNITS/L <50 code = ALT) ALKALINE 114 UNITS/L 38-126 N PHOSPHATASE (test code = ALKP) LIPID PROFILE (CORONARY RISK)2020-07-03 20:37:00 Test Item Value Reference Range Interpretation Comments TRIGLYCERIDES (test 141 MG/DL TRIGLYCE RIDES code = TRIG) REFERENCE RANGE:Normal: < 150 mg/dLBorderline High: 150-199 mg/dLHi gh: 200-499 mg/dLVe ry High: >=500 mg/ dL CHOLESTEROL (test code 107 MG/DL <200 = CHOL) HDL CHOLESTEROL (test 13 MG/DL 40-59 L code = HDL) LIPOPROTEIN LDL (test MG/DL 0-99 code = LDL) [id number] 20:37:00 Test Item Value Reference Range Interpretation Comments MAGNESIUM (test code = MAG) 2.4 MG/DL 1.6-2.3 H PROTHROMBIN [id number] 20:31:00 Test Item Value Reference Range Interpretation Comments PROTHROMBIN TIME PATIENT 16.7 9.5-12.7 H (test code = PTP) INTERNATIONAL NORMAL RATIO 1.5 0.86-1.14 H T he INR is to be used (test code = INR) only for m onitoring oral anticoagulantth erapy. INDICATION INR VALUE ------- ------- -----1. Prophylaxis, d eep venous thrombos is, including high risk surgery. 2.0 - 3.0 2. Prophylaxis, de ep venous thrombos is, hip surgery, tr eatment for deep venous thrombosis or pulmonary preve ntion of systemic embolism in pat ients with valvula r heart disease, atrial fibrillation, tissue heart va lve, or acute myocardia l infarction. 2.0 - 3.0 3. Mechanical pros thesis heart valves, recurrent syste bonny embolism. 3.0 - 4.5 UNABLE TO DRAW BLOOD, REASON: HASN'T MADE IT HERE YET.COMING FORM OTHER HOSPITALNOTIFIED PATIENT CARE STAFF: NICOLE 07/03/20 AT 1457 BY Andrew Landry TO DRAW BLOOD, REASON: PT NOT IN ROOMNOTIFIED PATIENT CARE STAFF: [facility] 07/03/20 AT 09 BY Domingo WangT [id number] 20:31:00 Test Item Value Reference Range Interpretation Comments PTT ACTIVATED (test code = APTT) 38.0 SECONDS 25.1-36.5 H UNABLE TO DRAW BLOOD, REASON: HASN'T MADE IT HERE YET.COMING FORM OTHER HOSPITALNOTIFIED PATIENT CARE STAFF: [facility] 07/03/20 AT 145 BY Andrew Landry TO DRAW BLOOD, REASON: PT NOT IN ROOMNOTIFIED PATIENT CARE STAFF: [facility] 07/03/20 AT 901 BY Preston WangLT RESPONSE TO PLAVIX 2020-07-03 20:31:00 Test Item Value Reference Range Interpretation Comments PLT RESPONSE TO 390 PRU 194-418 N P2Y12 Result s PLAVIX (test code = Interpre tation: Test PLAVRES) results are in P2Y12 Reaction Units (PRU). Pre-Drug Refe rence Range is 194-41 8. Pre-drug platel et function estima yuri the total possible platelet aggregation independent of P2Y12 inhibitor drugs . Values <194 cou ld be due to low HCT, low platelet count, or p resence of IIb/IIIa inhibi tors. Post-Drug Resu lts: Lower PRU levels are associated with expec pal antiplatelet ef fect. Values may be b elow the stated refe rence range. Studies show that patients wi th <230 PRU had fewer a dverse events. UNABLE TO DRAW BLOOD, REASON: HASN'T MADE IT HERE YET.COMING FORM OTHER HOSPITALNOTIFIED PATIENT CARE STAFF: [facility] 07/03/20 AT 1457 BY Andrew Landry TO DRAW BLOOD, REASON: PT NOT IN ROOMNOTIFIED PATIENT CARE STAFF: [facility] 07/03/20 AT 09 BY Preston WangROTHROMBIN [id number] 20:28:00 Test Item Value Reference Range Interpretation Comments PROTHROMBIN TIME PATIENT 16.7 9.5-12.7 H (test code = PTP) INTERNATIONAL NORMAL RATIO 1.5 0.86-1.14 H T he INR is to be used (test code = INR) only for m onitoring oral anticoagulantth erapy. INDICATION INR VALUE ------- ------- -----1. Prophylaxis, d eep venous thrombos is, including high risk surgery. 2.0 - 3.0 2. Prophylaxis, de ep venous thrombos is, hip surgery, tr eatment for deep venous thrombosis or pulmonary preve ntion of systemic embolism in pat ients with valvula r heart disease, atrial fibrillation, tissue heart va lve, or acute myocardia l infarction. 2.0 - 3.0 3. Mechanical pros thesis heart valves, recurrent syste bonny embolism. 3.0 - 4.5 UNABLE TO DRAW BLOOD, REASON: HASN'T MADE IT HERE YET.COMING FORM OTHER HOSPITALNOTIFIED PATIENT CARE STAFF: [facility] 07/03/20 AT 1457 BY Andrew Landry TO DRAW BLOOD, REASON: PT NOT IN ROOMNOTIFIED PATIENT CARE STAFF: [facility] 07/03/20 AT 0902 BY Domingo WangT [id number] 20:28:00 Test Item Value Reference Range Interpretation Comments PTT ACTIVATED (test code = APTT) 38.0 SECONDS 25.1-36.5 H UNABLE TO DRAW BLOOD, REASON: HASN'T MADE IT HERE YET.COMING FORM OTHER HOSPITALNOTIFIED PATIENT CARE STAFF: [facility] 07/03/20 AT 1457 BY Andrew Landry TO DRAW BLOOD, REASON: PT NOT IN ROOMNOTIFIED PATIENT CARE STAFF: [facility] 07/03/20 AT 0902 BY Dai Wang RESPONSE TO PLAVIX 2020-07-03 20:28:00 Test Item Value Reference Range Interpretation Comments PLT RESPONSE TO PLAVIX (test code = PRU 194-418 PLAVRES) UNABLE TO DRAW BLOOD, REASON: HASN'T MADE IT HERE YET.COMING FORM OTHER HOSPITALNOTIFIED PATIENT CARE STAFF: [facility] 07/03/20 AT 1457 BY Andrew Landry TO DRAW BLOOD, REASON: PT NOT IN ROOMNOTIFIED PATIENT CARE STAFF: NICOLE 07/03/20 AT 0902 BY Ivelisse Wang W/AUTO [id number] 20:18:00 Test Item Value Reference Range Interpretation Comments WHITE BLOOD CELL (test code = 6.7 K/MM3 3.8-9.8 N WBC) RED BLOOD CELL (test code = 3.51 M/MM3 3.95-5.67 L RBC) HEMOGLOBIN (test code = HGB) 10.1 G/DL 12.4-16.7 L HEMATOCRIT (test code = HCT) 32.4 % 35.9-49.5 L MEAN CELL VOLUME (test code = 92 fL 81.7-96.1 N MCV) MEAN CELL HGB (test code = MCH) 28.8 pg 27.6-33.2 N MEAN CELL HGB CONCETRATION 31.2 % 32.9-35.5 L (test code = MCHC) RED CELL DISTRIBUTION WIDTH 14.6 % 12.1-15.2 N (test code = RDW) PLATELET COUNT (test code = 158 K/MM3 129-368 N PLT) MEAN PLATELET VOLUME (test code 11.3 fl 7.4-10.4 H = MPV) NEUTROPHIL % (test code = NT%) 84.4 % 43-75 H IMMATURE GRANULOCYTE % (test 0.4 % 0.0-2.0 N code = IG%) LYMPHOCYTE % (test code = LY%) 3.9 % 14-44 L MONOCYTE % (test code = MO%) 10.7 % 4-13 N EOSINOPHIL % (test code = EO%) 0.3 % 0-6 N BASOPHIL % (test code = BA%) 0.3 % 0-2 N NUCLEATED RBC % (test code = 0.0 % 0-1.0 N NRBC%) NEUTROPHIL # (test code = NT#) 5.65 K/mm3 2.0-7.6 N IMMATURE GRANULOCYTE # (test 0.03 x10 3/uL 0-0.03 N code = IG#) LYMPHOCYTE # (test code = LY#) 0.26 K/mm3 1.0-3.8 L MONOCYTE # (test code = MO#) 0.72 K/mm3 0.1-0.8 N EOSINOPHIL # (test code = EO#) 0.02 K/mm3 0.0-0.2 N BASOPHIL # (test code = BA#) 0.02 K/mm3 0.0-0.2 N NUCLEATED RBC # (test code = 0.00 K/mm3 0.0-0.1 N NRBC#) - XR CHEST [id number] 19:08:00 [facility] 1950 Sex: M Patient Name: NIKOLAY SOTELO Unit No: [id number] EXAMS: CPT CODE: [id number] XR CHEST [id number] EXAM: XR Chest 1 View INDICATION: DYSPNEA LOCATION CODE: H50 COMPARISON: None available. TECHNIQUE: Frontal view of the chest was obtained. FINDINGS: Right internal jugular central venous catheter has its tip at the lower superior vena cava. There are bilateral alveolar airspace opacities. Pulmonary vascular congestion is noted. There is no pleural effusion or pneumothorax. The cardiomediastinal silhouette is unremarkable. No acute osseous abnormality is identified. IMPRESSION: 1. Pulmonary vascular congestion with bilateral alveolar airspace opacities concerning for pulmonary edema, however cannot exclude poss ible superimposed pneumonia. 2. Right internal jugular central venous catheter with tip at the lower superior vena cava. at 1908 Reported and signed by: Seema Thacker MD CC: Jalyn Najera MD; Praveena Mora NP Technologist: Lisa Rothman RT(R) Transcrpt Date/Tm/Trnsp: 07/03/2020 (1907) [id number] Orig Print D/T: S: 07/03/2020 (1910) [facility] NAME: NIKOLAY SOTELO [address] PHYS: DONGLORETTA [place] [address] : 1950 AGE: 69 SEX: M : Cynthia [place] PHONE #: [phone] EXAM DATE: 07/03/2020 STATUS: ADM IN FAX #: [phone] RADIOLOGY NO: PAGE 1 Signed ReportGLUCOMETER GLUCOSE- LAB USE [id number] 15:37:00 Test Item Value Reference Range Interpretation Comments GLUCOMETER (test 183 mg/dL 70-100 H Result Not code = GMG) ConfirmedMeter ID: [id number] tor: [address] GLUCOMETER GLUCOSE- LAB USE [id number] 12:04:00 Test Item Value Reference Range Interpretation Comments GLUCOMETER (test code = 197 mg/dL 70-100 H Mete r ID: GMG) [id number] tor: [id number] [address] [place] GLUCOMETER GLUCOSE- LAB USE [id number] 10:57:00 Test Item Value Reference Range Interpretation Comments GLUCOMETER (test code = 195 mg/dL 70-100 H Mete r ID: GMG) [id number] tor: [address] [id number] 08:01:00 Test Item Value Reference Range Interpretation Comments TRANSFERRIN (test code 126 mg/dL 188-341 L TEST PERFORMED = [id number]) AT:[id number] [facility] [place] [place] [address] LAURA ROBERTS MD HEPATITIS C [id number] 07:28:00 Test Item Value Reference Range Interpretation Comments HCAB (test code = HCAB) NON-REACTIVE NON-REACTIVE HEPATITIS B SURFACE [id number] 07:00:00 Test Item Value Reference Range Interpretation Comments HBSAG (test code = HBSAG) NON-REACTIVE NON-REACTIVE HEPATITIS B SURFACE [id number] 06:53:00 Test Item Value Reference Range Interpretation Comments HBSAB (test code = HBSAB) NON-REACTIVE REACTIVE A COMPREHENSIVE METABOLIC [id number] 06:16:00 Test Item Value Reference Range Interpretation Comments GLUCOSE (test code 139 mg/dL 75-100 H = 06D) SODIUM (test code 142 mmol/L 136-145 = 01A) POTASSIUM (test 3.8 mmol/L 3.6-5.1 code = 01B) CHLORIDE (test 107 mmol/L 98-107 code = 04A) CO2 (test code = 23 mmol/L 22-32 02A) ANION GAP (test 15.8 mmol/L code = ANG) BUN (test code = 99 mg/dL 7-18 H 05D) CREATININE (test 5.6 mg/dL 0.7-1.3 H code = 03E) GFR (test code = 9 mL/min/1.73m\\S\\2 See_Comment L [Aut omated GFR) message] The system which generated this result transmit pal reference range : >=90. The reference range was not used to interpret this result as normal/abnormal . GFR 11 See_Comment L [Automated STATELESS (test mL/min/1.73m\\S\\2 message] The code = GFRAA) system which generated this result transmit pal reference range : >=90. The reference range was not used to interpret this result as normal/abnormal . EGFR (test code = eGFR BY EGFR) CKD-EPI CALCULATION IS NOT RECOMMENDED FOR PATIENTS UNDER 18 YEARS OF AGE. BUN/CREA (test 18 12-20 code = BCR) CALCIUM (test code 7.9 mg/dL 8.3-9.5 L = 09D) BILI TOTAL (test 0.5 mg/dL 0.2-1.0 code = 11A) PROTEIN (test code 6.7 g/dL 6.4-8.2 = 07D) ALBUMIN (test code 2.5 g/dL 3.5-4.8 L = 08D) GLOBULIN (test 4.2 g/dL 1.5-3.8 H code = GLB) ALB/GLOB (test 0.6 1.0-2.6 L code = AGRR) ALK PHOS (test 99 IU/L 42-121 code = 35A) AST (test code = 28 IU/L See_Comment [Automated 30A) message] The system which generated this result transmit pal reference range : <=42. The reference range was not used to interpret this result as normal/abnormal . ALT (test code = 36 IU/L See_Comment [Automated 31A) message] The system which generated this result transmit pal reference range : <=78. The reference range was not used to interpret this result as normal/abnormal . CBC (INCLUDES AUTOMATED DIFFERENTIAL)2020-07-03 06:02:00 Test Item Value Reference Range Interpretation Comments WBC (test code = WBC) 5.2 10\\S\\3/uL 4.5-11.0 RBC (test code = RBC) 2.83 10\\S\\6/uL 3.80-5.80 L HGB (test code = HBG) 8.2 g/dL 14.0-18.0 L HCT (test code = HCT) 24.7 % 35.0-46.0 LL MCV (test code = MCV) 87.3 fL 80.0-94.0 MCH (test code = MCH) 29.0 pg 27.0-31.0 MCHC (test code = MCHC) 33.2 g/dL 32.0-36.0 RDW (test code = RDW) 14.4 % 11.5-14.5 PLT (test code = PLT) 150 10\\S\\3/uL 130-400 MPV (test code = MPV) 11.9 fL 9.4-12.4 NEUTROP # (test code = NE#) 4.1 10\\S\\3/uL 2.0-8.0 LYMPH # (test code = LY#) 0.5 10\\S\\3/uL 1.2-4.0 L MONOCYTE # (test code = MO#) 0.6 10\\S\\3/uL 0.0-1.1 EOSINOPH # (test code = EO#) 0.0 10\\S\\3/uL 0.0-0.7 BASOPHIL # (test code = BA#) 0.0 10\\S\\3/uL 0.0-0.3 IG # (test code = IG#) 0.02 10\\S\\3/uL 0.00-0.06 NRBC # (test code = NRBC#) 0.00 10\\S\\3/uL 0.00-0.01 NEUTROPH % (test code = NE%) 78.5 % 35.0-73.0 H LYMPH % (test code = LY%) 9.0 % 20.0-55.0 L MONO % (test code = MO%) 11.1 % 2.5-10.0 H EOSINOPH % (test code = EO%) 0.6 % 0.0-5.0 BASOPHIL % (test code = BA%) 0.4 % 0.0-2.0 IG % (test code = IG%) 0.4 % 0.0-0.8 NRBC% (test code = NRBC%) 0.0 % 0.0-0.2 MANDIFF (test code = MDIFF) NO NO RBC MORPH (test code = RBCMOR) NORMAL GLUCOMETER GLUCOSE- LAB USE [id number] 04:12:00 Test Item Value Reference Range Interpretation Comments GLUCOMETER (test 157 mg/dL 70-100 H Result Not code = GMG) ConfirmedMeter ID: [id number] tor: 1060 [employer] GLUCOMETER GLUCOSE- LAB USE [id number] 19:38:00 Test Item Value Reference Range Interpretation Comments GLUCOMETER (test 196 mg/dL 70-100 H Result Not code = GMG) ConfirmedMeter ID: [id number] tor: 1060 PRABHAKAR GUY GLUCOMETER GLUCOSE- LAB USE [id number] 16:24:00 Test Item Value Reference Range Interpretation Comments GLUCOMETER (test 126 mg/dL 70-100 H Result Not code = GMG) ConfirmedMeter ID: [id number] tor: 9358 [employer]ENT [employer] N GLUCOMETER GLUCOSE- LAB USE [id number] 11:17:00 Test Item Value Reference Range Interpretation Comments GLUCOMETER (test 194 mg/dL 70-100 H Result Not code = GMG) ConfirmedMeter ID: [id number] tor: 9358 BRETN [employer] Networks N GLUCOMETER GLUCOSE- LAB USE [id number] 08:58:00 Test Item Value Reference Range Interpretation Comments GLUCOMETER (test code = 171 mg/dL 70-100 H Mete r ID: GMG) [id number] tor: [id number] VASILIY GO NZALEZ OCCULT [id number] 08:11:00 Test Item Value Reference Range Interpretation Comments Direct Exam (test code NEGATIVE FOR OCCULT = DE1) BLOOD COMPREHENSIVE METABOLIC [id number] 06:11:00 Test Item Value Reference Range Interpretation Comments GLUCOSE (test code 94 mg/dL 75-100 = 06D) SODIUM (test code 141 mmol/L 136-145 = 01A) POTASSIUM (test 3.7 mmol/L 3.6-5.1 code = 01B) CHLORIDE (test 108 mmol/L 98-107 H code = 04A) CO2 (test code = 21 mmol/L 22-32 L 02A) ANION GAP (test 15.7 mmol/L code = ANG) BUN (test code = 102 mg/dL 7-18 H 05D) CREATININE (test 5.8 mg/dL 0.7-1.3 H code = 03E) GFR (test code = 9 mL/min/1.73m\\S\\2 See_Comment L [Aut omated GFR) message] The system which generated this result transmit pal reference range : >=90. The reference range was not used to interpret this result as normal/abnormal . GFR 10 See_Comment L [Automated STATELESS (test mL/min/1.73m\\S\\2 message] The code = GFRAA) system which generated this result transmit pal reference range : >=90. The reference range was not used to interpret this result as normal/abnormal . EGFR (test code = eGFR BY EGFR) CKD-EPI CALCULATION IS NOT RECOMMENDED FOR PATIENTS UNDER 18 YEARS OF AGE. BUN/CREA (test 18 12-20 code = BCR) CALCIUM (test code 8.0 mg/dL 8.3-9.5 L = 09D) BILI TOTAL (test 0.4 mg/dL 0.2-1.0 code = 11A) PROTEIN (test code 6.9 g/dL 6.4-8.2 = 07D) ALBUMIN (test code 2.7 g/dL 3.5-4.8 L = 08D) GLOBULIN (test 4.2 g/dL 1.5-3.8 H code = GLB) ALB/GLOB (test 0.6 1.0-2.6 L code = AGRR) ALK PHOS (test 87 IU/L 42-121 code = 35A) AST (test code = 26 IU/L See_Comment [Automated 30A) message] The system which generated this result transmit pal reference range : <=42. The reference range was not used to interpret this result as normal/abnormal . ALT (test code = 27 IU/L See_Comment [Automated 31A) message] The system which generated this result transmit pal reference range : <=78. The reference range was not used to interpret this result as normal/abnormal . CBC (INCLUDES AUTOMATED DIFFERENTIAL)2020-07-02 05:52:00 Test Item Value Reference Range Interpretation Comments WBC (test code = WBC) 5.8 10\\S\\3/uL 4.5-11.0 RBC (test code = RBC) 2.98 10\\S\\6/uL 3.80-5.80 L HGB (test code = HBG) 8.5 g/dL 14.0-18.0 L HCT (test code = HCT) 25.8 % 35.0-46.0 L MCV (test code = MCV) 86.6 fL 80.0-94.0 MCH (test code = MCH) 28.5 pg 27.0-31.0 MCHC (test code = MCHC) 32.9 g/dL 32.0-36.0 RDW (test code = RDW) 14.4 % 11.5-14.5 PLT (test code = PLT) 146 10\\S\\3/uL 130-400 MPV (test code = MPV) 12.2 fL 9.4-12.4 NEUTROP # (test code = NE#) 4.6 10\\S\\3/uL 2.0-8.0 LYMPH # (test code = LY#) 0.6 10\\S\\3/uL 1.2-4.0 L MONOCYTE # (test code = MO#) 0.6 10\\S\\3/uL 0.0-1.1 EOSINOPH # (test code = EO#) 0.0 10\\S\\3/uL 0.0-0.7 BASOPHIL # (test code = BA#) 0.0 10\\S\\3/uL 0.0-0.3 IG # (test code = IG#) 0.03 10\\S\\3/uL 0.00-0.06 NRBC # (test code = NRBC#) 0.00 10\\S\\3/uL 0.00-0.01 NEUTROPH % (test code = NE%) 79.2 % 35.0-73.0 H LYMPH % (test code = LY%) 10.3 % 20.0-55.0 L MONO % (test code = MO%) 9.6 % 2.5-10.0 EOSINOPH % (test code = EO%) 0.2 % 0.0-5.0 BASOPHIL % (test code = BA%) 0.2 % 0.0-2.0 IG % (test code = IG%) 0.5 % 0.0-0.8 NRBC% (test code = NRBC%) 0.0 % 0.0-0.2 MANDIFF (test code = MDIFF) NO NO RBC MORPH (test code = RBCMOR) NORMAL GLUCOMETER GLUCOSE- LAB USE [id number] 20:12:00 Test Item Value Reference Range Interpretation Comments GLUCOMETER (test code = 166 mg/dL 70-100 H Mete r ID: GMG) [id number] tor: [id number] MELINA SCHAEFFER GLUCOMETER GLUCOSE- LAB USE [id number] 16:13:00 Test Item Value Reference Range Interpretation Comments GLUCOMETER (test 217 mg/dL 70-100 H Result Not code = GMG) ConfirmedMeter ID: [id number] tor: [id number] DICKIN[facility] SINAIFL N GLUCOMETER GLUCOSE- LAB USE [id number] 11:40:00 Test Item Value Reference Range Interpretation Comments GLUCOMETER (test 360 mg/dL 70-100 H Result Not code = GMG) ConfirmedMeter ID: [id number] tor: [id number] [facility] N GLUCOMETER GLUCOSE- LAB USE [id number] 06:26:00 Test Item Value Reference Range Interpretation Comments GLUCOMETER (test code = 181 mg/dL 70-100 H Mete r ID: GMG) [id number] tor: [id number] KAIT CARRERO BASIC METABOLIC [id number] 05:05:00 Test Item Value Reference Range Interpretation Comments GLUCOSE (test code 170 mg/dL 75-100 H = 06D) SODIUM (test code 140 mmol/L 136-145 = 01A) POTASSIUM (test 4.0 mmol/L 3.6-5.1 code = 01B) CHLORIDE (test 107 mmol/L 98-107 code = 04A) CO2 (test code = 22 mmol/L 22-32 02A) ANION GAP (test 15.0 mmol/L code = ANG) BUN (test code = 98 mg/dL 7-18 H 05D) CREATININE (test 5.8 mg/dL 0.7-1.3 H code = 03E) GFR (test code = 9 mL/min/1.73m\\S\\2 See_Comment L [Aut omated GFR) message] The system which generated this result transmit pal reference range : >=90. The reference range was not used to interpret this result as normal/abnormal . GFR 10 See_Comment L [Automated STATELESS (test mL/min/1.73m\\S\\2 message] The code = GFRAA) system which generated this result transmit pal reference range : >=90. The reference range was not used to interpret this result as normal/abnormal . EGFR (test code = eGFR BY EGFR) CKD-EPI CALCULATION IS NOT RECOMMENDED FOR PATIENTS UNDER 18 YEARS OF AGE. BUN/CREA (test 17 -20 code = BCR) CALCIUM (test code 7.9 mg/dL 8.3-9.5 L = 09D) CBC (INCLUDES AUTOMATED DIFFERENTIAL)2020-07-01 04:55:00 Test Item Value Reference Range Interpretation Comments WBC (test code = WBC) 9.5 10\\S\\3/uL 4.5-11.0 RBC (test code = RBC) 2.84 10\\S\\6/uL 3.80-5.80 L HGB (test code = HBG) 8.2 g/dL 14.0-18.0 L HCT (test code = HCT) 24.5 % 35.0-46.0 LL MCV (test code = MCV) 86.3 fL 80.0-94.0 MCH (test code = MCH) 28.9 pg 27.0-31.0 MCHC (test code = MCHC) 33.5 g/dL 32.0-36.0 RDW (test code = RDW) 14.6 % 11.5-14.5 H PLT (test code = PLT) 140 10\\S\\3/uL 130-400 MPV (test code = MPV) 12.5 fL 9.4-12.4 H NEUTROP # (test code = NE#) 8.1 10\\S\\3/uL 2.0-8.0 H LYMPH # (test code = LY#) 0.5 10\\S\\3/uL 1.2-4.0 L MONOCYTE # (test code = MO#) 0.9 10\\S\\3/uL 0.0-1.1 EOSINOPH # (test code = EO#) 0.0 10\\S\\3/uL 0.0-0.7 BASOPHIL # (test code = BA#) 0.0 10\\S\\3/uL 0.0-0.3 IG # (test code = IG#) 0.05 10\\S\\3/uL 0.00-0.06 NRBC # (test code = NRBC#) 0.00 10\\S\\3/uL 0.00-0.01 NEUTROPH % (test code = NE%) 84.6 % 35.0-73.0 H LYMPH % (test code = LY%) 5.6 % 20.0-55.0 L MONO % (test code = MO%) 9.0 % 2.5-10.0 EOSINOPH % (test code = EO%) 0.0 % 0.0-5.0 BASOPHIL % (test code = BA%) 0.3 % 0.0-2.0 IG % (test code = IG%) 0.5 % 0.0-0.8 NRBC% (test code = NRBC%) 0.0 % 0.0-0.2 MANDIFF (test code = MDIFF) NO NO RBC MORPH (test code = RBCMOR) NORMAL GLUCOMETER GLUCOSE- LAB USE [id number] 19:53:00 Test Item Value Reference Range Interpretation Comments GLUCOMETER (test 215 mg/dL 70-100 H Result Not code = GMG) ConfirmedMeter ID: [id number] tor: [id number] KAIT CARRERO GLUCOMETER GLUCOSE- LAB USE [id number] 16:02:00 Test Item Value Reference Range Interpretation Comments GLUCOMETER (test code = 276 mg/dL 70-100 H Mete r ID: GMG) [id number] tor: [id number] LUIS RAJU GLUCOMETER GLUCOSE- LAB USE [id number] 11:55:00 Test Item Value Reference Range Interpretation Comments GLUCOMETER (test 195 mg/dL 70-100 H Result Not code = GMG) ConfirmedMeter ID: [id number] tor: [id number] LUIS RAJU CREATININE RANDOM [id number] 10:00:00 Test Item Value Reference Range Interpretation Comments CREA RAND (test code 77.5 mg/dL = CREAR) NRR (test code = * NO REFRENCE RANGE NRR) AVAILABLE FOR RANDOM SPECIMEN* PROTEIN URINE [id number] 09:47:00 Test Item Value Reference Range Interpretation Comments PROT RAND (test code 129 mg/dL = ME) NRR (test code = * NO REFRENCE RANGE NRR) AVAILABLE FOR RANDOM SPECIMEN* PARTHYROID HORMONE (INTACT)2020-06-30 08:07:00 Test Item Value Reference Range Interpretation Comments PTH INTACT (test code = A85) 469.3 pg/mL 18.4-80.1 H BASIC METABOLIC [id number] 06:46:00 Test Item Value Reference Range Interpretation Comments GLUCOSE (test code 73 mg/dL 75-100 L = 06D) SODIUM (test code 143 mmol/L 136-145 = 01A) POTASSIUM (test 3.9 mmol/L 3.6-5.1 code = 01B) CHLORIDE (test 108 mmol/L 98-107 H code = 04A) CO2 (test code = 21 mmol/L 22-32 L 02A) ANION GAP (test 17.9 mmol/L code = ANG) BUN (test code = 93 mg/dL 7-18 H 05D) CREATININE (test 5.8 mg/dL 0.7-1.3 H code = 03E) GFR (test code = 9 mL/min/1.73m\\S\\2 See_Comment L [Aut omated GFR) message] The system which generated this result transmit pal reference range : >=90. The reference range was not used to interpret this result as normal/abnormal . GFR 10 See_Comment L [Automated STATELESS (test mL/min/1.73m\\S\\2 message] The code = GFRAA) system which generated this result transmit pal reference range : >=90. The reference range was not used to interpret this result as normal/abnormal . EGFR (test code = eGFR BY EGFR) CKD-EPI CALCULATION IS NOT RECOMMENDED FOR PATIENTS UNDER 18 YEARS OF AGE. BUN/CREA (test 16 1220 code = BCR) CALCIUM (test code 8.3 mg/dL 8.3-9.5 = 09D) VITAMIN D TOTAL 25 (OH)2020-06-30 06:45:00 Test Item Value Reference Range Interpretation Comments VITAMIN D 25(OH) (test code = VD) 17.4 ng/mL 30.0-100.0 L THYROID PANEL/SCREEN (TSH)2020-06-30 06:45:00 Test Item Value Reference Range Interpretation Comments TSH (test code = A57) 1.350 uIU/mL 0.358-3.740 GLUCOMETER GLUCOSE- LAB USE [id number] 06:16:00 Test Item Value Reference Range Interpretation Comments GLUCOMETER (test 103 mg/dL 70-100 H Result Not code = GMG) ConfirmedMeter ID: [id number] tor: [id number] MELINA SCHAEFFER B12 [id number] 05:50:00 Test Item Value Reference Range Interpretation Comments VIT B12 (test code = A60) 860.0 pg/mL 180.0-914.0 IRON/TIBC/IRON [id number] 05:50:00 Test Item Value Reference Range Interpretation Comments IRON (test code = 46B) 29 ug/dL 65-175 L TIBC (test code = 79B) 159 ug/dL 250-400 L FE% SAT (test code = ISAT) 18.2 % 20.0-50.0 L PHOSPHORUS (P04)2020-06-30 05:50:00 Test Item Value Reference Range Interpretation Comments PHOSPHORUS (test code = 43D) 5.2 mg/dL 2.7-4.6 H [id number] 05:27:00 Test Item Value Reference Range Interpretation Comments FERRITIN (test code = A19) 580.6 ng/mL 26.0-388.0 H [id number] 05:20:00 Test Item Value Reference Range Interpretation Comments ALBUMIN (test code = 08D) 3.0 g/dL 3.5-4.8 L [id number] 05:20:00 Test Item Value Reference Range Interpretation Comments MAGNESIUM (test code = 48A) 2.0 mg/dL 1.8-2.4 GLUCOMETER GLUCOSE- LAB USE [id number] 19:36:00 Test Item Value Reference Range Interpretation Comments GLUCOMETER (test code = 181 mg/dL 70-100 H Mete r ID: GMG) [id number] tor: [id number] MELINA SCHAEFFER GLUCOMETER GLUCOSE- LAB USE [id number] 15:49:00 Test Item Value Reference Range Interpretation Comments GLUCOMETER (test code 363 mg/dL 70-100 H CLEANE D METERMeter ID: = GMG) [id number] tor: 9916 [facility] URINE [id number] 13:23:00 Test Item Value Reference Range Interpretation Comments Isolate 1 (test code = Proteus mirabilis A ISO1) ampicillin (test code = am) S piperacillin/tazobactam S (test code = tzp) cefazolin (test code = cz) S ceftazidime (test code = S vipul) ceftriaxone1 (test code = S ctr) cefepime (test code = fep) S aztreonam (test code = azm) S ertapenem (test code = etp) S meropenem (test code = mem) S gentamicin (test code = gm) S tobramycin (test code = S tob) levofloxacin (test code = R lev) nitrofurantoin (test code = R ftn) trimethoprim/sulfamethoxazo R le (test code = sxt) GLUCOMETER GLUCOSE- LAB USE [id number] 11:17:00 Test Item Value Reference Range Interpretation Comments GLUCOMETER (test code 438 mg/dL 70-100 H CLEANE D METERMeter ID: = GMG) [id number] tor: 9916 [facility] COMPREHENSIVE METABOLIC [id number] 10:11:00 Test Item Value Reference Range Interpretation Comments GLUCOSE (test code 367 mg/dL 75-100 H = 06D) SODIUM (test code 141 mmol/L 136-145 = 01A) POTASSIUM (test 4.3 mmol/L 3.6-5.1 code = 01B) CHLORIDE (test 107 mmol/L 98-107 code = 04A) CO2 (test code = 13 mmol/L 22-32 L 02A) ANION GAP (test 25.3 mmol/L code = ANG) BUN (test code = 78 mg/dL 7-18 H 05D) CREATININE (test 5.6 mg/dL 0.7-1.3 H code = 03E) GFR (test code = 9 mL/min/1.73m\\S\\2 See_Comment L [Aut omated GFR) message] The system which generated this result transmit pal reference range : >=90. The reference range was not used to interpret this result as normal/abnormal . GFR 11 See_Comment L [Automated STATELESS (test mL/min/1.73m\\S\\2 message] The code = GFRAA) system which generated this result transmit pal reference range : >=90. The reference range was not used to interpret this result as normal/abnormal . EGFR (test code = eGFR BY EGFR) CKD-EPI CALCULATION IS NOT RECOMMENDED FOR PATIENTS UNDER 18 YEARS OF AGE. BUN/CREA (test 14 12-20 code = BCR) CALCIUM (test code 8.1 mg/dL 8.3-9.5 L = 09D) BILI TOTAL (test 0.4 mg/dL 0.2-1.0 code = 11A) PROTEIN (test code 7.4 g/dL 6.4-8.2 = 07D) ALBUMIN (test code 3.4 g/dL 3.5-4.8 L = 08D) GLOBULIN (test 4.0 g/dL 1.5-3.8 H code = GLB) ALB/GLOB (test 0.8 1.0-2.6 L code = AGRR) ALK PHOS (test 127 IU/L 42-121 H code = 35A) AST (test code = 47 IU/L See_Comment H [Automated 30A) message] The system which generated this result transmit pal reference range : <=42. The reference range was not used to interpret this result as normal/abnormal . ALT (test code = 26 IU/L See_Comment [Automated 31A) message] The system which generated this result transmit pal reference range : <=78. The reference range was not used to interpret this result as normal/abnormal . CBC (INCLUDES AUTOMATED DIFFERENTIAL)2020-06-29 09:54:00 Test Item Value Reference Range Interpretation Comments WBC (test code = WBC) 11.5 10\\S\\3/uL 4.5-11.0 H RBC (test code = RBC) 3.56 10\\S\\6/uL 3.80-5.80 L HGB (test code = HBG) 10.2 g/dL 14.0-18.0 L HCT (test code = HCT) 31.4 % 35.0-46.0 L MCV (test code = MCV) 88.2 fL 80.0-94.0 MCH (test code = MCH) 28.7 pg 27.0-31.0 MCHC (test code = MCHC) 32.5 g/dL 32.0-36.0 RDW (test code = RDW) 15.0 % 11.5-14.5 H PLT (test code = PLT) 162 10\\S\\3/uL 130-400 MPV (test code = MPV) 11.1 fL 9.4-12.4 NEUTROP # (test code = NE#) 9.6 10\\S\\3/uL 2.0-8.0 H LYMPH # (test code = LY#) 0.8 10\\S\\3/uL 1.2-4.0 L MONOCYTE # (test code = MO#) 0.9 10\\S\\3/uL 0.0-1.1 EOSINOPH # (test code = EO#) 0.0 10\\S\\3/uL 0.0-0.7 BASOPHIL # (test code = BA#) 0.0 10\\S\\3/uL 0.0-0.3 IG # (test code = IG#) 0.06 10\\S\\3/uL 0.00-0.06 NRBC # (test code = NRBC#) 0.00 10\\S\\3/uL 0.00-0.01 NEUTROPH % (test code = NE%) 84.1 % 35.0-73.0 H LYMPH % (test code = LY%) 7.2 % 20.0-55.0 L MONO % (test code = MO%) 7.8 % 2.5-10.0 EOSINOPH % (test code = EO%) 0.1 % 0.0-5.0 BASOPHIL % (test code = BA%) 0.3 % 0.0-2.0 IG % (test code = IG%) 0.5 % 0.0-0.8 NRBC% (test code = NRBC%) 0.0 % 0.0-0.2 MANDIFF (test code = MDIFF) NO NO RBC MORPH (test code = RBCMOR) NORMAL GLUCOMETER GLUCOSE- LAB USE [id number] 06:04:00 Test Item Value Reference Range Interpretation Comments GLUCOMETER (test code = 227 mg/dL 70-100 H Mete r ID: GMG) [id number] tor: 4496 [address] CARRERO GLUCOMETER GLUCOSE- LAB USE [id number] 20:51:00 Test Item Value Reference Range Interpretation Comments GLUCOMETER (test code = 226 mg/dL 70-100 H Mete r ID: GMG) [id number] tor: [address] C[facility] GLUCOMETER GLUCOSE- LAB USE [id number] 15:28:00 Test Item Value Reference Range Interpretation Comments GLUCOMETER (test code 303 mg/dL 70-100 H CLEANE D METERMeter ID: = GMG) [id number] tor: [id number] VANSON VO JANELL GLUCOMETER GLUCOSE- LAB USE [id number] 11:34:00 Test Item Value Reference Range Interpretation Comments GLUCOMETER (test code 319 mg/dL 70-100 H CLEANE D METERMeter ID: = GMG) [id number] tor: 79907 VANSON VO JANELL CARDIAC [id number] 06:56:00 Test Item Value Reference Range Interpretation Comments TROPONIN I (test code = A84) 1.990 ng/mL 0.000-0.045 BASIC METABOLIC [id number] 06:40:00 Test Item Value Reference Range Interpretation Comments GLUCOSE (test code 306 mg/dL 75-100 H = 06D) SODIUM (test code 142 mmol/L 136-145 = 01A) POTASSIUM (test 4.8 mmol/L 3.6-5.1 code = 01B) CHLORIDE (test 112 mmol/L 98-107 H code = 04A) CO2 (test code = 18 mmol/L 22-32 L 02A) ANION GAP (test 16.8 mmol/L code = ANG) BUN (test code = 69 mg/dL 7-18 H 05D) CREATININE (test 5.2 mg/dL 0.7-1.3 H code = 03E) GFR (test code = 10 See_Comment L [Automated GFR) mL/min/1.73m\\S\\2 message] Th e system which generated this result transmit pal reference range : >=90. The reference range was not used to interpret this result as normal/abnormal . GFR 12 See_Comment L [Automated STATELESS (test mL/min/1.73m\\S\\2 message] The code = GFRAA) system which generated this result transmit pal reference range : >=90. The reference range was not used to interpret this result as normal/abnormal . EGFR (test code = eGFR BY EGFR) CKD-EPI CALCULATION IS NOT RECOMMENDED FOR PATIENTS UNDER 18 YEARS OF AGE. BUN/CREA (test 01-27 code = BCR) CALCIUM (test code 8.2 mg/dL 8.3-9.5 L = 09D) GLUCOMETER GLUCOSE- LAB USE [id number] 06:22:00 Test Item Value Reference Range Interpretation Comments GLUCOMETER (test 338 mg/dL 70-100 H Result Not code = GMG) ConfirmedMeter ID: [id number] tor: 4496 KA[address] CARRERO CARDIAC [id number] 00:14:00 Test Item Value Reference Range Interpretation Comments TROPONIN I (test code = A84) 0.592 ng/mL 0.000-0.045 HH GLUCOMETER GLUCOSE- LAB USE [id number] 22:02:00 Test Item Value Reference Range Interpretation Comments GLUCOMETER (test code = 286 mg/dL 70-100 H Mete r ID: GMG) [id number] tor: 4496 K[address] CARRERO [id number] 16:52:00 Test Item Value Reference Range Interpretation Comments ACETAMINPH (test code = 94M) <2.0 ug/mL 10.0-30.0 L [id number] 16:51:00 Test Item Value Reference Range Interpretation Comments FERRITIN (test code = A19) 320.4 ng/mL 26.0-388.0 LDH-LACTIC [id number] 16:51:00 Test Item Value Reference Range Interpretation Comments LDH (test code = 33A) 240 IU/L 87-241 SARS-CoV (RAPID ANTIGEN)2020-06-27 16:45:00 Test Item Value Reference Range Interpretation Comments SARS-CoV (ANTIGEN) NEGATIVE NEGATIVE (test code = COVAG) COVID AG (test This test has been code = COVAGC) marketed under the FDA Emergency Use Authorization (EUA) to meet challenges of the COVID-19 pandemic. The validation standards normally enforced by the FDA and the [employer] ([employer]) are more stringent than those required for this test. Therefore, the result should be interpreted with caution and close attention to other clinical and epidemiological data C-REACTIVE PROTEIN [id number] 16:42:00 Test Item Value Reference Range Interpretation Comments CRP QUANT (test code <2.9 mg/L 0.0-2.9 = CRPQ) Method Change (test Please note the code = METHOD) change in Method and the reference range DRUGS OF [id number] 16:42:00 Test Item Value Reference Range Interpretation Comments DRUG SCRN (test code URINE DRUG SCREEN = HDOA) This is an unconfirmed screening result and should not be used for non-medical purposes CANNABINOD (test code Negative NEGATIVE = 88C) AMPHETAMINE (test Negative NEGATIVE code = 84A) BENZODIAZP (test code Negative NEGATIVE = 86A) BARBITURAT (test code Negative NEGATIVE = 85A) OPIATES (test code = Negative NEGATIVE 92B) COCAINE (test code = Negative NEGATIVE 87A) PHENCYCLID (test code Negative NEGATIVE = 66A) METHADONE (test code Negative NEGATIVE = 64A) DOAH (test code = DOAH.) *URINE DRUGSCREEN Cut-off values are as follows: Cannabinoids 50 ng/mL Cocaine 300 ng/mL Amphetamines 1000 ng/mL Phencyclidine 25 ng/mL Benzodiazepines 200 ng.mL Methadone 300 ng/mL Barbiturates 200 ng/mL Opiates 300 ng/mL [id number] 16:40:00 Test Item Value Reference Range Interpretation Comments SALICYLATE (test code = 94B) <1.7 mg/dL 2.8-20.0 L CARDIAC [id number] 16:40:00 Test Item Value Reference Range Interpretation Comments TROPONIN I (test code = A84) 0.066 ng/mL 0.000-0.045 H COMPREHENSIVE METABOLIC [id number] 16:38:00 Test Item Value Reference Range Interpretation Comments GLUCOSE (test code 267 mg/dL 75-100 H = 06D) SODIUM (test code 141 mmol/L 136-145 = 01A) POTASSIUM (test 4.3 mmol/L 3.6-5.1 code = 01B) CHLORIDE (test 111 mmol/L 98-107 H code = 04A) CO2 (test code = 20 mmol/L 22-32 L 02A) ANION GAP (test 14.3 mmol/L code = ANG) BUN (test code = 63 mg/dL 7-18 H 05D) CREATININE (test 4.6 mg/dL 0.7-1.3 H code = 03E) GFR (test code = 12 See_Comment L [Automated GFR) mL/min/1.73m\\S\\2 message] Th e system which generated this result transmit pal reference range : >=90. The reference range was not used to interpret this result as normal/abnormal . GFR 14 See_Comment L [Automated STATELESS (test mL/min/1.73m\\S\\2 message] The code = GFRAA) system which generated this result transmit pal reference range : >=90. The reference range was not used to interpret this result as normal/abnormal . EGFR (test code = eGFR BY EGFR) CKD-EPI CALCULATION IS NOT RECOMMENDED FOR PATIENTS UNDER 18 YEARS OF AGE. BUN/CREA (test 01-27 code = BCR) CALCIUM (test code 7.9 mg/dL 8.3-9.5 L = 09D) BILI TOTAL (test 0.3 mg/dL 0.2-1.0 code = 11A) PROTEIN (test code 7.6 g/dL 6.4-8.2 = 07D) ALBUMIN (test code 4.0 g/dL 3.5-4.8 = 08D) GLOBULIN (test 3.6 g/dL 1.5-3.8 code = GLB) ALB/GLOB (test 1.1 1.0-2.6 code = AGRR) ALK PHOS (test 172 IU/L 42-121 H code = 35A) AST (test code = 20 IU/L See_Comment [Automated 30A) message] The system which generated this result transmit pal reference range : <=42. The reference range was not used to interpret this result as normal/abnormal . ALT (test code = 24 IU/L See_Comment [Automated 31A) message] The system which generated this result transmit pal reference range : <=78. The reference range was not used to interpret this result as normal/abnormal . URINALYSIS WITH [id number] 16:35:00 Test Item Value Reference Range Interpretation Comments COLOR (test code = COLU) YELLOW YELLOW CLARITY (test code = CLA) CLOUDY CLEAR A GLUCOSE UR (test code = UA GLUCOSE) 1+ NEGATIVE A BILI UR (test code = BILE) NEGATIVE NEGATIVE KETONES UR (test code = YAS) NEGATIVE NEGATIVE SP GRAVITY (test code = SPGR) 1.015 1.005-1.030 PH UR (test code = PH) 7.5 4.5-8.0 PROTEIN UR (test code = PU) 3+ NEGATIVE A UROBIL UR (test code = UROQ) 0.2 EU/dL 0.2-1.0 NITRITE UR (test code = NITRITE) NEGATIVE NEGATIVE BLOOD UR (test code = UA BLOOD) 3+ NEGATIVE A LEUK ES UR (test code = LEUK) 3+ NEGATIVE A WBC UR (test code = UWBC) >100 /HPF 0-3 H RBC UR (test code = URBC) >100 /HPF 0-2 H EPITH UR (test code = UEPC) FEW /LPF NONE A BACTERIA UR (test code = UBACT) FEW /HPF NONE A CAST UR (test code = CAST) /LPF NONE CRYSTAL UR (test code = CRYU) / LPF NONE MUCUS UR (test code = MUC) / HPF NONE AMORPH UR (test code = CIPRIANO) / HPF NONE TRICH UR (test code = UTRICH) /HPF NONE YEAST UR (test code = UY) /HPF NONE SPERM UR (test code = USPERM) /HPF NONE ALCOHOL BLOOD (ETOH)2020-06-27 16:33:00 Test Item Value Reference Range Interpretation Comments ETOH (test code = ETHANOL HALC) The result is to be used only for medical purposes ALCOHOL (test <10 mg/dL See_Comment [Automated me ssage] code = 56A) The system [employer] generated this result transmit pal reference range : <=10. The refer ence range was not u sed to interpret th is result as normal/abnormal . AMMONIA [id number] 16:33:00 Test Item Value Reference Range Interpretation Comments AMMONIA (test code = 54A) 41 umol/L 11-32 H [id number] 16:32:00 Test Item Value Reference Range Interpretation Comments D-DIMER (test code = <200 ng/mL D-DU 0-234 DDI) D-DIMER COMMENT (test *Level to rule out code = DDCOM) DVT or PE: <235 ng/mL D-DU* PRO TIME AND [id number] 16:32:00 Test Item Value Reference Range Interpretation Comments PT (test code = 14.7 s 9.8-13.6 H TT) INR (test code = 1.3 INR) INRH (test code = SUGGESTED INRH) THERAPEUTIC RANGE FOR INR: 2.5 - 3.5 For Patients with Prosthetic Valves or Patients with recurrent Thromboembolic Events 2.0 - 3.0 For Most Other Applications PTT (test code = 39.9 s 20.2-38.0 H PTT) PTTH (test code = To monitor the PTTH) effectiveness of heparin, we offer the Anti-Xa (Heparin Assay). It can be used for either unfractionated or LMW Heparin. Order Code is ANTI-XA CBC (INCLUDES AUTOMATED DIFFERENTIAL)2020-06-27 16:22:00 Test Item Value Reference Range Interpretation Comments WBC (test code = WBC) 6.8 10\\S\\3/uL 4.5-11.0 RBC (test code = RBC) 3.45 10\\S\\6/uL 3.80-5.80 L HGB (test code = HBG) 10.1 g/dL 14.0-18.0 L HCT (test code = HCT) 29.3 % 35.0-46.0 L MCV (test code = MCV) 84.9 fL 80.0-94.0 MCH (test code = MCH) 29.3 pg 27.0-31.0 MCHC (test code = MCHC) 34.5 g/dL 32.0-36.0 RDW (test code = RDW) 14.3 % 11.5-14.5 PLT (test code = PLT) 163 10\\S\\3/uL 130-400 MPV (test code = MPV) 10.6 fL 9.4-12.4 NEUTROP # (test code = NE#) 5.3 10\\S\\3/uL 2.0-8.0 LYMPH # (test code = LY#) 0.9 10\\S\\3/uL 1.2-4.0 L MONOCYTE # (test code = MO#) 0.5 10\\S\\3/uL 0.0-1.1 EOSINOPH # (test code = EO#) 0.0 10\\S\\3/uL 0.0-0.7 BASOPHIL # (test code = BA#) 0.1 10\\S\\3/uL 0.0-0.3 IG # (test code = IG#) 0.03 10\\S\\3/uL 0.00-0.06 NRBC # (test code = NRBC#) 0.00 10\\S\\3/uL 0.00-0.01 NEUTROPH % (test code = NE%) 78.3 % 35.0-73.0 H LYMPH % (test code = LY%) 13.1 % 20.0-55.0 L MONO % (test code = MO%) 6.9 % 2.5-10.0 EOSINOPH % (test code = EO%) 0.6 % 0.0-5.0 BASOPHIL % (test code = BA%) 0.7 % 0.0-2.0 IG % (test code = IG%) 0.4 % 0.0-0.8 NRBC% (test code = NRBC%) 0.0 % 0.0-0.2 MANDIFF (test code = MDIFF) NO NO RBC MORPH (test code = RBCMOR) NORMAL BLOOD [id number] 07:46:00 Test Item Value Reference Range Interpretation Comments Culture Observations (test NO GROWTH AFTER 5 code = COB1) DAYS BLOOD [id number] 07:46:00 Test Item Value Reference Range Interpretation Comments Culture Observations (test NO GROWTH AFTER 5 code = COB1) DAYS XR INSERT PICC W/IMAGING 5YRS & [id number] 16:28:41EXAMINATION: Fluoroscopic and ultrasound-guided PICC line placement.LOCATION: D4.HISTORY: [id number]:AntibioticsSEDATION: The patient did not require conscious sedation for the procedure.RADIATION DOSE: Fluoroscopy time:7.8 sec. Images obtained: 1.ANTIBIOTICS: None. Not indicated.TECHNIQUE: The risks, benefits, and alternatives were discussed and informedconsent was obtained. Prior to beginning theprocedure, [place] Protocol wasused to confirm the patient's identity and planned procedure. Maximum sterilebarriers including cap, mask, hand hygiene, sterile gloves, sterile gown, largesterile drape and cutaneous antisepsis were used.The skin over the right basilic vein was sterilely prepped, draped, andinfiltrated with lidocaine.Prior to the procedure, the target vessel was evaluated by ultrasound. Animage of the patent vessel was recorded and saved to PACS. After sterile prep,this vessel was accessed with a micropuncture needle using real-time ultrasoundguidance. A guidewire and catheter were then passed centrally using fluoroscopicguidance. The intravascular length from the access siteto the right atriumwas assessed. The catheter was trimmed at 34 cm.After dilating the tract, a dual lumen PICC was inserted over the guidewire andthrough a peel away sheath. The catheter was flushed and secured in place withnonabsorbable suture. A sterile dressing was applied. ESTIMATED BLOOD LOSS: Less than 10 milliliters.COMPLICATIONS: None.DISCHARGED TO: Inpatient unit.FINDINGS: Ultrasound demonstrates a patent right basilic vein.The final fluoroscopic image demonstrates the catheter with its tip at thecavoatrial junction / upper right atrium. No complications are seen.IMPRESSION: Successful non-tunneled right upper extremity PICC line placement.PLAN: The catheter is ready for immediate use. When treatment is completed,this catheter can be removed at the bedside according to standard hospitalprotocol.GLUCOMETER GLUCOSE- LAB USE [id number] 16:19:00 Test Item Value Reference Range Interpretation Comments GLUCOMETER (test code = 178 mg/dL 70-100 H Mete r ID: GMG) [id number] tor: 9287 VANNESA O LAGOS GLUCOMETER GLUCOSE- LAB USE [id number] 11:15:00 Test Item Value Reference Range Interpretation Comments GLUCOMETER (test code 149 mg/dL 70-100 H CLEANE D METERMeter ID: = GMG) [id number] tor: None GLUCOMETER GLUCOSE- LAB USE [id number] 06:16:00 Test Item Value Reference Range Interpretation Comments GLUCOMETER (test code = 232 mg/dL 70-100 H Mete r ID: GMG) [id number] tor: None GLUCOMETER GLUCOSE- LAB USE [id number] 21:31:00 Test Item Value Reference Range Interpretation Comments GLUCOMETER (test code 211 mg/dL 70-100 H CLEANE D METERMeter ID: = GMG) [id number] tor: 4736 DOUG MATAMOROS BRIGHT GLUCOMETER GLUCOSE- LAB USE [id number] 15:49:00 Test Item Value Reference Range Interpretation Comments GLUCOMETER (test code = 241 mg/dL 70-100 H Mete r ID: GMG) [id number] tor: None U/S KIDNEY (RENAL)2018-08-24 13:10:55RENAL ULTRASOUNDLocation Code: [id number] HISTORY: [id number]: Acute nontraumatic kidney injuryCOMPARISON: None.COMMENT: Real-time sonographic images of the kidneys was performed.The kidneys are of normal echogenicity with no focal mass, calcification, orhydronephrosis.The right kidney measures 8.3 x 4.2 x 4.3cm. The left kidney measures 9.0 x 4.5x 4.6cm. Cortical thickness is normal on each side.The bladder is decompressed with Ortega catheter.IMPRESSION: Normal renal ultrasound GLUCOMETER GLUCOSE- LAB USE [id number] 11:25:00 Test Item Value Reference Range Interpretation Comments GLUCOMETER (test code = 220 mg/dL 70-100 H Mete r ID: GMG) [id number] tor: None URINE [id number] 08:57:00 Test Item Value Reference Range Interpretation Comments Isolate 1 (test code = Serratia marcescens A ISO1) ceftazidime (test code = ug/mL S vipul) ceftriaxone1 (test code = ug/mL R ctr) cefepime (test code = ug/mL S fep) aztreonam (test code = ug/mL R azm) ertapenem (test code = ug/mL S etp) meropenem (test code = ug/mL S mem) gentamicin (test code = ug/mL R gm) tobramycin (test code = ug/mL I tob) levofloxacin (test code = ug/mL S lev) trimethoprim/sulfamethoxa ug/mL S zole (test code = sxt) GLUCOMETER GLUCOSE- LAB USE [id number] 06:22:00 Test Item Value Reference Range Interpretation Comments GLUCOMETER (test code = 147 mg/dL 70-100 H Mete r ID: GMG) [id number] tor: 5[address] [facility] BASIC METABOLIC [id number] 06:21:00 Test Item Value Reference Range Interpretation Comments GLUCOSE (test code = 06D) 158 mg/dL 75-100 H SODIUM (test code = 01A) 135 mmol/L 136-145 L POTASSIUM (test code = 01B) 4.1 mmol/L 3.6-5.1 CHLORIDE (test code = 04A) 105 mmol/L 98-107 CO2 (test code = 02A) 21 mmol/L 22-32 L ANION GAP (test code = ANG) 13.1 mmol/L BUN (test code = 05D) 39 mg/dL 7-18 H CREATININE (test code = 03E) 2.7 mg/dL 0.7-1.3 H BUN/CREA (test code = BCR) 14 12-20 CALCIUM (test code = 09D) 9.4 mg/dL 8.3-9.5 GLUCOMETER GLUCOSE- LAB USE [id number] 20:04:00 Test Item Value Reference Range Interpretation Comments GLUCOMETER (test code 353 mg/dL 70-100 H CLEANE D METERMeter ID: = GMG) [id number] tor: 9699 ANGELO Maradiaga BABA GLUCOMETER GLUCOSE- LAB USE [id number] 16:59:00 Test Item Value Reference Range Interpretation Comments GLUCOMETER (test code 192 mg/dL 70-100 H CLEANE D METERMeter ID: = GMG) [id number] tor: 4773 HEVER THOMPSON XR REM TUNNELED CENTRAL [id number] 14:48:55Right IJ tunneled central venous catheter removalDictation location: [id number] HISTORY: InfectionPRO CEDURE:Written informed consent was obtained. The patient was brought to theinterventional suite andplaced supine. The existing right IJ tunneled centralvenous catheter was removed with gentle traction and hemostasis was achievedwith direct manual compression. A sterile dressing was applied. The patient tolerated the procedure well there were no immediate complication. IMPRESSION: Successful removal of right IJ tunneled central venous catheter. GLUCOMETER GLUCOSE- LAB USE [id number] 06:10:00 Test Item Value Reference Range Interpretation Comments GLUCOMETER (test code 191 mg/dL 70-100 H CLEANE D METERMeter ID: = GMG) [id number] tor: 9699 ANGELO CHOE BASIC METABOLIC [id number] 04:58:00 Test Item Value Reference Range Interpretation Comments GLUCOSE (test code = 06D) 185 mg/dL 75-100 H SODIUM (test code = 01A) 132 mmol/L 136-145 L POTASSIUM (test code = 01B) 4.1 mmol/L 3.6-5.1 CHLORIDE (test code = 04A) 103 mmol/L 98-107 CO2 (test code = 02A) 21 mmol/L 22-32 L ANION GAP (test code = ANG) 12.1 mmol/L BUN (test code = 05D) 46 mg/dL 7-18 H CREATININE (test code = 03E) 2.8 mg/dL 0.7-1.3 H BUN/CREA (test code = BCR) 17 12-20 CALCIUM (test code = 09D) 8.9 mg/dL 8.3-9.5 CBC (INCLUDES AUTOMATED DIFFERENTIAL)2018-08-23 04:51:00 Test Item Value Reference Range Interpretation Comments WBC (test code = WBC) 8.7 10\\S\\3/uL 4.5-11.0 RBC (test code = RBC) 3.30 10\\S\\6/uL 3.80-5.80 L HGB (test code = HBG) 9.8 g/dL 14.0-18.0 L HCT (test code = HCT) 28.6 % 35.0-46.0 L MCV (test code = MCV) 86.7 fL 80.0-94.0 MCH (test code = MCH) 29.7 pg 27.0-31.0 MCHC (test code = MCHC) 34.3 g/dL 32.0-36.0 RDW (test code = RDW) 13.7 % 11.5-14.5 PLT (test code = PLT) 190 10\\S\\3/uL 130-400 MPV (test code = MPV) 10.1 fL 9.4-12.4 NEUTROP # (test code = NE#) 6.0 10\\S\\3/uL 2.0-8.0 LYMPH # (test code = LY#) 1.3 10\\S\\3/uL 1.2-4.0 MONOCYTE # (test code = MO#) 0.9 10\\S\\3/uL 0.0-1.1 EOSINOPH # (test code = EO#) 0.4 10\\S\\3/uL 0.0-0.7 BASOPHIL # (test code = BA#) 0.1 10\\S\\3/uL 0.0-0.3 IG # (test code = IG#) 0.03 10\\S\\3/uL 0.00-0.06 NRBC # (test code = NRBC#) 0.00 10\\S\\3/uL 0.00-0.01 NEUTROPH % (test code = NE%) 69.3 % 35.0-73.0 LYMPH % (test code = LY%) 14.6 % 20.0-55.0 L MONO % (test code = MO%) 9.8 % 2.5-10.0 EOSINOPH % (test code = EO%) 4.8 % 0.0-5.0 BASOPHIL % (test code = BA%) 1.2 % 0.0-2.0 IG % (test code = IG%) 0.3 % 0.0-0.8 NRBC% (test code = NRBC%) 0.0 % 0.0-0.2 MANDIFF (test code = MDIFF) NO NO RBC MORPH (test code = RBCMOR) NORMAL CHEM8+ i-STAT OW2018-08-22 18:41:00 Test Item Value Reference Range Interpretation Comments SODIUM (test code = SHREYA) 134 mmol/L 138-146 L POTASSIUM (test code = KI) 4.2 mmol/L 3.5-4.9 CHLORIDE (test code = CLI) 102 mmol/L 98-109 CA IONIZED (test code = ICAI) 1.22 mmol/L 1.12-1.32 GLUCOSE (test code = GLUI) 191 mg/dL 75-100 H TCO2 (test code = TCO2) 22 mmol/L 24-29 L BUN (test code = BUN1) 39 mg/dL 8-26 H CREATININE (test code = CREAI) 2.8 mg/dL 0.6-1.3 H ANION GAP (test code = GANG) 15.0 mmol/L HGB (test code = MHB) 10.2 g/dL 12.0-17.0 L HCT (test code = MHCT) 30.0 % 38.0-51.0 L CBC (INCLUDES AUTOMATED DIFFERENTIAL) *2018-08-22 18:40:00 Test Item Value Reference Range Interpretation Comments WBC (test code = WBC) 10.8 10\\S\\3/uL 4.5-11.0 RBC (test code = RBC) 3.48 10\\S\\6/uL 3.80-5.80 L HGB (test code = HBG) 10.3 g/dL 14.0-18.0 L HCT (test code = HCT) 31.3 % 35.0-46.0 L MCV (test code = MCV) 90.0 fL 80.0-94.0 MCH (test code = MCH) 29.6 pg 27.0-31.0 MCHC (test code = MCHC) 32.9 g/dL 32.0-36.0 RDW (test code = RDW) 13.4 % 11.5-14.5 PLT (test code = PLT) 193 10\\S\\3/uL 130-400 MPV (test code = OMPV) 7.9 fL 6.2-10.2 NEUTROP # (test code = NE#) 8.5 10\\S\\3/uL 2.0-8.0 H LYMPH # (test code = LY#) 1.4 10\\S\\3/uL 1.2-4.0 MID # (test code = GMID#) 0.9 10\\S\\3/uL 0.0-1.1 GRA % (test code = GRA%) 78.8 % 35.0-73.0 H LYMPH % (test code = GLY%) 13.0 % 20.0-55.0 L MID % (test code = GMID%) 8.2 % 0.0-10.0 URINALYSIS W/O MICROSCOPICOW2018-08-22 18:38:00 Test Item Value Reference Range Interpretation Comments COLOR (test code = Yellow YELLOW COLU) CLARITY (test code = Clear CLEAR CLA) GLUCOSE UR (test 1+ NEGATIVE A code = UA GLUCOSE) BILI UR (test code = Negative NEGATIVE BILE) KETONES UR (test Negative NEGATIVE code = YAS) SP GRAVITY (test 1.015 1.005-1.030 code = SPGR) PH UR (test code = 6.0 4.5-8.0 PH) PROTEIN UR (test 2+ NEGATIVE A code = PU) NITRITE UR (test Negative NEGATIVE code = NITRITE) UROBIL UR (test code 0.2 E.U./dL = GUROQ) UROBIL UR (test code UROBILINOGEN = GUROQC) REFERENCE RANGE 0.2 - 1.0 EU/dL BLOOD UR (test code 1+ NEGATIVE A = UA BLOOD) LEUK ES UR (test 1+ NEGATIVE A code = LEUK) LACTIC ACID OW2018-08-22 18:36:00 Test Item Value Reference Range Interpretation Comments LACTATE (test code = SUMI) 0.7 mmol/L 0.9-1.7 L XR CHEST 1 VIEW *OW*2018-08-22 18:22:36Xray Chest 1 viewsLocation Code: [id number]: None availableCLINICAL HISTORY: Catheter complication.Findings: A right central line is seen with tip at the level of the mid SVC.The cardiomediastinal silhouette is within normal limits. No evidence ofpulmonary edema, pleural effusion or consolidation is visualized.IMPRESSION: A right central line is seen with tip at the level of the mid SVC.The cardiomediastinal silhouette is within normal limits. No evidence ofpulmonary edema, pleural effusion or consolidation is visualized.
[2020-07-24 01:00] LABS: Urine Appearance CLEAR (Clear); Urine Bilirubin NEGATIVE (Negative); Urine Blood TRACE (Negative); Urine Color YELLOW (Yellow); Urine Glucose 2+ (Negative); Urine Protein 2+ (Negative); Urine Specific Gravity <=1.005 (1.005-1.030); Urine Urobilinogen 0.2 mg/dL (0.2-1.0); Urine pH 7.5 (5.0-7.0)
[2020-07-24 01:55] LABS: Urine Bacteria <20 /HPF (NONE SEEN); Urine RBC <5 /HPF (NONE SEEN); Urine Urothelial Cells <5 /HPF (NONE SEEN)
[2020-07-24] MEDS ORDERED: GLUCAGON 1 MG/VIAL IM PRN ×2 (02:38→02:48)
[2020-07-24] MEDS ORDERED: D50W 25 GM/50 ML SYRINGE IV PRN ×2 (02:38→02:48)
[2020-07-24] MEDS: METOPROLOL TAR 25 MG TAB PO SCH ×2 (05:01→16:52)
[2020-07-24 06:11] LABS: Absolute Lymphocytes (CBC) 0.9 K/uL (0.7-4.9); Basophils % 2.8 % (0-1.3); Hematocrit 27.6 % (39.6-49.0); Lymphocytes % 19.3 % (15.3-44.8); MPV 7.8 fL (7.6-11.3)
[2020-07-24] MEDS: LEVOTHYROXINE SOD 0.025 MG TAB PO SCH (06:24)
[2020-07-24 06:32] LABS: Albumin 2.8 g/dL (3.4-5.0); Magnesium 1.8 mg/dL (1.8-2.4); Potassium 4.7 mmol/L (3.5-5.1); Prealbumin 23.5 mg/dL (20-40)
[2020-07-24] MEDS ORDERED: FE SULF/FA/VIT B COMP & C TAB PO SCH (08:00)
[2020-07-24] MEDS ORDERED: INSULIN LISPRO 100 UNIT/1 ML SQ SCH (08:00)
[2020-07-24] MEDS: ASPIRIN EC 81 MG TAB PO SCH (08:11)
[2020-07-24] MEDS: CALCITROL 0.25 MCG CAP PO SCH (08:11)
[2020-07-24] MEDS: FAMOTIDINE 20 MG TAB PO SCH (08:11)
[2020-07-24] MEDS: CLOPIDOGREL 75 MG TABLET PO SCH (08:11)
[2020-07-24] MEDS: INSULIN LISPRO 100 UNIT/1 ML SQ SCH ×4 (08:14→19:46)
--- NOTE | 2020-07-24 12:43 | CON ---
Date of Consultation: 07/24/2020 Reason For Consultation: Elevated BUN and creatinine, dialysis management, hypertension. History Of Present Illness: This is a pleasant 69-year-old gentleman with significant past medical h istory of diabetes complicated with neuropathy and nephropathy, hypertension, hyperlipidemia, hep C, chronic kidney disease progressed to end-stage renal disease, recently started on dialysis on this ad mission in July 04, coronary artery disease status post non-ST elevation MN, status post CABG at [facility] ospital. The patient was admitted to [facility] with non-ST elevation MN, was initiated on raymond lysis because of the over volume. The patient was transferred to [facility] for CABG, tolerated we ll. The patient was transferred to the rehab to continue cardiac rehab. The patient is feeling better. Still has good urine output. Past Medical History: Includes; 1.Diabetes complicated with neuropathy and nephropathy. 2.Chronic kidney disease, stage 5, progression to end-stage renal disease. 3.Hypertension. 4.Hep C. 5.Coronary artery disease, status post non-ST elevation MN, status post CABG. Past Surgical History: Includes , PermCath placement. Allergies: NO KNOWN DRUGS ALLERGY. Family History: Positive for diabetes and hypertension. Home Medications: Include Pepcid, aspirin, levothyroxine, calcitriol, Flomax, metoprolol, carvedilol , Tylenol. Review of Systems: Head and Neck: No red eye. No ear pain. GI: No nausea. No vomiting. : No polyuria. No dysuria. No hematuria. Collar Tacker: Not applicable. Respiratory: No shortness of breath. Cardiovascular: Has chest pain. Endocrine: No polydipsia. Skin: No rash. Neurologic: Alert. No focality. Has neuropathy. Musculoskeletal: No joint pain. Physical Examination: Vital Signs: Blood pressure of 147/71, pulse of 74, afebrile. Today; blood pressure 129/68, pulse o f 72. Chest: Faint rales bilateral base. Heart: S1, S2. Systolic murmur. Abdomen: Soft, nontender. Extremity: Dressing on both legs, especially on the right leg where the vein harvest. Trace edema. Neuro: Alert and oriented x3. No focal. Laboratory Data: WBC 4.7, H and H 9.2/27.6, platelets 246. Sodium 139, potassium 4.7, bicarb 25, BU N 29, creatinine 2.7, GFR of 23 and this is after dialysis, calcium 8.4, magnesium 1.8, albumin 2.8. Current Medications: The patient in the hospital include aspirin, Flomax, Lasix, atorvastatin, Epoge n, metoprolol 25 b.i.d., Pepcid, levothyroxine, finasteride, calcitriol. Assessment And Plan: 1.Chronic kidney disease, stage 5, progression to end-stage renal disease, on dialysis TTS. I am go ing to continue the patient on dialysis TTS. We will schedule for the patient for dialysis tomorrow. We will continue to monitor the patient's condition. If he is going to show recovery to wean from dialysis, we will follow up predialysis. We will follow up the I's and O's. 2.Hypertension, controlled, optimal. The patient is going to be a good candidate for YAS inhibitor. We will consider resuming YAS inhibitor/ARB after completely giving up on the kidney recovery. Cur rently, we will continue current treatment. 3.Anemia of chronic kidney disease. Continue EVONNE. 4.Secondary hyperparathyroidism. Continue calcitriol. We will follow up phosphorus. 5.Hypomagnesemia. No need for supplement. 6.Coronary artery disease, non-ST elevation myocardial infarction, status post coronary artery bypas s graft. We will continue current follow up with Primary and Cardiology. 7.Deconditioning. Continue PT/OT. EVA/CAROLINA Voice ID: [id number] Report ID: [id number]
--- NOTE | 2020-07-24 13:28 | CON ---
Date of Consultation: 07/24/2020 CANCELED DICTATION Reason For Consultation: Acidosis, hyperkalemia, acute kidney injury. History Of Present Illness: DICTATION ENDS HERE. NOLA Voice ID: [id number] Report ID: [id number]
[2020-07-24] MEDS: LIDOCAINE 4% PATCH TOP SCH (14:25)
[2020-07-24] MEDS: ENOXAPARIN 30 MG/0.3 ML SQ SCH (16:52)
[2020-07-24] MEDS: ACETAMINOPHEN 325 MG TABLET PO PRN (16:59)
--- NOTE | 2020-07-24 17:07 | R.HP ---
HISTORY AND PHYSICAL FACILITY: [facility] ENCOUNTER DATE AND TIME: 07/24/2020 17:00 (CDT) MR#: [id number] NAME NIKOLAY SOTELO ADDRESS: [place] [id number] CITY: [facility] [place]IP [address] PHONE: ( DATE OF : 1950 AGE: 69 SSN# [id number] GENDER: Male DEXTERITY Right-handed MARITAL STATUS PRE-HOSPITAL LIVING SETTING 01 - Home (private home/apt. board/care, assisted living, jail, transitional living) PRE-HOSPITAL LIVING WITH Alone ENCOUNTER PHYSICIAN: Dr. Chaitanya Roldan M.D. REFERRING DOCTOR: Akhil Collier DATE OF ADMISSION: 07/23/2020 11:08 (CDT) REFERRING FACILITY [facility] HOME TYPE AND DETAILS: Type of home: apartment # of steps within the residence: 0 # of steps to enter the residence: 0 ONSET DATE: 07/02/2020 PRIMARY DIAGNOSIS-RELATED SURGERIES: CABG Cardiac Disorders () - performed by Akhil Collier on 07/15/2020 SECONDARY/COMORBID DIAGNOSES (TIERED): - Non-Tiered Type 2 diabetes mellitus with diabetic neuropathy, unspecified (E11.40) - N/A NSTEMI Proteus UTI Acute on chronic encephalopathy HTN Anemia Secondary hyperPTH CAD BPH Dementia - Tier 1 Dependence on renal dialysis (Z99.2) HISTORY OF PRESENT ILLNESS (HPI): Pt. is a 69 yo Right-handed male. On 07/02/2020 he was admitted to [facility] with diagnosis CAD. His impairment category is Cardiac 09 - Cardiac Disorders (). Pre-morbidly, Pt. was independent/mod-I in Locomotion, Safety Awareness, Balance, Social Cognition, T ransfers Control, Sphincter Control, Self-Care, Communication, and Endurance; and he had good Locomot ion, Safety Awareness, Balance, Social Cognition, Transfers Control, Sphincter Control, Self-Care, an d Communication. Currently, he has deficits of Locomotion, Safety Awareness, Balance, Social Cognition, Transfers Cont rol, Self-Care, Communication, Endurance, and Sphincter Control. Pt. is now referred to [facility] for acute in-patient rehabilitation in order to maximize patient's functional independence in activities of daily living, strength, ROM, and mobi lity. Patient has realistic goal of being discharged at assistance level 7-Ind to reside at Home with Fami ly/Relatives. MEDICATION ALLERGIES: No Known Drug Allergies (NKDA) ENVIRONMENTAL ALLERGIES: - Substance Allergies None Known - Other Allergies None Known PAST MEDICAL HISTORY: Acute on chronic encephalopathy Anemia BPH CAD Dementia Dependence on renal dialysis (Z99.2) HTN NSTEMI Proteus UTI Secondary hyperPTH Type 2 diabetes mellitus with diabetic neuropathy, unspecified (E11.40) SOCIAL HISTORY: - Home Living Alone REVIEW OF SYSTEMS: - Gen No Chills Fatigue No Fever - Eyes No Double Vision No itchiness - ENMT No Difficulty Swallowing - CVS Chest Discomfort No Chest Pain No Fatigue No Weight Gain - Resp No Cough No Shortness of Breath - GI Continent No Abdominal Pain No Constipation No Diarrhea - Continent No Kidney Pain No Painful Urination No Urinary Urgency - MSK No Joint Pain Muscle Cramps Stiffness - Skin No Itching No Rash No Suspicious Lesions - Neuro Coordination Difficulty No Difficulty with Concentration No Memory Loss No Seizures Weakness - Psych No Anxiety No Depression No HIV Exposure No Persistent Infections No Seasonal Allergies - Endo No Cold/Heat Intolerance No Excessive Hunger No Excessive Thirst No Excessive Urination PHYSICAL EXAM - Gen Alert and awake Lying in bed No apparent distress Oriented to: person, time, and place - Skin No breakdown Normacephalic - Eyes No abnormalities - ENMT No abnormalities - Neck No abnormalities - CVS RRR - Chest Sternal incision healing well - Resp Clear to auscultation - Abd + bowel sounds - GI Soft Deferred - No abnormalities - Ext Mild postoperative vein harvesting edema in the right lower extremity - MSK 4+/5 weakness in both lower extremities. - Neuro No focal deficits - Psych No abnormalities VITAL SIGNS Temperature: 97.2 F SBP/DBP: 155/71 Pulse: 72 Resp: 15 NURSING: - Shower allowing shower - Lab Results blood Sugar Check ACHS ACTIVITIES OOB only with supervision QI SCORES: - Self-Care A. Eating 04-Supervision or touching assistance B. Oral hygiene 04-Supervision or touching assistance C. Toileting hygiene 02-Substantial/maximal assistance E. Shower/bathe self 02-Substantial/maximal assistance F. Upper body dressing 04-Supervision or touching assistance G. Lower body dressing 02-Substantial/maximal assistance H. Putting on/taking off footwear 88-Not attempted due to medical condition or safety concerns - Mobility A. Roll left and right 03-Partial/moderate assistance B. Sit to lying 03-Partial/moderate assistance C. Lying to sitting on side of bed 03-Partial/moderate assistance D. Sit to stand 03-Partial/moderate assistance E. Chair/opo-rt-certs transfer 03-Partial/moderate assistance F. Toilet transfer 03-Partial/moderate assistance G. Car transfer 88-Not attempted due to medical condition or safety concerns I. Walk 10 feet 03-Partial/moderate assistance J. Walk 50 feet with two turns 88-Not attempted due to medical condition or safety concerns K. Walk 150 feet 04-Supervision or touching assistance L. Walking 10 feet on uneven surfaces 88-Not attempted due to medical condition or safety concerns M. 1 step (curb) 88-Not attempted due to medical condition or safety concerns N. 4 steps 88-Not attempted due to medical condition or safety concerns O. 12 steps 88-Not attempted due to medical condition or safety concerns P. Picking up object 88-Not attempted due to medical condition or safety concerns R. Wheel 50 feet with two turns 88-Not attempted due to medical condition or safety concerns S. Wheel 150 feet 88-Not attempted due to medical condition or safety concerns - Bladder and Bowel Bladder continence 0-Always continent Bowel continence 0-Always continent - Endurance Fair - Balance Fair - Safety Awareness Fair CURRENT FUNC. DEFICITS: Self-Care, Mobility, Endurance, Balance, and Safety Awareness MEDICATIONS: - Other See attached MAR (Medication Administration Record) ASSESSMENT: Pt. is a 69 yo Right-handed male.On 07/02/2020 he was admitted to [facility] with d iagnosis CAD.His impairment category is Cardiac 09 - Cardiac Disorders (09).Pre-morbidly, Pt. was in dependent/mod-I in Locomotion, Safety Awareness, Balance, Social Cognition, Transfers Control, Sphinc ter Control, Self-Care, Communication, and Endurance; and he had good Locomotion, Safety Awareness, B alance, Social Cognition, Transfers Control, Sphincter Control, Self-Care, and Communication.Currentl y, he has deficits of Locomotion, Safety Awareness, Balance, Social Cognition, Transfers Control, Deanna f-Care, Communication, Endurance, and Sphincter Control.Pt. is now referred to [facility] for acute in-patient rehabilitation in order to maximize patient's functional independenc e in activities of daily living, strength, ROM, and mobility.- Rehab Goal Patient has realistic goal of being discharged at assistance level 7-Ind to reside at Home with Fami ly/Relatives. - Physical Therapy Gait dysfunction - to improve, our physical therapists will perform initial evaluation of pt's status upon admission and devise an individualized program for Gait Training, and Wheel Chair mobility Inability to transfer - to improve, our physical therapists will perform initial evaluation of pt's s tatus upon admission and devise an individualized program for Bed mobility Need for home safety evaluation - to improve, our physical therapists will perform initial evaluation of pt's status upon admission and devise an individualized program for Home Evaluation Need in caregiver upon discharge - to improve, our physical therapists will perform initial evaluatio n of pt's status upon admission and devise an individualized program for Caregiver Training New precaution - to improve, our physical therapists will perform initial evaluation of pt's status u rocio admission and devise an individualized program for Patient precaution education Edema - to improve, our physical therapists will perform initial evaluation of pt's status upon admi ssion and devise an individualized program for Elevation Training, and Lymphedema Therapy Poor balance - to improve, our physical therapists will perform initial evaluation of pt's status upo n admission and devise an individualized program for Balance Training Poor endurance - to improve, our physical therapists will perform initial evaluation of pt's status u rocio admission and devise an individualized program for Endurance Training Weakness - to improve, our physical therapists will perform initial evaluation of pt's status upon ad mission and devise an individualized program for Aquatic Therapy, Neuromuscular Reeducation, and Stre ngthening Achieving independence - to improve, our physical therapists will perform initial evaluation of pt's status upon admission and devise an individualized program for Community Reintegration Activities - Occupational Therapy ADL deficits - to improve, our occupation therapists will perform initial evaluation of pt's status u rocio admission and devise an individualized program for Bathing, Bed mobility, Community Reintegration , Cooking, Dressing, Eating, Fine Motor Skills, Grooming, Homemaking, Kitchen Mobility, Laundry, Cheryl ent Education, Safety Awareness, Splinting - Positioning, Transfers(Toilet, Tub, Shower), and Wheel C hair Management Cognitive deficits - to improve, our occupation therapists will perform initial evaluation of pt's st atus upon admission and devise an individualized program for Cognition - orientation Need for chiropractic care - to improve, our occupation therapists will perform initial evaluation of pt's s tatus upon admission and devise an individualized program for Caregiver Training Weakness - to improve, our occupation therapists will perform initial evaluation of pt's status upon admission and devise an individualized program for Aquatic Therapy, Balance, Endurance, UE ROM, and U E strengthening MEDICAL PLAN: - Diet Type Start Regular - Diet - Liquid Texture Start Regular - Tube Feed Start N/A - Lab Results blood Sugar Check ACHS - Other See attached MAR (Medication Administration Record) - Diet - Solid Texture Regular - Shower shower DISCHARGE PLAN: - Estimated Length of Stay (days) 10. - Consensus on plan Discharge plan has been discussed with primary caregiver. Patient/Family is in agreement with the elsi n. Primary caregiver is in agreement with the plan. - Patient/Family Goals Return home independently. - Planned Living Setting Upon Discharge Home, to live with Family/Relatives. Transitional Living. Primary caregiver: Pt self. SIGNATURE PANEL: (CDT)
--- NOTE | 2020-07-24 17:09 | PAPE ---
POST ADMISSION PHYSICIAN EVALUATION PATIENT: [facility] MR# [id number] REFERRING DOCTOR Akhil Collier EVALUATION DATE AND TIME 07/24/2020 17:08 (CDT) NAME NIKOLAY SOTELO DATE OF 1950 AGE 69 PHONE ( SSN# [id number] GENDER male EVALUATING PHYSICIAN Dr. Chaitanya Roldan M.D. ADMISSION DIAGNOSIS: CAD/NSTEMI ONSET DATE 07/02/2020 SECONDARY/COMORBID DIAGNOSES TIERED: - Non-Tiered Type 2 diabetes mellitus with diabetic neuropathy, unspecified (E11.40) - N/A NSTEMI Proteus UTI Acute on chronic encephalopathy HTN Anemia Secondary hyperPTH CAD BPH Dementia - Tier 1 Dependence on renal dialysis (Z99.2) POST-ADMISSION FUNCTIONAL/MEDICAL STATUS: - Bladder Same accident frequency: 7-Ind - No accidents in the past 7 days - Bowel Same accident frequency: 7-Ind - No accidents in the past 7 days - Walking Same score based on distance walked: 0(N/A) Same score based on distance walked: 3(>=150ft) - Wheelchair Same score based on distance traveled: 0(N/A) STATUS CHANGE EVALUATION: No change in Functional or Medical Status is identified compared with Pre-Admission screening. PATIENT NEEDS CLOSE MEDICAL SUPERVISION BY A REHABILITATION PHYSICIAN FOR: Coordination of Treatment Team Diabetes Management Medical and Co-Morbidity Management Wound Care Pain Management Post-Op Complications PATIENT REQUIRES 24X7 REHAB NURSING FOR MEDICAL AND FUNCTIONAL MGT. OF THE FOLLOWING DEFICITS: Disease Management Medication Management Patient/Family Education Providing Safe Environment Skin Integrity Ambulation Transfers Pain Management Bowel and Bladder Management ADL's PATIENT REQUIRES INTENSIVE, COORDINATED INTERDISCIPLINARY APPROACH TO REHAB: Arranging Home Equipment/Services Discharge Planning Family Intervention/Training Nurse Prn/Case Management LIST OF IDENTIFIED AND POTENTIAL PROBLEMS: Alteration in leisure activities Bladder, Incontinence Bowel, Incontinence Diabetes, Hyperglycemia/hypoglycemia Issues Infection, Actual or Potential Mobility Impaired Pain, Alteration in Comfort Self Care Deficit Skin Integrity, Actual or Potential Urinary Tract Infection (UTI), Actual or Potential RISK FOR COMPLICATIONS - CAD CHF. Cardiac Arrest. CO. Pain. INTERVENTIONS - CAD 02 sats. Activity management. Medications. VS. PATIENT COULD BE AT RISK FOR COMPLICATIONS FROM ADVERSE MEDICAL CONDITIONS DUE TO HIS/HER COMORBIDITI ES AND THE RIGORS OF THE INTENSIVE REHABILLITATION PROGRAM. METHODS OR INTERVENTIONS TO AVOID COMPLIC ATIONS INCLUDE: - Bleeding Assess lab values and manage abnormalities. Nursing to teach precautions for anti-coagulation therapy . Wound to be assessed every shift. - Infection Clinical staff to assess and manage the signs and symptoms of infection including fever, redness, war mth, etc. - Urinary Tract Infection - Falls Patient will be evaluated for Fall Precautions and will be placed on Fall Precautions as indicated pe r protocol. - Skin Breakdown Nursing will assess skin daily using assessment tool and will place on Skin Breakdown Precautions as indicated per protocol. - Pain Clinical staff may employ non-medication methods such as massage, distraction, decrease stimulus, etc . as needed. Clinical staff will assess patient's pain level every shift per protocol to assess and e nsure pain management effectiveness. Medications will be given and the pain level re-assessed. PRELIMINARY PLAN OF CARE: - Physical Therapy Patient needs Physical Therapy for a daily minimum of 1.5 hours at least 5 out of 7 days, to improve: Mobility, Strengthening, Transfers, Stretching, ROM, Endurance, Ability to manage stairs, Gait, and Balance. - Speech Therapy Patient needs Speech Therapy for a daily minimum of 0.5 hours at least 5 out of 7 days, to improve: S wallowing, Cognition, Language Skills, and Compensatory Strategies. - Rehabilitation Nursing Patient requires 24x7 Rehabilitation Nursing for: Pain Issues, Identifying and preventing risk factor s, Monitoring and reporting current medical conditions, Assisting with ambulation and transfer, Danny ting with all ADL-s, Teaching patients about disease process and medications, Family teaching, Provid ing safe environment, Bowel and Bladder Issues, Skin Integrity, and Medication Management. Patient needs Nurse Prn and/or Case Management for: Discharge Planning, Arranging Home Equipmen t or Services, and Family Interventions. - Dietary and Nutrition Services Patient needs Dietary and Nutrition Services for: Adequate Nutrition, Nutritional Supplements, and Nu tritional Education. - Occupational Therapy Patient needs Occupational Therapy for a daily minimum of 1.5 hours at least 5 out of 7 days, to impr ove Activities of Daily Living, including: Eating, Grooming, Bathing, Dressing, Toileting, Toilet Tra nsfers, Community Reintegration, Higher functional activities, Adaptive Equipment, Splinting, Househo ld Tasks, and Other activities as determined. QI SCORES: - Self-Care A. Eating 04-Supervision or touching assistance B. Oral hygiene 04-Supervision or touching assistance C. Toileting hygiene 02-Substantial/maximal assistance E. Shower/bathe self 02-Substantial/maximal assistance F. Upper body dressing 04-Supervision or touching assistance G. Lower body dressing 02-Substantial/maximal assistance H. Putting on/taking off footwear 88-Not attempted due to medical condition or safety concerns - Mobility A. Roll left and right 03-Partial/moderate assistance B. Sit to lying 03-Partial/moderate assistance C. Lying to sitting on side of bed 03-Partial/moderate assistance D. Sit to stand 03-Partial/moderate assistance E. Chair/zua-xy-jhrzk transfer 03-Partial/moderate assistance F. Toilet transfer 03-Partial/moderate assistance G. Car transfer 88-Not attempted due to medical condition or safety concerns I. Walk 10 feet 03-Partial/moderate assistance J. Walk 50 feet with two turns 88-Not attempted due to medical condition or safety concerns K. Walk 150 feet 04-Supervision or touching assistance L. Walking 10 feet on uneven surfaces 88-Not attempted due to medical condition or safety concerns M. 1 step (curb) 88-Not attempted due to medical condition or safety concerns N. 4 steps 88-Not attempted due to medical condition or safety concerns O. 12 steps 88-Not attempted due to medical condition or safety concerns P. Picking up object 88-Not attempted due to medical condition or safety concerns R. Wheel 50 feet with two turns 88-Not attempted due to medical condition or safety concerns S. Wheel 150 feet 88-Not attempted due to medical condition or safety concerns - Bladder and Bowel Bladder continence 0-Always continent Bowel continence 0-Always continent - Endurance Fair - Balance Fair - Safety Awareness Fair POTENTIAL FUNCTIONAL GOALS FOR PATIENT TO ACHIEVE BY DISCHARGE: - Safety Precaution Patient will remain free from falls or injury at time of discharge. - Bed Mobility Patient will perform bed mobility at 4-Loli level of assistance. - Transfers Patient will complete transfers from bed to chair at 4-Loli level of assistance. - Mobility Patient will ambulate 150 ft with 4-Loli level of assistance with RW. PATIENT REHAB POTENTIAL Kassi SOTELO is able and expected to receive 3 hours of individualized therapy daily on at least 5 of e very 7 days Kassi SOTELO's prognosis for significant practical improvement within a reasonable period of time appea rs Good Expected level of measurable improvement will be of a practical value to Kassi SOTELO's functional capa city or adaptations to impairments Has a viable Discharge Plan Medically appropriate; condition is sufficiently stable to participate in intensive rehab program DISCHARGE PLAN: - Estimated Length of Stay (days) 10. - Consensus on plan Discharge plan has been discussed with primary caregiver. Patient/Family is in agreement with the elsi n. Primary caregiver is in agreement with the plan. - Patient/Family Goals Return home independently. - Planned Living Setting Upon Discharge Home, to live with Family/Relatives. Transitional Living. Primary caregiver: Pt self. CONCLUSION ON REHABILITATION NECESSITY: I have evaluated patient's pre-admission functional status and, comparing it to the patient's post-ad mission functional status now, I conclude that the pre-admission assessment was accurate. Patient's c ondition on admission supports the medical necessity of admission to IR[facility]. It is safe to proceed with patient's therapy program. SIGNATURE PANEL: (CDT)
[2020-07-24] MEDS: FINASTERIDE 5 MG TAB PO SCH (19:24)
[2020-07-24] MEDS: ATORVASTATIN 10 MG TAB PO SCH (19:24)
[2020-07-24] MEDS: TAMSULOSIN 0.4 MG SR CAP PO SCH (19:24)
[2020-07-24] MEDS: MELATONIN 3 MG TABLET PO PRN (19:25)
[2020-07-24 19:26] LABS: Basophils % 1.9 % (0-1.3); Hematocrit 26.4 % (39.6-49.0); Lymphocytes % 18.6 % (15.3-44.8); MPV 8.2 fL (7.6-11.3); RBC Red Blood Cell Count 2.97 M/uL (4.33-5.43)
[2020-07-24 19:53] LABS: Albumin 2.8 g/dL (3.4-5.0); Magnesium 1.8 mg/dL (1.8-2.4); Potassium 4.7 mmol/L (3.5-5.1); Prealbumin 25.7 mg/dL (20-40)
[2020-07-25] MEDS: METOPROLOL TAR 25 MG TAB PO SCH ×2 (05:40→16:44)
[2020-07-25] MEDS: LIDOCAINE 4% PATCH TOP SCH (06:32)
[2020-07-25] MEDS: LEVOTHYROXINE SOD 0.025 MG TAB PO SCH (06:32)
[2020-07-25 06:55] LABS: Albumin 2.7 g/dL (3.4-5.0); Phosphorus 4.4 mg/dL (2.5-4.9); Potassium 5.2 mmol/L (3.5-5.1)
[2020-07-25] MEDS: INSULIN LISPRO 100 UNIT/1 ML SQ SCH ×4 (07:11→23:55)
[2020-07-25] MEDS: ACETAMINOPHEN 325 MG TABLET PO PRN (07:39)
[2020-07-25] MEDS: FAMOTIDINE 20 MG TAB PO SCH (07:40)
[2020-07-25] MEDS: CALCITROL 0.25 MCG CAP PO SCH (07:40)
[2020-07-25] MEDS: ASPIRIN EC 81 MG TAB PO SCH (07:40)
[2020-07-25] MEDS: CLOPIDOGREL 75 MG TABLET PO SCH (07:40)
[2020-07-25] MEDS ORDERED: EPOETIN ALFA 10,000 UNIT/ML VIAL SQ SCH (08:00)
--- NOTE | 2020-07-25 09:49 | P.RH.PN ---
Estimated Length of Stay: 12 Expected Discharge Date: 08/03/20 Discharge Disposition Plan: Home Family Support: Yes Group Home Goal: Mobility, Transfers, Self Care Vital Signs: Last Vital Signs Temp 97.1 F 07/25/20 07:20 Pulse 68 07/25/20 07:20 Resp 16 07/25/20 07:20 BP 134/65 07/25/20 07:20 Pulse Ox 98 07/25/20 07:20 Laboratory: Laboratory Last Values WBC 5.10 K/uL (4.3-10.9) 07/24/20 18:43 RBC 2.97 M/uL (4.33-5.43) L 07/24/20 18:43 Hgb 9.0 g/dL (13.6-17.9) L 07/24/20 18:43 Hct 26.4 % (39.6-49.0) L 07/24/20 18:43 MCV 89.0 fL (80-100) 07/24/20 18:43 MCH 30.4 pg (27.0-35.0) 07/24/20 18:43 MCHC 34.1 g/dL (32.0-36.0) 07/24/20 18:43 RDW 16.0 % (12.1-15.2) H 07/24/20 18:43 Plt Count 238 K/uL (152-406) 07/24/20 18:43 MPV 8.2 fL (7.6-11.3) 07/24/20 18:43 Neutrophils % 66.5 % (41.7-73.7) 07/24/20 18:43 Lymphocytes % 18.6 % (15.3-44.8) 07/24/20 18:43 Monocytes % 11.0 % (3.3-12.3) 07/24/20 18:43 Eosinophils % 2.0 % (0-4.4) 07/24/20 18:43 Basophils % 1.9 % (0-1.3) H 07/24/20 18:43 Absolute Neutrophils 3.4 K/uL (1.8-8.0) 07/24/20 18:43 Absolute Lymphocytes 1.0 K/uL (0.7-4.9) 07/24/20 18:43 Absolute Monocytes 0.6 K/uL (0.1-1.3) 07/24/20 18:43 Absolute Eosinophils 0.1 K/uL (0-0.5) 07/24/20 18:43 Absolute Basophils 0.1 K/uL (0-0.5) 07/24/20 18:43 Sodium 138 mmol/L (136-145) 07/25/20 06:30 Potassium 5.2 mmol/L (3.5-5.1) H 07/25/20 06:30 Chloride 107 mmol/L (98-107) 07/25/20 06:30 Carbon Dioxide 24 mmol/L (21-32) 07/25/20 06:30 BUN 43 mg/dL (7-18) H 07/25/20 06:30 Creatinine 3.70 mg/dL (0.55-1.3) H 07/25/20 06:30 Estimated GFR 16 mL/min (=/>90) L 07/25/20 06:30 Glucose 220 mg/dL (74-106) H 07/25/20 06:30 POC Glucose 199 mg/dL (65-120) H 07/25/20 06:51 Calcium 8.1 mg/dL (8.5-10.1) L 07/25/20 06:30 Phosphorus 4.4 mg/dL (2.5-4.9) 07/25/20 06:30 Magnesium 1.8 mg/dL (1.8-2.4) 07/24/20 18:43 Albumin 2.7 g/dL (3.4-5.0) L 07/25/20 06:30 Prealbumin 25.7 mg/dL (20-40) 07/24/20 18:43 Urine Color Yellow (Yellow) 07/24/20 00:22 Urine Appearance Clear (Clear) 07/24/20 00:22 Urine pH 7.5 (5.0-7.0) H 07/24/20 00:22 Ur Specific D[place] <=1.005 (1.005-1.030) 07/24/20 00:22 Glucose (UA)(Auto) 2+ (Negative) H 07/24/20 00:22 Urine Ketones Negative (Negative) 07/24/20 00:22 Urine Blood Trace (Negative) H 07/24/20 00:22 Urine Nitrite Negative (Negative) 07/24/20 00:22 Urine Bilirubin Negative (Negative) 07/24/20 00: Urine Urobilinogen 0.2 mg/dL (0.2-1.0) 07/24/20 00: Ur Leukocyte Esterase Trace (Negative) H 07/24/20 00: Urine RBC <5 /HPF (NONE SEEN) 07/24/20: Urine WBC <5 /HPF (<5) 07/24/20: Ur Squamous Epith Cells <5 /HPF (NONE SEEN) 07/24/20: Ur Urothelial Cells <5 /HPF (NONE SEEN) 07/24/20: Urine Bacteria <20 /HPF (NONE SEEN) 07/24/20 00: Urine Culture Reflexed Not needed 07/24/20 00: Urine Total Protein 2+ (Negative) H 07/24/20 00: SARS-CoV-2 RNA (RT-PCR) Negative (NEGATIVE) 07/24/20 00:25 Weight: 132 lb 8 oz Wound Present: No Closed Surgical Incision Present: Yes Negative Pressure Wound Therapy Present: No Physician Update: His labs were reviewed and are stable. He has ESRD on HD three times weekly. He has mild difficulty keeping the sternal precautions with his uij-pu-vsfhve and ambulation. He has mild disconfort at the right arm port site. His right leg vein harvest site has minimal drainage with dressing change. 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 Please see the Rehabilitation Signature page for all necessary signatures.
[2020-07-25] MEDS ORDERED: EPOETIN ALFA 10,000 UNIT/ML VIAL IV SCH (12:45)
[2020-07-25] MEDS: ENOXAPARIN 30 MG/0.3 ML SQ SCH (16:03)
[2020-07-25] MEDS: EPOETIN ALFA 10,000 UNIT/ML VIAL IV SCH ×2 (17:00→22:45)
[2020-07-25] MEDS ORDERED: D50W 25 GM/50 ML VIAL IV PRN (17:00)
[2020-07-25] MEDS: FINASTERIDE 5 MG TAB PO SCH (23:53)
[2020-07-25] MEDS: MELATONIN 3 MG TABLET PO PRN (23:53)
[2020-07-25] MEDS: ATORVASTATIN 10 MG TAB PO SCH (23:54)
[2020-07-25] MEDS: TAMSULOSIN 0.4 MG SR CAP PO SCH (23:54)
[2020-07-26] MEDS: METOPROLOL TAR 25 MG TAB PO SCH ×2 (05:40→18:20)
[2020-07-26 06:47] LABS: Albumin 3.2 g/dL (3.4-5.0); Phosphorus 3.5 mg/dL (2.5-4.9); Potassium 4.4 mmol/L (3.5-5.1)
[2020-07-26] MEDS: LEVOTHYROXINE SOD 0.025 MG TAB PO SCH (06:49)
[2020-07-26] MEDS: INSULIN LISPRO 100 UNIT/1 ML SQ SCH ×3 (08:55→18:14)
[2020-07-26] MEDS: FAMOTIDINE 20 MG TAB PO SCH (08:56)
[2020-07-26] MEDS: ASPIRIN EC 81 MG TAB PO SCH (08:56)
[2020-07-26] MEDS: LIDOCAINE 4% PATCH TOP SCH (08:56)
[2020-07-26] MEDS: CLOPIDOGREL 75 MG TABLET PO SCH (08:57)
[2020-07-26] MEDS: CALCITROL 0.25 MCG CAP PO SCH (08:57)
[2020-07-26] MEDS: ACETAMINOPHEN 500 MG TAB PO PRN (12:09)
[2020-07-26] MEDS: ENOXAPARIN 30 MG/0.3 ML SQ SCH (18:16)
[2020-07-26] MEDS ORDERED: GLUCAGON 1 MG/VIAL IM PRN (18:21)
[2020-07-26] MEDS ORDERED: D50W 25 GM/50 ML SYRINGE IV PRN (18:21)
[2020-07-26] MEDS: FINASTERIDE 5 MG TAB PO SCH (20:08)
[2020-07-26] MEDS: TAMSULOSIN 0.4 MG SR CAP PO SCH (20:08)
[2020-07-26] MEDS: ATORVASTATIN 10 MG TAB PO SCH (20:09)
[2020-07-26] MEDS: INSULIN -REGULAR HUMAN 50 UNIT/0.5 ML ML SQ SCH (20:09)
[2020-07-26] MEDS: MELATONIN 3 MG TABLET PO PRN (20:09)
[2020-07-27] MEDS: ACETAMINOPHEN 500 MG TAB PO PRN ×2 (04:46→09:00)
[2020-07-27] MEDS: METOPROLOL TAR 25 MG TAB PO SCH ×2 (05:03→16:12)
[2020-07-27 05:16] VITALS: BMI 27.3
[2020-07-27 06:43] LABS: Phosphorus 4.6 mg/dL (2.5-4.9); Potassium 4.8 mmol/L (3.5-5.1)
[2020-07-27] MEDS: LEVOTHYROXINE SOD 0.025 MG TAB PO SCH (07:21)
[2020-07-27] MEDS: INSULIN -REGULAR HUMAN 50 UNIT/0.5 ML ML SQ SCH ×4 (07:30→20:10)
[2020-07-27] MEDS: LIDOCAINE 4% PATCH TOP SCH (08:25)
[2020-07-27] MEDS: CALCITROL 0.25 MCG CAP PO SCH (08:25)
[2020-07-27] MEDS: ASPIRIN EC 81 MG TAB PO SCH (08:25)
[2020-07-27] MEDS: FAMOTIDINE 20 MG TAB PO SCH (08:26)
[2020-07-27] MEDS: CLOPIDOGREL 75 MG TABLET PO SCH (08:26)
[2020-07-27] MEDS: INSULIN LISPRO 100 UNIT/1 ML SQ SCH ×3 (08:28→17:48)
[2020-07-27] MEDS ORDERED: NA CHLORIDE 0.9% 1,000 ML IV SCH (11:00)
[2020-07-27] MEDS: ENOXAPARIN 30 MG/0.3 ML SQ SCH (16:30)
--- NOTE | 2020-07-27 18:14 | RAD REPORT ---
EXAM DESCRIPTION: RAD - Abdomen 1 View (KUB) - 07/27/2020 6:04 pm CLINICAL HISTORY: Abdomen pain. FINDINGS: The bowel gas pattern is unremarkable. Moderate amount of stool is present throughout colo n Vascular calcifications are present. Pelvic calcifications probably phleboliths
[2020-07-27] MEDS: TAMSULOSIN 0.4 MG SR CAP PO SCH (20:04)
[2020-07-27] MEDS: DOCUSATE NA/SENNA CONC 1 TAB PO PRN (20:04)
[2020-07-27] MEDS: ATORVASTATIN 10 MG TAB PO SCH (20:04)
[2020-07-27] MEDS: FINASTERIDE 5 MG TAB PO SCH (20:05)
[2020-07-27] MEDS: MELATONIN 3 MG TABLET PO PRN (20:05)
--- NOTE | 2020-07-28 03:26 | PN ---
Date of Progress Note: 07/27/2020 Chief Complaint: Acute on chronic kidney injury. History Of Present Illness: Patient developed acute kidney injury with hyperazotemia and he was star pal on dialysis. Currently, he is dialysis dependent. He is scheduled to have dialysis 3 times per week. Patient is a 69-year-old man with significant past medical history of diabetes mellitus complicated b y nephropathy. He has underlying hypertension, hyperlipidemia, hepatitis C, chronic kidney disease p rogressed to end-stage renal disease. He was started on dialysis. Review of Systems: Denies fever, chills. Physical Examination: Lungs: Diminished breath sounds at bases. Heart: S1, S2. Abdomen: Soft, benign. Extremities: Trace edema. Impression And Plan: 1.End-stage renal disease. Dialysis will be done with ultrafiltration to control volemia. Monitor electrolytes. Continue renal diet with low potassium diet and low phosphorus diet. 2.Hypertension. Continue current blood pressure medication. 3.Non-ST elevation myocardial infarction, status post coronary artery bypass graft. Monitor evidenc e of angina. Continue blood pressure medications including beta blockers. 4.Renal osteodystrophy. Continue calcitriol. EB/MODL Voice ID: [id number] Report ID: [id number]
[2020-07-28] MEDS: METOPROLOL TAR 25 MG TAB PO SCH ×2 (05:01→16:47)
[2020-07-28] MEDS: ACETAMINOPHEN 500 MG TAB PO PRN ×2 (05:21→11:38)
[2020-07-28 05:34] LABS: Albumin 2.9 g/dL (3.4-5.0); Phosphorus 4.9 mg/dL (2.5-4.9); Potassium 5.1 mmol/L (3.5-5.1)
[2020-07-28] MEDS: LEVOTHYROXINE SOD 0.025 MG TAB PO SCH (06:29)
[2020-07-28] MEDS: INSULIN -REGULAR HUMAN 50 UNIT/0.5 ML ML SQ SCH ×4 (07:30→19:55)
[2020-07-28] MEDS: CLOPIDOGREL 75 MG TABLET PO SCH (08:09)
[2020-07-28] MEDS: CALCITROL 0.25 MCG CAP PO SCH (08:09)
[2020-07-28] MEDS: LIDOCAINE 4% PATCH TOP SCH (08:10)
[2020-07-28] MEDS: FAMOTIDINE 20 MG TAB PO SCH (08:10)
[2020-07-28] MEDS: INSULIN LISPRO 100 UNIT/1 ML SQ SCH ×3 (08:10→16:47)
[2020-07-28] MEDS: ASPIRIN EC 81 MG TAB PO SCH (08:10)
--- NOTE | 2020-07-28 16:04 | FAST ---
[employer] FORM SHIFT START DATE/TIME: 07/28/2020 07:00 (CDT) SHIFT END DATE/TIME: 07/28/2020 19:00 (CDT) NAME NIKOLAY SOTELO DATE OF : 1950 DATE OF ADMISSION: 07/23/2020 11:08 (CDT) PHONE: ( AGE: 69 SSN# [id number] GENDER: Male ENCOUNTER PHYSICIAN: Dr. Chaitanya Roldan M.D. ADMISSION DIAGNOSIS: - Cardiac 09 - Cardiac Disorders () CAD/NSTEMI. EATING: EATING - STEP 1: Does the patient complete the activity by him/herself with no assistance (physical, verbal/nonverbal cueing, setup/clean-up)? No. EATING - STEP 2: Does the patient need only setup/clean-up assistance from one helper? Yes. 1. [id number] ADMISSION PERFORMANCE: Setup or clean-up assistance CODE: 05 ORAL HYGIENE: ORAL HYGIENE - STEP 1: Does the patient complete the activity by him/herself with no assistance (physical, verbal/nonverbal cueing, setup/clean-up)? No. ORAL HYGIENE - STEP 2: Does the patient need only setup/clean-up assistance from one helper? Yes. 1. [id number] ADMISSION PERFORMANCE: Setup or clean-up assistance CODE: 05 TOILETING HYGIENE: TOILETING HYGIENE - STEP 1: Does the patient complete the activity by him/herself with no assistance (physical, verbal/nonverbal cueing, setup/clean-up)? No. TOILETING HYGIENE - STEP 2: Does the patient need only setup/clean-up assistance from one helper? Yes. 1. [id number] ADMISSION PERFORMANCE: Setup or clean-up assistance CODE: 05 BATHING: Not assessed/no information CODE: - DRESSING - UPPER BODY: DRESSING - UPPER BODY - STEP 1: Does the patient complete the activity by him/herself with no assistance (physical, verbal/nonverbal cueing, setup/clean-up)? No. DRESSING - UPPER BODY - STEP 2: Does the patient need only setup/clean-up assistance from one helper? Yes. 1. [id number] ADMISSION PERFORMANCE: Setup or clean-up assistance CODE: 05 DRESSING - LOWER BODY: DRESSING - LOWER BODY - STEP 1: Does the patient complete the activity by him/herself with no assistance (physical, verbal/nonverbal cueing, setup/clean-up)? No. DRESSING - LOWER BODY - STEP 2: Does the patient need only setup/clean-up assistance from one helper? Yes. 1. [id number] ADMISSION PERFORMANCE: Setup or clean-up assistance CODE: 05 PUTTING ON/TAKING OFF FOOTWEAR: Not assessed/no information CODE: - ROLL LEFT AND RIGHT: ROLL LEFT AND RIGHT - STEP 1: Does the patient complete the activity by him/herself with no assistance (physical, verbal/nonverbal cueing, setup/clean-up)? No. ROLL LEFT AND RIGHT - STEP 2: Does the patient need only setup/clean-up assistance from one helper? Yes. 1. [id number] ADMISSION PERFORMANCE: Setup or clean-up assistance CODE: 05 SIT TO LYING: SIT TO LYING - STEP 1: Does the patient complete the activity by him/herself with no assistance (physical, verbal/nonverbal cueing, setup/clean-up)? No. SIT TO LYING - STEP 2: Does the patient need only setup/clean-up assistance from one helper? Yes. 1. [id number] ADMISSION PERFORMANCE: Setup or clean-up assistance CODE: 05 LYING TO SITTING: LYING TO SITTING ON SIDE OF BED - STEP 1: Does the patient complete the activity by him/herself with no assistance (physical, verbal/nonverbal cueing, setup/clean-up)? No. LYING TO SITTING ON SIDE OF BED - STEP 2: Does the patient need only setup/clean-up assistance from one helper? Yes. 1. [id number] ADMISSION PERFORMANCE: Setup or clean-up assistance CODE: 05 SIT TO STAND: SIT TO STAND - STEP 1: Does the patient complete the activity by him/herself with no assistance (physical, verbal/nonverbal cueing, setup/clean-up)? No. SIT TO STAND - STEP 2: Does the patient need only setup/clean-up assistance from one helper? Yes. 1. [id number] ADMISSION PERFORMANCE: Setup or clean-up assistance CODE: 05 TRANSFERS: BED, CHAIR: CHAIR/[id number] TRANSFER - STEP 1: Does the patient complete the activity by him/herself with no assistance (physical, verbal/nonverbal cueing, setup/clean-up)? No. CHAIR/[id number] TRANSFER - STEP 2: Does the patient need only setup/clean-up assistance from one helper? Yes. 1. [id number] ADMISSION PERFORMANCE: Setup or clean-up assistance CODE: 05 TRANSFER TOILET: TOILET TRANSFER - STEP 1: Does the patient complete the activity by him/herself with no assistance (physical, verbal/nonverbal cueing, setup/clean-up)? No. TOILET TRANSFER - STEP 2: Does the patient need only setup/clean-up assistance from one helper? Yes. 1. [id number] ADMISSION PERFORMANCE: Setup or clean-up assistance CODE: 05 TRANSFERS: CAR: Not assessed/no information CODE: - WALK 10 FEET: Not assessed/no information CODE: - 1 STEP (CURB): Not assessed/no information CODE: - PICKING UP OBJECT: Not assessed/no information CODE: - DOES THE PATIENT USE A WHEELCHAIR/SCOOTER? Q1. DOES THE PATIENT USE A WHEELCHAIR/SCOOTER?: Yes CODE: 1 WHEEL 50 FEET WITH TWO TURNS: WHEEL 50 FEET WITH TWO TURNS - STEP 1: Does the patient complete the activity by him/herself with no assistance (physical, verbal/nonverbal cueing, setup/clean-up)? Yes. 1. [id number] ADMISSION PERFORMANCE: Independent CODE: 06 INDICATE THE TYPE OF WHEELCHAIR/SCOOTER USED: RR1. INDICATE THE TYPE OF WHEELCHAIR/SCOOTER USED.: Manual CODE: 1 WHEEL 150 FEET: WHEEL 150 FEET - STEP 1: Does the patient complete the activity by him/herself with no assistance (physical, verbal/nonverbal cueing, setup/clean-up)? Yes. 1. [id number] ADMISSION PERFORMANCE: Independent CODE: 06 INDICATE THE TYPE OF WHEELCHAIR/SCOOTER USED: SS1. INDICATE THE TYPE OF WHEELCHAIR/SCOOTER USED.: Manual CODE: 1 BLADDER AND BOWEL: H350. BLADDER CONTINENCE (3-DAY ASSESSMENT PERIOD): Always continent (no documented incontinence) CODE: 0 H400. BOWEL CONTINENCE (3-DAY ASSESSMENT PERIOD): Always continent CODE: 0 SIGNATURE PANEL: The following modified sections: 1. [id number] Admission Performance, 1. [id number] Admission Performance, 1. [id number] Admission Performance, 1. IU0342i Admission Performance, 1. [id number] Admission Performance, 1. [id number] Admission Performance, 1. [id number] Admission Performance, 1. [id number] Admission Performance , 1. [id number] Admission Performance, 1. [id number] Admission Performance, 1. [id number] Admission Performanc e, Q1. Does the patient use a wheelchair/scooter?, 1. [id number] Admission Performance, RR1. Indicate th e type of wheelchair/scooter used., 1. [id number] Admission Performance, Code, SS1. Indicate the type of wheelchair/scooter used., H350. Bladder Continence (3-day assessment period), H400. Bowel Continence (3-day assessment period) were [electronically] signed by Mily Hernandez C.N.A. on WedJul 28 2020 16 :03:01 T-0500 (Central Daylight Time)
[2020-07-28] MEDS: ENOXAPARIN 30 MG/0.3 ML SQ SCH (16:47)
[2020-07-28] MEDS: TAMSULOSIN 0.4 MG SR CAP PO SCH (19:55)
[2020-07-28] MEDS: FINASTERIDE 5 MG TAB PO SCH (19:55)
[2020-07-28] MEDS: ATORVASTATIN 10 MG TAB PO SCH (19:55)
[2020-07-28] MEDS: MELATONIN 3 MG TABLET PO PRN (19:56)
--- NOTE | 2020-07-29 00:41 | PN ---
Date of Progress Note: 07/28/2020 Chief Complaint: Acute on chronic kidney injury. History Of Present Illness: Patient has advanced chronic kidney disease. The patient was found to h ave a hyperazotemia and he was started on dialysis. 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 The patient pro gressed to end-stage renal disease and he was started on dialysis 3 times per week. The patient was found to have borderline hyperkalemia today and dialysis was done with 2 potassium dialysate. Review of Systems: Denies fever, chills. Physical Examination: Lungs: Diminished breath sounds at bases. Heart: S1, S2. Abdomen: Soft, benign. Extremities: Trace edema. Impression And Plan: 1.End-stage renal disease. Continue dialysis 3 times per week. Dialysis was done with ultrafiltrat ion to control diet and fluid overload. Monitor daily intake and continue low-sodium diet with p.o. fluid restriction. 2.Hypertension. Continue blood pressure medication. 3.Non-ST elevation myocardial infarction, status post coronary artery bypass graft. Monitor evidenc e of angina. Patient tolerated dialysis. He was asymptomatic and hemodynamically stable. The patie nt will continue beta declan according to Cardiology. 4.Renal osteodystrophy. Continue calcitriol. Monitor phosphorus and calcium level. EB/MODL Voice ID: [id number] Report ID: [id number]
[2020-07-29 03:30] LABS: HBsAG Nonreactive (Nonreactive)
[2020-07-29] MEDS: METOPROLOL TAR 25 MG TAB PO SCH ×2 (05:10→17:16)
[2020-07-29 06:08] LABS: Phosphorus 3.9 mg/dL (2.5-4.9); Potassium 4.6 mmol/L (3.5-5.1)
[2020-07-29] MEDS: LIDOCAINE 4% PATCH TOP SCH (06:24)
[2020-07-29] MEDS: LEVOTHYROXINE SOD 0.025 MG TAB PO SCH (06:24)
[2020-07-29] MEDS: INSULIN -REGULAR HUMAN 50 UNIT/0.5 ML ML SQ SCH ×4 (07:30→19:58)
[2020-07-29] MEDS: ACETAMINOPHEN 500 MG TAB PO PRN ×2 (07:58→19:57)
[2020-07-29] MEDS: INSULIN LISPRO 100 UNIT/1 ML SQ SCH ×3 (07:58→17:15)
[2020-07-29] MEDS: ASPIRIN EC 81 MG TAB PO SCH (07:59)
[2020-07-29] MEDS: CLOPIDOGREL 75 MG TABLET PO SCH (07:59)
[2020-07-29] MEDS: FAMOTIDINE 20 MG TAB PO SCH (07:59)
[2020-07-29] MEDS: CALCITROL 0.25 MCG CAP PO SCH (07:59)
[2020-07-29] MEDS ORDERED: DIPHENHYDRAMINE 25 MG TAB/CAP PO PRN (13:46)
[2020-07-29] MEDS: ENOXAPARIN 30 MG/0.3 ML SQ SCH (17:15)
--- NOTE | 2020-07-29 17:31 | R.PN ---
PROGRESS NOTES ENCOUNTER DATE AND TIME: 07/29/2020 17:24 (CDT) NAME NIKOLAY SOTELO DATE OF : 1950 DATE OF ADMISSION: 07/23/2020 11:08 (CDT) CAD/NSTEMICHIEF COMPLAINT: CAD, NSTEMI, debility SUBJECTIVE: Pt denied any depression. Pt denied any Shortness of Breath. WBC 5.1, Hgb 9.0, Machine Room Engineer 2.66, glucose 150 to 167, UA trace esterase, COVID-19 negative. Ambulated 1250' with contact guard assistance using a rolling walker. VITAL SIGNS Temperature: 97.3 F SBP/DBP: 154/73 Pulse: 69 Resp: 16 MEDICATION ALLERGIES: No Known Drug Allergies (NKDA) ENVIRONMENTAL ALLERGIES: - Substance Allergies None Known - Other Allergies None Known NURSING: - Shower allowing shower - Lab Results blood Sugar Check ACHS ACTIVITIES OOB only with supervision THERAPIES: - Dietary and Nutrition Adequate Nutrition. Nutritional Education. Nutritional Supplements. PHYSICAL EXAM - Gen Alert and awake Lying in bed No apparent distress Oriented to: person, time, and place - Skin No breakdown Normacephalic - Eyes No abnormalities - ENMT No abnormalities - Neck No abnormalities - CVS RRR - Chest Sternal incision healing well - Resp Clear to auscultation - Abd + bowel sounds - GI Soft Deferred - No abnormalities - Ext Mild postoperative vein harvesting edema in the right lower extremity - MSK 4+/5 weakness in both lower extremities. - Neuro No focal deficits - Psych No abnormalities ASSESSMENT: Pt. is a 69 yo Right-handed male.On 07/02/2020 he was admitted to [facility] with d iagnosis CAD.His impairment category is Cardiac 09 - Cardiac Disorders (09).Pre-morbidly, Pt. was in dependent/mod-I in Locomotion, Safety Awareness, Balance, Social Cognition, Transfers Control, Sphinc ter Control, Self-Care, Communication, and Endurance; and he had good Locomotion, Safety Awareness, B alance, Social Cognition, Transfers Control, Sphincter Control, Self-Care, and Communication.Currentl y, he has deficits of Locomotion, Safety Awareness, Balance, Social Cognition, Transfers Control, Deanna f-Care, Communication, Endurance, and Sphincter Control.Pt. is now referred to [facility] for acute in-patient rehabilitation in order to maximize patient's functional independenc e in activities of daily living, strength, ROM, and mobility.- Rehab Goal Patient has realistic goal of being discharged at assistance level 7-Ind to reside at Home with Fami ly/Relatives. MDM/PLAN: - Physical Therapy Gait dysfunction - to improve, our physical therapists will perform initial evaluation of pt's statu s upon admission and devise an individualized program for Gait Training, and Wheel Chair mobility Inability to transfer - to improve, our physical therapists will perform initial evaluation of pt's status upon admission and devise an individualized program for Bed mobility Need for home safety evaluation - to improve, our physical therapists will perform initial evaluatio n of pt's status upon admission and devise an individualized program for Home Evaluation Need in caregiver upon discharge - to improve, our physical therapists will perform initial evaluati on of pt's status upon admission and devise an individualized program for Caregiver Training New precaution - to improve, our physical therapists will perform initial evaluation of pt's status upon admission and devise an individualized program for Patient precaution education Edema - to improve, our physical therapists will perform initial evaluation of pt's status upon admis benjamin and devise an individualized program for Elevation Training, and Lymphedema Therapy Poor balance - to improve, our physical therapists will perform initial evaluation of pt's status up on admission and devise an individualized program for Balance Training Poor endurance - to improve, our physical therapists will perform initial evaluation of pt's status upon admission and devise an individualized program for Endurance Training Weakness - to improve, our physical therapists will perform initial evaluation of pt's status upon a dmission and devise an individualized program for Aquatic Therapy, Neuromuscular Reeducation, and Str engthening Achieving independence - to improve, our physical therapists will perform initial evaluation of pt's status upon admission and devise an individualized program for Community Reintegration Activities - Occupational Therapy ADL deficits - to improve, our occupation therapists will perform initial evaluation of pt's status upon admission and devise an individualized program for Bathing, Bed mobility, Community Reintegratio n, Cooking, Dressing, Eating, Fine Motor Skills, Grooming, Homemaking, Kitchen Mobility, Laundry, Pat ient Education, Safety Awareness, Splinting - Positioning, Transfers(Toilet, Tub, Shower), and Wheel Chair Management Cognitive deficits - to improve, our occupation therapists will perform initial evaluation of pt's s tatus upon admission and devise an individualized program for Cognition - orientation Need for managed care nurse - to improve, our occupation therapists will perform initial evaluation of pt's status upon admission and devise an individualized program for Caregiver Training Weakness - to improve, our occupation therapists will perform initial evaluation of pt's status upon admission and devise an individualized program for Aquatic Therapy, Balance, Endurance, UE ROM, and UE strengthening - Other See attached MAR (Medication Administration Record) - Diet Type Continue Regular - Diet - Liquid Texture Continue Regular - Tube Feed Continue N/A - Lab Results blood Sugar Check ACHS - Diet - Solid Texture Continue Regular - Shower allowing shower FUNCTIONAL STATUS: UPDATED AT WEEKLY TEAM CONFERENCE - Bladder Same accident frequency: 7-Ind - No accidents in the past 7 days - Bowel Same accident frequency: 7-Ind - No accidents in the past 7 days - Walking Same score based on distance walked: 0(N/A) Same score based on distance walked: 3(>=150ft) - Wheelchair Same score based on distance traveled: 0(N/A) FUNCTIONAL STATUS: - Self-Care A. Eating Lety B. Grooming sup C. Bathing Loli D. Dressing - Upper Loli E. Dressing - Lower modA F. Toileting Loli - Sphincter Control G. Bladder control Loli H. Bowel control Loli - Transfers Control I. Bed/Chair/Wheelchair sup J. Toilet sup K. Tub/Shower sup - Locomotion L. Walk/Wheelchair (B) Loli M. Stairs modA - Communication N. Comprehension (B) Loli O. Expression (B) sup - Social Cognition P. Social Interaction sup Q. Problem Solving sup R. Memory sup - Endurance Good - Balance Fair - Safety Awareness Fair QI SCORES: - Self-Care A. Eating 04-Supervision or touching assistance B. Oral hygiene 04-Supervision or touching assistance C. Toileting hygiene 02-Substantial/maximal assistance E. Shower/bathe self 02-Substantial/maximal assistance F. Upper body dressing 04-Supervision or touching assistance G. Lower body dressing 02-Substantial/maximal assistance H. Putting on/taking off footwear 88-Not attempted due to medical condition or safety concerns - Mobility A. Roll left and right 03-Partial/moderate assistance B. Sit to lying 03-Partial/moderate assistance C. Lying to sitting on side of bed 03-Partial/moderate assistance D. Sit to stand 03-Partial/moderate assistance E. Chair/rxe-[id number] transfer 03-Partial/moderate assistance F. Toilet transfer 03-Partial/moderate assistance G. Car transfer 88-Not attempted due to medical condition or safety concerns I. Walk 10 feet 03-Partial/moderate assistance J. Walk 50 feet with two turns 88-Not attempted due to medical condition or safety concerns K. Walk 150 feet 04-Supervision or touching assistance L. Walking 10 feet on uneven surfaces 88-Not attempted due to medical condition or safety concerns M. 1 step (curb) 88-Not attempted due to medical condition or safety concerns N. 4 steps 88-Not attempted due to medical condition or safety concerns O. 12 steps 88-Not attempted due to medical condition or safety concerns P. Picking up object 88-Not attempted due to medical condition or safety concerns R. Wheel 50 feet with two turns 88-Not attempted due to medical condition or safety concerns S. Wheel 150 feet 88-Not attempted due to medical condition or safety concerns - Bladder and Bowel Bladder continence 0-Always continent Bowel continence 0-Always continent - Endurance Fair - Balance Fair - Safety Awareness Fair [facility] DEFIC[facility]: Self-Care, Mobility, Endurance, Balance, and Safety Awareness SIGNATURE PANEL: (CDT)
[2020-07-29] MEDS: FINASTERIDE 5 MG TAB PO SCH (19:57)
[2020-07-29] MEDS: TAMSULOSIN 0.4 MG SR CAP PO SCH (19:57)
[2020-07-29] MEDS: ATORVASTATIN 10 MG TAB PO SCH (19:57)
[2020-07-29] MEDS: MELATONIN 3 MG TABLET PO PRN (19:57)
--- NOTE | 2020-07-30 03:18 | PN ---
Chief Complaint: Acute on chronic kidney injury. Subjective: Patient with advanced chronic kidney disease. Patient was found to have and dialysis was started. Patient has underlying chronic kidney disease due to diabetic nephropathy. Th e patient may require kidney biopsy to rule out hepatitis C related glomerulonephritis. The patient progressed to end-stage renal disease. He was started on dialysis. Patient was found to have border line hyperkalemia and received dialysis. With 2 potassium dialysate, potassium level has improved. Review of Systems: Denies fever or chills. Objective: Lungs: Diminished breath sounds at bases. Heart: S1, S2. Abdomen: Soft, benign. Extremities: Trace edema. Impression And Plan: 1.End-stage renal disease. Next dialysis tomorrow. Edema of the legs. fluid overload. Continue p.o. fluid restriction, low-sodium diet and advance ultrafiltration, control volemia. 2.Non-ST elevation myocardial infarction status post coronary artery bypass. angina. Th e patient remains hemodynamically stable and was asymptomatic during dialysis. 3.Renal osteodystrophy. Monitor phosphorus level and calcium level. EB/MODL Voice ID: [id number] Report ID: [id number]
[2020-07-30] MEDS: METOPROLOL TAR 25 MG TAB PO SCH ×2 (05:30→17:29)
[2020-07-30] MEDS: LEVOTHYROXINE SOD 0.025 MG TAB PO SCH (06:30)
--- NOTE | 2020-07-30 06:51 | P.PN ---
Subjective Date of Service: 07/30/20 Chief Complaint: ESRD, gen weakness No c/o chest pain or palpitations. Physical Examination - Vital Signs Temperature: 98.6 F Blood Pressure: 136/73 Pulse: 74 Respirations: 18 Pulse Ox (%): 99 - Physical Exam General: In no apparent distress HEENT: Atraumatic, Normocephalic Neck: Supple Respiratory: Normal air movement Cardiovascular: No rubs, No murmurs Gastrointestinal: Soft and benign Musculoskeletal: No swelling Integumentary: Other (Normal temp) Neurological: Normal tone Urinary: Other (No bladder distention) Assessment And Plan - Plan # ESRD on HD TTSat HD today HD access: TDC Renal vitamin po daily Renal, heart-healthy diet Monitor renal panel # BPH Conf flomax + proscar # Recent proteus UTI Received abx Renal US showed multiple L nephrolithiases, which may cause recurrent UTI # NSTEMI S/p CABG on 07/15/20 # Htn Cont current BP regimen # Anemia Ferrlicit qSat; recheck iron Epo qTTS # Secondary hyperPTH PTH high - cont calcitriol 25OHD low - cont D suppl # Debility PT/OT # Dispo Plan to dc from acute rehab this Wednesday
[2020-07-30] MEDS: INSULIN -REGULAR HUMAN 50 UNIT/0.5 ML ML SQ SCH ×4 (07:30→21:00)
[2020-07-30] MEDS: ACETAMINOPHEN 500 MG TAB PO PRN ×2 (07:55→22:55)
[2020-07-30] MEDS: INSULIN LISPRO 100 UNIT/1 ML SQ SCH ×3 (07:55→16:32)
[2020-07-30] MEDS: ASPIRIN EC 81 MG TAB PO SCH (07:56)
[2020-07-30] MEDS: CLOPIDOGREL 75 MG TABLET PO SCH (07:56)
[2020-07-30] MEDS: FAMOTIDINE 20 MG TAB PO SCH (07:56)
[2020-07-30] MEDS: CALCITROL 0.25 MCG CAP PO SCH (07:56)
[2020-07-30] MEDS: LIDOCAINE 4% PATCH TOP SCH (12:32)
[2020-07-30] MEDS: ENOXAPARIN 30 MG/0.3 ML SQ SCH (16:33)
--- NOTE | 2020-07-30 18:38 | R.PN ---
PROGRESS NOTES ENCOUNTER DATE AND TIME: 07/30/2020 18:35 (CDT) NAME NIKOLAY SOTELO DATE OF : 1950 DATE OF ADMISSION: 07/23/2020 11:08 (CDT) CAD/NSTEMICHIEF COMPLAINT: CAD, NSTEMI, debility SUBJECTIVE: Pt denied any depression. Pt denied any Shortness of Breath. WBC 5.1, Hgb 9.0, Braille Translator 2.66, glucose 90 to 202, UA trace esterase, COVID-19 negative. Ambulated 500' with standby assistance using a rolling walker. Self-propelled wheelchair 500' with in dependence. VITAL SIGNS Temperature: 98.6 F SBP/DBP: 136/73 Pulse: 74 Resp: 16 MEDICATION ALLERGIES: No Known Drug Allergies (NKDA) ENVIRONMENTAL ALLERGIES: - Substance Allergies None Known - Other Allergies None Known NURSING: - Shower allowing shower - Lab Results blood Sugar Check ACHS ACTIVITIES OOB only with supervision THERAPIES: - Dietary and Nutrition Adequate Nutrition. Nutritional Education. Nutritional Supplements. PHYSICAL EXAM - Gen Alert and awake Lying in bed No apparent distress Oriented to: person, time, and place - Skin No breakdown Normacephalic - Eyes No abnormalities - ENMT No abnormalities - Neck No abnormalities - CVS RRR - Chest Sternal incision healing well - Resp Clear to auscultation - Abd + bowel sounds - GI Soft Deferred - No abnormalities - Ext Mild postoperative vein harvesting edema in the right lower extremity - MSK 4+/5 weakness in both lower extremities. - Neuro No focal deficits - Psych No abnormalities ASSESSMENT: Pt. is a 69 yo Right-handed male.On 07/02/2020 he was admitted to [facility] with d iagnosis CAD.His impairment category is Cardiac 09 - Cardiac Disorders (09).Pre-morbidly, Pt. was in dependent/mod-I in Locomotion, Safety Awareness, Balance, Social Cognition, Transfers Control, Sphinc ter Control, Self-Care, Communication, and Endurance; and he had good Locomotion, Safety Awareness, B alance, Social Cognition, Transfers Control, Sphincter Control, Self-Care, and Communication.Currentl y, he has deficits of Locomotion, Safety Awareness, Balance, Social Cognition, Transfers Control, Deanna f-Care, Communication, Endurance, and Sphincter Control.Pt. is now referred to [facility] for acute in-patient rehabilitation in order to maximize patient's functional independenc e in activities of daily living, strength, ROM, and mobility.- Rehab Goal Patient has realistic goal of being discharged at assistance level 7-Ind to reside at Home with Fami ly/Relatives. MDM/PLAN: - Physical Therapy Gait dysfunction - to improve, our physical therapists will perform initial evaluation of pt's statu s upon admission and devise an individualized program for Gait Training, and Wheel Chair mobility Inability to transfer - to improve, our physical therapists will perform initial evaluation of pt's status upon admission and devise an individualized program for Bed mobility Need for home safety evaluation - to improve, our physical therapists will perform initial evaluatio n of pt's status upon admission and devise an individualized program for Home Evaluation Need in caregiver upon discharge - to improve, our physical therapists will perform initial evaluati on of pt's status upon admission and devise an individualized program for Caregiver Training New precaution - to improve, our physical therapists will perform initial evaluation of pt's status upon admission and devise an individualized program for Patient precaution education Edema - to improve, our physical therapists will perform initial evaluation of pt's status upon admi ssion and devise an individualized program for Elevation Training, and Lymphedema Therapy Poor balance - to improve, our physical therapists will perform initial evaluation of pt's status up on admission and devise an individualized program for Balance Training Poor endurance - to improve, our physical therapists will perform initial evaluation of pt's status upon admission and devise an individualized program for Endurance Training Weakness - to improve, our physical therapists will perform initial evaluation of pt's status upon a dmission and devise an individualized program for Aquatic Therapy, Neuromuscular Reeducation, and Str engthening Achieving independence - to improve, our physical therapists will perform initial evaluation of pt's status upon admission and devise an individualized program for Community Reintegration Activities - Occupational Therapy ADL deficits - to improve, our occupation therapists will perform initial evaluation of pt's status upon admission and devise an individualized program for Bathing, Bed mobility, Community Reintegratio n, Cooking, Dressing, Eating, Fine Motor Skills, Grooming, Homemaking, Kitchen Mobility, Laundry, Pat ient Education, Safety Awareness, Splinting - Positioning, Transfers(Toilet, Tub, Shower), and Wheel Chair Management Cognitive deficits - to improve, our occupation therapists will perform initial evaluation of pt's s tatus upon admission and devise an individualized program for Cognition - orientation Need for resident care provider - to improve, our occupation therapists will perform initial evaluation of pt's status upon admission and devise an individualized program for Caregiver Training Weakness - to improve, our occupation therapists will perform initial evaluation of pt's status upon admission and devise an individualized program for Aquatic Therapy, Balance, Endurance, UE ROM, and UE strengthening - Other See attached MAR (Medication Administration Record) - Diet Type Continue Regular - Diet - Liquid Texture Continue Regular - Tube Feed Continue N/A - Lab Results blood Sugar Check ACHS - Diet - Solid Texture Continue Regular - Shower allowing shower FUNCTIONAL STATUS: UPDATED AT WEEKLY TEAM CONFERENCE - Bladder Same accident frequency: 7-Ind - No accidents in the past 7 days - Bowel Same accident frequency: 7-Ind - No accidents in the past 7 days - Walking Same score based on distance walked: 0(N/A) Same score based on distance walked: 3(>=150ft) - Wheelchair Same score based on distance traveled: 0(N/A) FUNCTIONAL STATUS: - Self-Care A. Eating Lety B. Grooming sup C. Bathing Loli D. Dressing - Upper Loli E. Dressing - Lower modA F. Toileting Loli - Sphincter Control G. Bladder control Loli H. Bowel control Loli - Transfers Control I. Bed/Chair/Wheelchair sup J. Toilet sup K. Tub/Shower sup - Locomotion L. Walk/Wheelchair (B) Loli M. Stairs modA - Communication N. Comprehension (B) Loli O. Expression (B) sup - Social Cognition P. Social Interaction sup Q. Problem Solving sup R. Memory sup - Endurance Good - Balance Fair - Safety Awareness Fair QI SCORES: - Self-Care A. Eating 04-Supervision or touching assistance B. Oral hygiene 04-Supervision or touching assistance C. Toileting hygiene 02-Substantial/maximal assistance E. Shower/bathe self 02-Substantial/maximal assistance F. Upper body dressing 04-Supervision or touching assistance G. Lower body dressing 02-Substantial/maximal assistance H. Putting on/taking off footwear 88-Not attempted due to medical condition or safety concerns - Mobility A. Roll left and right 03-Partial/moderate assistance B. Sit to lying 03-Partial/moderate assistance C. Lying to sitting on side of bed 03-Partial/moderate assistance D. Sit to stand 03-Partial/moderate assistance E. Chair/vmn-gn-cfnvl transfer 03-Partial/moderate assistance F. Toilet transfer 03-Partial/moderate assistance G. Car transfer 88-Not attempted due to medical condition or safety concerns I. Walk 10 feet 03-Partial/moderate assistance J. Walk 50 feet with two turns 88-Not attempted due to medical condition or safety concerns K. Walk 150 feet 04-Supervision or touching assistance L. Walking 10 feet on uneven surfaces 88-Not attempted due to medical condition or safety concerns M. 1 step (curb) 88-Not attempted due to medical condition or safety concerns N. 4 steps 88-Not attempted due to medical condition or safety concerns O. 12 steps 88-Not attempted due to medical condition or safety concerns P. Picking up object 88-Not attempted due to medical condition or safety concerns R. Wheel 50 feet with two turns 88-Not attempted due to medical condition or safety concerns S. Wheel 150 feet 88-Not attempted due to medical condition or safety concerns - Bladder and Bowel Bladder continence 0-Always continent Bowel continence 0-Always continent - Endurance Fair - Balance Fair - Safety Awareness Fair CURRENT [facility]. DEFICITS: Self-Care, Mobility, Endurance, Balance, and Safety Awareness SIGNATURE PANEL: (CDT)
[2020-07-30] MEDS ORDERED: EPOETIN ALFA-EPBX 4,000 UNIT/ML VIAL SQ SCH (20:00)
[2020-07-30] MEDS: ATORVASTATIN 10 MG TAB PO SCH (22:53)
[2020-07-30] MEDS: FINASTERIDE 5 MG TAB PO SCH (22:55)
[2020-07-30] MEDS: TAMSULOSIN 0.4 MG SR CAP PO SCH (22:55)
[2020-07-31] MEDS: METOPROLOL TAR 25 MG TAB PO SCH ×2 (05:22→17:00)
[2020-07-31] MEDS: LEVOTHYROXINE SOD 0.025 MG TAB PO SCH (06:41)
[2020-07-31] MEDS: LIDOCAINE 4% PATCH TOP SCH (06:41)
[2020-07-31] MEDS: INSULIN -REGULAR HUMAN 50 UNIT/0.5 ML ML SQ SCH ×4 (07:30→20:14)
[2020-07-31] MEDS: ACETAMINOPHEN 500 MG TAB PO PRN (07:49)
[2020-07-31] MEDS: INSULIN LISPRO 100 UNIT/1 ML SQ SCH ×3 (07:49→17:00)
[2020-07-31] MEDS: CALCITROL 0.25 MCG CAP PO SCH (07:50)
[2020-07-31] MEDS: FAMOTIDINE 20 MG TAB PO SCH (07:50)
[2020-07-31] MEDS: ASPIRIN EC 81 MG TAB PO SCH (07:50)
[2020-07-31] MEDS: CLOPIDOGREL 75 MG TABLET PO SCH (07:50)
[2020-07-31] MEDS: MULTIVITAMINS,THERAPEUT 1 TAB PO SCH (07:51)
[2020-07-31] MEDS: ENOXAPARIN 30 MG/0.3 ML SQ SCH (17:01)
--- NOTE | 2020-07-31 19:22 | R.PN ---
PROGRESS NOTES ENCOUNTER DATE AND TIME: 07/31/2020 19:19 (CDT) NAME NIKOLAY SOTELO DATE OF : 1950 DATE OF ADMISSION: 07/23/2020 11:08 (CDT) CAD/NSTEMICHIEF COMPLAINT: CAD, NSTEMI, debility SUBJECTIVE: Pt denied any depression. Pt denied any Shortness of Breath. WBC 5.1, Hgb 9.0, Call Person 2.66, glucose 70 to 180, UA trace esterase, COVID-19 negative. Ambulated 1000' with contact guard assistance using a rolling walker. VITAL SIGNS Temperature: 99 F SBP/DBP: 146/75 Pulse: 70 Resp: 15 MEDICATION ALLERGIES: No Known Drug Allergies (NKDA) ENVIRONMENTAL ALLERGIES: - Substance Allergies None Known - Other Allergies None Known NURSING: - Shower allowing shower - Lab Results blood Sugar Check ACHS ACTIVITIES OOB only with supervision THERAPIES: - Dietary and Nutrition Adequate Nutrition. Nutritional Education. Nutritional Supplements. PHYSICAL EXAM - Gen Alert and awake Lying in bed No apparent distress Oriented to: person, time, and place - Skin No breakdown Normacephalic - Eyes No abnormalities - ENMT No abnormalities - Neck No abnormalities - CVS RRR - Chest Sternal incision healing well - Resp Clear to auscultation - Abd + bowel sounds - GI Soft Deferred - No abnormalities - Ext Mild postoperative vein harvesting edema in the right lower extremity - MSK 4+/5 weakness in both lower extremities. - Neuro No focal deficits - Psych No abnormalities ASSESSMENT: Pt. is a 69 yo Right-handed male.On 07/02/2020 he was admitted to [facility] with d iagnosis CAD.His impairment category is Cardiac 09 - Cardiac Disorders (09).Pre-morbidly, Pt. was in dependent/mod-I in Locomotion, Safety Awareness, Balance, Social Cognition, Transfers Control, Sphinc ter Control, Self-Care, Communication, and Endurance; and he had good Locomotion, Safety Awareness, B alance, Social Cognition, Transfers Control, Sphincter Control, Self-Care, and Communication.Currentl y, he has deficits of Locomotion, Safety Awareness, Balance, Social Cognition, Transfers Control, Deanna f-Care, Communication, Endurance, and Sphincter Control.Pt. is now referred to [facility] for acute in-patient rehabilitation in order to maximize patient's functional independenc e in activities of daily living, strength, ROM, and mobility.- Rehab Goal Patient has realistic goal of being discharged at assistance level 7-Ind to reside at Home with Fami ly/Relatives. MDM/PLAN: - Physical Therapy Gait dysfunction - to improve, our physical therapists will perform initial evaluation of pt's statu s upon admission and devise an individualized program for Gait Training, and Wheel Chair mobility Inability to transfer - to improve, our physical therapists will perform initial evaluation of pt's status upon admission and devise an individualized program for Bed mobility Need for home safety evaluation - to improve, our physical therapists will perform initial evaluatio n of pt's status upon admission and devise an individualized program for Home Evaluation Need in caregiver upon discharge - to improve, our physical therapists will perform initial evaluati on of pt's status upon admission and devise an individualized program for Caregiver Training New precaution - to improve, our physical therapists will perform initial evaluation of pt's status upon admission and devise an individualized program for Patient precaution education Edema - to improve, our physical therapists will perform initial evaluation of pt's status upon admi ssion and devise an individualized program for Elevation Training, and Lymphedema Therapy Poor balance - to improve, our physical therapists will perform initial evaluation of pt's status up on admission and devise an individualized program for Balance Training Poor endurance - to improve, our physical therapists will perform initial evaluation of pt's status upon admission and devise an individualized program for Endurance Training Weakness - to improve, our physical therapists will perform initial evaluation of pt's status upon a dmission and devise an individualized program for Aquatic Therapy, Neuromuscular Reeducation, and Str engthening Achieving independence - to improve, our physical therapists will perform initial evaluation of pt's status upon admission and devise an individualized program for Community Reintegration Activities - Occupational Therapy ADL deficits - to improve, our occupation therapists will perform initial evaluation of pt's status upon admission and devise an individualized program for Bathing, Bed mobility, Community Reintegratio n, Cooking, Dressing, Eating, Fine Motor Skills, Grooming, Homemaking, Kitchen Mobility, Laundry, Pat ient Education, Safety Awareness, Splinting - Positioning, Transfers(Toilet, Tub, Shower), and Wheel Chair Management Cognitive deficits - to improve, our occupation therapists will perform initial evaluation of pt's s tatus upon admission and devise an individualized program for Cognition - orientation Need for primary care coordinator - to improve, our occupation therapists will perform initial evaluation of pt's status upon admission and devise an individualized program for Caregiver Training Weakness - to improve, our occupation therapists will perform initial evaluation of pt's status upon admission and devise an individualized program for Aquatic Therapy, Balance, Endurance, UE ROM, and UE strengthening - Other See attached MAR (Medication Administration Record) - Diet Type Continue Regular - Diet - Liquid Texture Continue Regular - Tube Feed Continue N/A - Lab Results blood Sugar Check ACHS - Diet - Solid Texture Continue Regular - Shower allowing shower FUNCTIONAL STATUS: UPDATED AT WEEKLY TEAM CONFERENCE - Bladder Same accident frequency: 7-Ind - No accidents in the past 7 days - Bowel Same accident frequency: 7-Ind - No accidents in the past 7 days - Walking Same score based on distance walked: 0(N/A) Same score based on distance walked: 3(>=150ft) - Wheelchair Same score based on distance traveled: 0(N/A) FUNCTIONAL STATUS: - Self-Care A. Eating Lety B. Grooming sup C. Bathing Loli D. Dressing - Upper Loli E. Dressing - Lower modA F. Toileting Loli - Sphincter Control G. Bladder control Loli H. Bowel control Loli - Transfers Control I. Bed/Chair/Wheelchair sup J. Toilet sup K. Tub/Shower sup - Locomotion L. Walk/Wheelchair (B) Loli M. Stairs modA - Communication N. Comprehension (B) Loli O. Expression (B) sup - Social Cognition P. Social Interaction sup Q. Problem Solving sup R. Memory sup - Endurance Good - Balance Fair - Safety Awareness Fair QI SCORES: - Self-Care A. Eating 04-Supervision or touching assistance B. Oral hygiene 04-Supervision or touching assistance C. Toileting hygiene 02-Substantial/maximal assistance E. Shower/bathe self 02-Substantial/maximal assistance F. Upper body dressing 04-Supervision or touching assistance G. Lower body dressing 02-Substantial/maximal assistance H. Putting on/taking off footwear 88-Not attempted due to medical condition or safety concerns - Mobility A. Roll left and right 03-Partial/moderate assistance B. Sit to lying 03-Partial/moderate assistance C. Lying to sitting on side of bed 03-Partial/moderate assistance D. Sit to stand 03-Partial/moderate assistance E. Chair/sby-jz-mrwwm transfer 03-Partial/moderate assistance F. Toilet transfer 03-Partial/moderate assistance G. Car transfer 88-Not attempted due to medical condition or safety concerns I. Walk 10 feet 03-Partial/moderate assistance J. Walk 50 feet with two turns 88-Not attempted due to medical condition or safety concerns K. Walk 150 feet 04-Supervision or touching assistance L. Walking 10 feet on uneven surfaces 88-Not attempted due to medical condition or safety concerns M. 1 step (curb) 88-Not attempted due to medical condition or safety concerns N. 4 steps 88-Not attempted due to medical condition or safety concerns O. 12 steps 88-Not attempted due to medical condition or safety concerns P. Picking up object 88-Not attempted due to medical condition or safety concerns R. Wheel 50 feet with two turns 88-Not attempted due to medical condition or safety concerns S. Wheel 150 feet 88-Not attempted due to medical condition or safety concerns - Bladder and Bowel Bladder continence 0-Always continent Bowel continence 0-Always continent - Endurance Fair - Balance Fair - Safety Awareness Fair CURRENT [facility]. DEFICITS: Self-Care, Mobility, Endurance, Balance, and Safety Awareness SIGNATURE PANEL: (CDT)
[2020-07-31] MEDS: TAMSULOSIN 0.4 MG SR CAP PO SCH (20:13)
[2020-07-31] MEDS: DOCUSATE NA/SENNA CONC 1 TAB PO PRN (20:13)
[2020-07-31] MEDS: ATORVASTATIN 10 MG TAB PO SCH (20:13)
[2020-07-31] MEDS: MELATONIN 3 MG TABLET PO PRN (20:13)
[2020-07-31] MEDS: FINASTERIDE 5 MG TAB PO SCH (20:13)
[2020-08-01] MEDS: METOPROLOL TAR 25 MG TAB PO SCH ×2 (05:29→16:54)
[2020-08-01] MEDS: LEVOTHYROXINE SOD 0.025 MG TAB PO SCH (06:35)
[2020-08-01 06:43] LABS: Basophils % 2.9 % (0-1.3); Hematocrit 30.7 % (39.6-49.0); Lymphocytes % 18.1 % (15.3-44.8); MPV 8.6 fL (7.6-11.3); RBC Red Blood Cell Count 3.42 M/uL (4.33-5.43)
[2020-08-01] MEDS: INSULIN -REGULAR HUMAN 50 UNIT/0.5 ML ML SQ SCH ×4 (07:06→20:35)
[2020-08-01 07:08] LABS: Albumin 3.4 g/dL (3.4-5.0); Magnesium 2.3 mg/dL (1.8-2.4); Potassium 4.8 mmol/L (3.5-5.1); Prealbumin 23.9 mg/dL (20-40)
[2020-08-01] MEDS: LIDOCAINE 4% PATCH TOP SCH (08:22)
[2020-08-01] MEDS: CALCITROL 0.25 MCG CAP PO SCH (08:23)
[2020-08-01] MEDS: FAMOTIDINE 20 MG TAB PO SCH (08:23)
[2020-08-01] MEDS: ASPIRIN EC 81 MG TAB PO SCH (08:23)
[2020-08-01] MEDS: CLOPIDOGREL 75 MG TABLET PO SCH (08:23)
[2020-08-01] MEDS: MULTIVITAMINS,THERAPEUT 1 TAB PO SCH (08:26)
[2020-08-01] MEDS: ACETAMINOPHEN 500 MG TAB PO PRN (08:26)
[2020-08-01] MEDS: INSULIN LISPRO 100 UNIT/1 ML SQ SCH ×3 (08:27→17:25)
--- NOTE | 2020-08-01 14:33 | PN ---
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 The patient tolerating dialysis, due for dialysis today. Physical Examination: Vital Signs: Blood pressure 120/68, pulse of 67. Chest: Clear to auscultation. Heart: S1, S2. Regular. Right IJ PermCath. Abdomen: Soft, nontender. Extremity: Trace edema on the right side with . Neuro: Alert. No focality. Laboratory Data: WBC 5.5, H and H 9.9/30.7. Sodium 139, potassium 4.8, bicarb 26, BUN 33, creatinin e 3.5, GFR of 17. This is predialysis. Calcium 8.8. Current Medications: The patient on include; 1.Aspirin. 2.Flomax. 3.IV iron. 4.Atorvastatin. 5.Metoprolol. 6.Pepcid. 7.Calcitriol. Assessment And Plan: 1.Acute kidney injury on chronic kidney disease, nonoliguric. We will continue the patient on dialy sis. The patient needs to be evaluated because possibly he had some recovery on the kidney function and to start weaning from dialysis gradually. 2.Hypertension, controlled, optimal. Keep avoiding any YAS inhibitor and ARB given the watching for acute kidney injury recovery. 3.Anemia of chronic kidney disease. Continue IV iron. 4.Deconditioning. Continue PT, OT. EVA/[place] Voice ID: [id number] Report ID: [id number]
--- NOTE | 2020-08-01 14:36 | RAD REPORT ---
EXAM DESCRIPTION: RAD - Chest Single View - 08/01/2020 2:29 pm CLINICAL HISTORY: cough COMPARISON: July 27 TECHNIQUE: AP portable chest image was obtained 08/01/2020 2:29 pm . FINDINGS: Double-lumen dialysis catheter is present on the right. Lung volumes are low. Right lung f ield is clear. Left base opacification is present obscuring the left hemidiaphragm and portions of th e left heart border. Left costophrenic angle blunting is present. Heart size is upper normal and stab le. No acute vascular engorgement. No pneumothorax or large pleural effusion. Sternotomy wires are in place. No acute bony abnormality seen. No acute aortic findings suspected. IMPRESSION: Left base infiltrate and/or atelectasis with suspected small left pleural effusion.
--- NOTE | 2020-08-01 17:23 | R.PN ---
PROGRESS NOTES ENCOUNTER DATE AND TIME: 08/01/2020 17:19 (CDT) NAME NIKOLAY SOTELO DATE OF : 1950 DATE OF ADMISSION: 07/23/2020 11:08 (CDT) CAD/NSTEMICHIEF COMPLAINT: CAD, NSTEMI, debility SUBJECTIVE: Pt denied any depression. Pt denied any Shortness of Breath. WBC 5.1, Hgb 9.0, Practice Specialist 2.66, glucose 70 to 180, UA trace esterase, COVID-19 negative. Ambulated 1750' with independence using a rolling walker. Up and down 15 steps with independence. Deanna f-propelled wheelchair 500' with independence. VITAL SIGNS Temperature: 97.4F SBP/DBP: 120/68 Pulse: 67 Resp: 16 MEDICATION ALLERGIES: No Known Drug Allergies (NKDA) ENVIRONMENTAL ALLERGIES: - Substance Allergies None Known - Other Allergies None Known NURSING: - Shower allowing shower - Lab Results blood Sugar Check ACHS ACTIVITIES OOB only with supervision THERAPIES: - Dietary and Nutrition Adequate Nutrition. Nutritional Education. Nutritional Supplements. PHYSICAL EXAM - Gen Alert and awake Lying in bed No apparent distress Oriented to: person, time, and place - Skin No breakdown Normacephalic - Eyes No abnormalities - ENMT No abnormalities - Neck No abnormalities - CVS RRR - Chest Sternal incision healing well - Resp Clear to auscultation - Abd + bowel sounds - GI Soft Deferred - No abnormalities - Ext Mild postoperative vein harvesting edema in the right lower extremity - MSK 4+/5 weakness in both lower extremities. - Neuro No focal deficits - Psych No abnormalities ASSESSMENT: Pt. is a 69 yo Right-handed male.On 07/02/2020 he was admitted to [facility] with d iagnosis CAD.His impairment category is Cardiac 09 - Cardiac Disorders (09).Pre-morbidly, Pt. was in dependent/mod-I in Locomotion, Safety Awareness, Balance, Social Cognition, Transfers Control, Sphinc ter Control, Self-Care, Communication, and Endurance; and he had good Locomotion, Safety Awareness, B alance, Social Cognition, Transfers Control, Sphincter Control, Self-Care, and Communication.Currentl y, he has deficits of Locomotion, Safety Awareness, Balance, Social Cognition, Transfers Control, Deanna f-Care, Communication, Endurance, and Sphincter Control.Pt. is now referred to [facility] for acute in-patient rehabilitation in order to maximize patient's functional independenc e in activities of daily living, strength, ROM, and mobility.- Rehab Goal Patient has realistic goal of being discharged at assistance level 7-Ind to reside at Home with Fami ly/Relatives. MDM/PLAN: - Physical Therapy Gait dysfunction - to improve, our physical therapists will perform initial evaluation of pt's statu s upon admission and devise an individualized program for Gait Training, and Wheel Chair mobility Inability to transfer - to improve, our physical therapists will perform initial evaluation of pt's status upon admission and devise an individualized program for Bed mobility Need for home safety evaluation - to improve, our physical therapists will perform initial evaluatio n of pt's status upon admission and devise an individualized program for Home Evaluation Need in caregiver upon discharge - to improve, our physical therapists will perform initial evaluati on of pt's status upon admission and devise an individualized program for Caregiver Training New precaution - to improve, our physical therapists will perform initial evaluation of pt's status upon admission and devise an individualized program for Patient precaution education Edema - to improve, our physical therapists will perform initial evaluation of pt's status upon admi ssion and devise an individualized program for Elevation Training, and Lymphedema Therapy Poor balance - to improve, our physical therapists will perform initial evaluation of pt's status up on admission and devise an individualized program for Balance Training Poor endurance - to improve, our physical therapists will perform initial evaluation of pt's status upon admission and devise an individualized program for Endurance Training Weakness - to improve, our physical therapists will perform initial evaluation of pt's status upon a dmission and devise an individualized program for Aquatic Therapy, Neuromuscular Reeducation, and Str engthening Achieving independence - to improve, our physical therapists will perform initial evaluation of pt's status upon admission and devise an individualized program for Community Reintegration Activities - Occupational Therapy ADL deficits - to improve, our occupation therapists will perform initial evaluation of pt's status upon admission and devise an individualized program for Bathing, Bed mobility, Community Reintegratio n, Cooking, Dressing, Eating, Fine Motor Skills, Grooming, Homemaking, Kitchen Mobility, Laundry, Pat ient Education, Safety Awareness, Splinting - Positioning, Transfers(Toilet, Tub, Shower), and Wheel Chair Management Cognitive deficits - to improve, our occupation therapists will perform initial evaluation of pt's s tatus upon admission and devise an individualized program for Cognition - orientation Need for youth care worker - to improve, our occupation therapists will perform initial evaluation of pt's status upon admission and devise an individualized program for Caregiver Training Weakness - to improve, our occupation therapists will perform initial evaluation of pt's status upon admission and devise an individualized program for Aquatic Therapy, Balance, Endurance, UE ROM, and UE strengthening - Other See attached MAR (Medication Administration Record) - Diet Type Continue Regular - Diet - Liquid Texture Continue Regular - Tube Feed Continue N/A - Lab Results blood Sugar Check ACHS - Diet - Solid Texture Continue Regular - Shower allowing shower FUNCTIONAL STATUS: UPDATED AT WEEKLY TEAM CONFERENCE - Bladder Same accident frequency: 7-Ind - No accidents in the past 7 days - Bowel Same accident frequency: 7-Ind - No accidents in the past 7 days - Walking Same score based on distance walked: 0(N/A) Same score based on distance walked: 3(>=150ft) - Wheelchair Same score based on distance traveled: 0(N/A) FUNCTIONAL STATUS: - Self-Care A. Eating Lety B. Grooming sup C. Bathing Loli D. Dressing - Upper Loli E. Dressing - Lower modA F. Toileting Loli - Sphincter Control G. Bladder control Loli H. Bowel control Loli - Transfers Control I. Bed/Chair/Wheelchair sup J. Toilet sup K. Tub/Shower sup - Locomotion L. Walk/Wheelchair (B) Loli M. Stairs modA - Communication N. Comprehension (B) Loli O. Expression (B) sup - Social Cognition P. Social Interaction sup Q. Problem Solving sup R. Memory sup - Endurance Good - Balance Fair - Safety Awareness Fair QI SCORES: - Self-Care A. Eating 04-Supervision or touching assistance B. Oral hygiene 04-Supervision or touching assistance C. Toileting hygiene 02-Substantial/maximal assistance E. Shower/bathe self 02-Substantial/maximal assistance F. Upper body dressing 04-Supervision or touching assistance G. Lower body dressing 02-Substantial/maximal assistance H. Putting on/taking off footwear 88-Not attempted due to medical condition or safety concerns - Mobility A. Roll left and right 03-Partial/moderate assistance B. Sit to lying 03-Partial/moderate assistance C. Lying to sitting on side of bed 03-Partial/moderate assistance D. Sit to stand 03-Partial/moderate assistance E. Chair/[id number] transfer 03-Partial/moderate assistance F. Toilet transfer 03-Partial/moderate assistance G. Car transfer 88-Not attempted due to medical condition or safety concerns I. Walk 10 feet 03-Partial/moderate assistance J. Walk 50 feet with two turns 88-Not attempted due to medical condition or safety concerns K. Walk 150 feet 04-Supervision or touching assistance L. Walking 10 feet on uneven surfaces 88-Not attempted due to medical condition or safety concerns M. 1 step (curb) 88-Not attempted due to medical condition or safety concerns N. 4 steps 88-Not attempted due to medical condition or safety concerns O. 12 steps 88-Not attempted due to medical condition or safety concerns P. Picking up object 88-Not attempted due to medical condition or safety concerns R. Wheel 50 feet with two turns 88-Not attempted due to medical condition or safety concerns S. Wheel 150 feet 88-Not attempted due to medical condition or safety concerns - Bladder and Bowel Bladder continence 0-Always continent Bowel continence 0-Always continent - Endurance Fair - Balance Fair - Safety Awareness Fair CURRENT [facility]. DEFICITS: Self-Care, Mobility, Endurance, Balance, and Safety Awareness SIGNATURE PANEL: (CDT)
[2020-08-01] MEDS: ENOXAPARIN 30 MG/0.3 ML SQ SCH (17:27)
[2020-08-01] MEDS: TAMSULOSIN 0.4 MG SR CAP PO SCH (19:42)
[2020-08-01] MEDS: FINASTERIDE 5 MG TAB PO SCH (19:43)
[2020-08-01] MEDS: ATORVASTATIN 10 MG TAB PO SCH (19:43)
[2020-08-01] MEDS: MELATONIN 3 MG TABLET PO PRN (19:43)
--- NOTE | 2020-08-01 20:48 | RAD REPORT ---
EXAM DESCRIPTION: US - Extremity Venous Uni Ltd - 08/01/2020 7:56 pm CLINICAL HISTORY: right lower extremitypain and swelling COMPARISON: None. TECHNIQUE: Real-time sonographic evaluation of the right lower extremity deep venous systems was per formed. FINDINGS: Normal compressibility, flow augmentation, phasic flow and spontaneous flow are identified in the right lower extremity common femoral, superficial femoral, popliteal and posterior tibial vei ns. No intraluminal filling defects seen. IMPRESSION: No DVT in the right lower extremity.
[2020-08-02] MEDS: METOPROLOL TAR 25 MG TAB PO SCH (05:24)
[2020-08-02] MEDS: LEVOTHYROXINE SOD 0.025 MG TAB PO SCH (06:53)
[2020-08-02 07:11] VITALS: BP 146/70; TEMP 97.2
[2020-08-02] MEDS: INSULIN -REGULAR HUMAN 50 UNIT/0.5 ML ML SQ SCH (07:19)
[2020-08-02] MEDS: LIDOCAINE 4% PATCH TOP SCH (07:33)
[2020-08-02] MEDS: FAMOTIDINE 20 MG TAB PO SCH (07:34)
[2020-08-02] MEDS: MULTIVITAMINS,THERAPEUT 1 TAB PO SCH (07:34)
[2020-08-02] MEDS: CLOPIDOGREL 75 MG TABLET PO SCH (07:34)
[2020-08-02] MEDS: ASPIRIN EC 81 MG TAB PO SCH (07:34)
[2020-08-02] MEDS: CALCITROL 0.25 MCG CAP PO SCH (08:00)
[2020-08-02] MEDS: INSULIN LISPRO 100 UNIT/1 ML SQ SCH (08:35)
--- NOTE | 2020-08-02 09:56 | P.RH.PN ---
Estimated Length of Stay: 11 Expected Discharge Date: 08/02/20 Discharge Disposition Plan: Home Family Support: Yes Mcfp Goal: Mobility, Transfers, Self Care Vital Signs: Last Vital Signs Temp 97.2 F 08/02/20 07:10 Pulse 79 08/02/20 07:10 Resp 16 08/02/20 07:10 BP 146/70 H 08/02/20 07:10 Pulse Ox 97 08/02/20 07:10 Laboratory: Laboratory Last Values WBC 5.50 K/uL (4.3-10.9) 08/01/20 06:05 RBC 3.42 M/uL (4.33-5.43) L 08/01/20 06:05 Hgb 9.9 g/dL (13.6-17.9) L 08/01/20 06:05 Hct 30.7 % (39.6-49.0) L D 08/01/20 06:05 MCV 89.6 fL (80-100) 08/01/20 06:05 MCH 28.8 pg (27.0-35.0) 08/01/20 06:05 MCHC 32.2 g/dL (32.0-36.0) 08/01/20 06:05 RDW 16.6 % (12.1-15.2) H 08/01/20 06:05 Plt Count 254 K/uL (152-406) 08/01/20 06:05 MPV 8.6 fL (7.6-11.3) 08/01/20 06:05 Neutrophils % 63.7 % (41.7-73.7) 08/01/20 06:05 Lymphocytes % 18.1 % (15.3-44.8) 08/01/20 06:05 Monocytes % 11.8 % (3.3-12.3) 08/01/20 06:05 Eosinophils % 3.5 % (0-4.4) 08/01/20 06:05 Basophils % 2.9 % (0-1.3) H 08/01/20 06:05 Absolute Neutrophils 3.5 K/uL (1.8-8.0) 08/01/20 06:05 Absolute Lymphocytes 1.0 K/uL (0.7-4.9) 08/01/20 06:05 Absolute Monocytes 0.7 K/uL (0.1-1.3) 08/01/20 06:05 Absolute Eosinophils 0.2 K/uL (0-0.5) 08/01/20 06:05 Absolute Basophils 0.2 K/uL (0-0.5) 08/01/20 06:05 Sodium 139 mmol/L (136-145) 08/01/20 06:05 Potassium 4.8 mmol/L (3.5-5.1) 08/01/20 06:05 Chloride 108 mmol/L (98-107) H 08/01/20 06:05 Carbon Dioxide 26 mmol/L (21-32) 08/01/20 06:05 BUN 33 mg/dL (7-18) H 08/01/20 06:05 Creatinine 3.54 mg/dL (0.55-1.3) H 08/01/20 06:05 Estimated GFR 17 mL/min (=/>90) L 08/01/20 06:05 Glucose 148 mg/dL (74-106) H 08/01/20 06:05 POC Glucose 171 mg/dL (65-120) H 08/02/20 06:55 Calcium 8.8 mg/dL (8.5-10.1) 08/01/20 06:05 Phosphorus 3.9 mg/dL (2.5-4.9) 07/29/20 05:24 Magnesium 2.3 mg/dL (1.8-2.4) D 08/01/20 06:05 Albumin 3.4 g/dL (3.4-5.0) 08/01/20 06:05 Prealbumin 23.9 mg/dL (20-40) 08/01/20 06:05 Urine Color Yellow (Yellow) 07/24/20 00:22 Urine Appearance Clear (Clear) 07/24/20 00:22 Urine pH 7.5 (5.0-7.0) H 07/24/20 00:22 Ur Specific Clarence <=1.005 (1.005-1.030) 07/24/20 00:22 Glucose (UA)(Auto) 2+ (Negative) H 07/24/20 00:22 Urine Ketones Negative (Negative) 07/24/20 00:22 Urine Blood Trace (Negative) H 07/24/20 00:22 Urine Nitrite Negative (Negative) 07/24/20 00:22 Urine Bilirubin Negative (Negative) 07/24/20 00:22 Urine Urobilinogen 0.2 mg/dL (0.2-1.0) 07/24/20 00:22 Ur Leukocyte Esterase Trace (Negative) H 07/24/20 00:22 Urine RBC <5 /HPF (NONE SEEN) 07/24/20 00:22 Urine WBC <5 /HPF (<5) 07/24/20 00:22 Ur Squamous Epith Cells <5 /HPF (NONE SEEN) 07/24/20 00:22 Ur Urothelial Cells <5 /HPF (NONE SEEN) 07/24/20 00:22 Urine Bacteria <20 /HPF (NONE SEEN) 07/24/20 00:22 Urine Culture Reflexed Not needed 07/24/20 00:22 Urine Total Protein 2+ (Negative) H 07/24/20 00:22 Hep Bs Antigen Nonreactive (Nonreactive) 07/25/20 13:06 Hep Bs Antibody, Quant <5 mIU/mL (>=10) L 07/25/20 13:06 Hep B Core IgM Ab Nonreactive (Nonreactive) 07/25/20 13:06 SARS-CoV-2 RNA (RT-PCR) Negative (NEGATIVE) 07/30/20 09:20 Weight: 149 lb 9.6 oz Wound Present: No Closed Surgical Incision Present: Yes Negative Pressure Wound Therapy Present: No Physician Update: His labs were reviewed and are stable. He has met his goals for physical and occupational therapy. Functional Improvement: Patient has met all short-term and long-term goals, w/ the exception of performing a car transfer, due to lack of equipment, and for D/C from hospital. Patient has no longer required VC for sternal precautions, and completes tasks w/ good technique and safety awareness. 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 Please see the Rehabilitation Signature page for all necessary signatures.
[2020-08-03] MEDS ORDERED: SOD FERRIC GLUC COMPLX/SUCROSE 125 MG in NA CHLORIDE 0.9% 100 ML IV ONE (17:00)
== END 2020-08-02 10:30 | disposition home health service (06) | DRG 949 ==
LOC: 5TH 23:16
PROVIDERS: ADMIT Psychiatry & Neurology Neurology with Special Qualifications in Child Neurology; ATTEND Psychiatry & Neurology Neurology with Special Qualifications in Child Neurology
PROC: 5A1D70Z Performance of Urinary Filtration, Intermittent, Less than 6 Hours Per Day (ICD-10-PCS; principal; 2020-07-25)
PROC: 5A1D70Z Performance of Urinary Filtration, Intermittent, Less than 6 Hours Per Day (ICD-10-PCS; 2020-07-28)
PROC: 5A1D70Z Performance of Urinary Filtration, Intermittent, Less than 6 Hours Per Day (ICD-10-PCS; 2020-07-30)
PROC: 5A1D70Z Performance of Urinary Filtration, Intermittent, Less than 6 Hours Per Day (ICD-10-PCS; 2020-08-01)
DX: Z48.812 Encounter for surgical aftercare following surgery on the circulatory system (principal); I21.4 Non-ST elevation (NSTEMI) myocardial infarction; N18.6 End stage renal disease; I12.0 Hypertensive chronic kidney disease with stage 5 chronic kidney disease or end stage renal disease; N17.9 Acute kidney failure, unspecified; I25.10 Atherosclerotic heart disease of native coronary artery without angina pectoris; E11.22 Type 2 diabetes mellitus with diabetic chronic kidney disease; E11.21 Type 2 diabetes mellitus with diabetic nephropathy; E11.40 Type 2 diabetes mellitus with diabetic neuropathy, unspecified; B19.20 Unspecified viral hepatitis C without hepatic coma; D63.1 Anemia in chronic kidney disease; E87.5 Hyperkalemia; N25.0 Renal osteodystrophy; Z99.2 Dependence on renal dialysis; Z95.1 Presence of aortocoronary bypass graft; Z20.822 Contact with and (suspected) exposure to COVID-19
CPT/HCPCS: 36415; 71045; 74018; 80048; 80069; 81001; 82040; 82947; 83735; 84134; 85025; 86317; 86705; 87086; 87088; 87340; 90935; 92523; 93971; 97110; 97112; 97116; 97127; 97161; 97530; 97542; J1644; J1650; J1815; Q5105; Q5106; U0003